=== PATIENT | female | born 1995 | race African-American/Black ===

== ENCOUNTER 2022-09-27 18:17 | Emergency (ER) | payer MEDICAID, SELFPAY ==
--- NOTE | 2022-09-27 18:20 | ED_ITS ---
HPI - Ear Problem General Chief complaint: Ear Problems Stated complaint: ear pain Time Seen by Provider: 09/27/22 18:22 Source: patient Mode of arrival: ambulatory Limitations: no limitations and language barrier History of Present Illness HPI Narrative: 27 yo female healthy here with right ear pain, itching. No drainage. No hearing change. No recent URI symptoms. Related Data Previous Rx's Medication Instructions Recorded acetaminophen 325 mg tablet 650 mg PO Q6H PRN fever or pain 09/27/22 (Tylenol) #30 tabs amoxicillin 500 mg tablet 500 mg PO BID #20 tabs 09/27/22 ibuprofen 600 mg tablet 600 mg PO Q8H PRN pain #30 tabs 09/27/22 ofloxacin 0.3 % ear drops 10 drp otic (ears) DAILY 7 days #5 09/27/22 mL Allergies Allergy/AdvReac Type Severity Reaction Status Date / Time No Known Allergies Allergy Verified 09/27/22 18:24 Review of Systems Review of Systems: Yes all other systems are reviewed and are negative Constitutional: Constitutional: Reports no additional constitutional complaints, Denies body ache(s), Denies chills, Denies fever(s), Denies headache(s) and Denies weakness Eyes: Eyes: Reports no additional eye complaints and Denies change in vision ENT: Reports system reviewed and no additional complaints, except as documented, Reports Normal hearing present, Denies dizziness, Reports otalgia, Denies headache(s), Denies nasal congestion, Denies nasal discharge, Denies neck pain and Denies sore throat Cardiovascular: Cardiovascular: Reports no additional cardiovascular complaints, Denies chest pain, Denies leg edema and Denies dyspnea Respiratory: Respiratory: Reports no additional respiratory complaints, Denies cough and Denies dyspnea Gastrointestinal: Gastrointestinal: Reports no additional gastrointestinal complaints, Denies abdominal pain, Denies diarrhea, Denies nausea and Denies vomiting Genitourinary: Genitourinary: Reports no additional female genitourinary complaints and Denies urinary incontinence Musculoskeletal: Musculoskeletal: Reports no additional musculoskeletal complaints, Denies back pain, Denies arthralgias, Denies joint swelling, Denies neck pain, Denies numbness and Denies tingling Integumentary/Breasts: Skin/Breast: Reports system reviewed and no additional complaints, except as docu and Denies rash Neurologic: Reports system reviewed and no additional complaints, except as documented, Reports Normal hearing present, Denies Abnormal speech present, Denies dizziness, Denies headache(s), Denies numbness, Denies tingling and Denies weakness PMFSH Past Medical History Attestation statement: The following information was validated with the patient. Source: old records reviewed and nursing notes reviewed Physical Exam Vital Signs: Vital Signs: Last Vital Signs Temp 98.2 F 09/27/22 18:21 Pulse 72 09/27/22 18:21 Resp 18 09/27/22 18:21 BP 129/71 09/27/22 18:21 Pulse Ox 98 09/27/22 18:21 O2 Del Method Room Air 09/27/22 18:21 BMI result Body Mass Index 33.6 Const: General: cooperative, healthy appearing, comfortable and no acute distress Orientation/consciousness: patient oriented x3 Limitations: no limitations HEENT: Head: Yes normal to inspection Ears: hearing grossly normal bilat erally, TM normal on the left, mastoids normal, no periauricular adenopathy, Abnormal EAC present erythema, edema, EAC tenderness and otic discharge and TM abnormal bulging, wth effusion, erythematous and with fluid behind the TM General nose exam: Normal external nose present Face and sinus: Yes normal facial exam Mouth: Normal oral and palatal mucosa present Throat: Yes posterior oropharynx normal, Yes tonsils normal and Yes uvula midline Eyes: General: appearance normal, both eyes and all related structures Pupils: Equal, round and reactive pupils present Neck: Neck: Yes normal visual inspection, Yes full ROM, Yes no lymphadenopathy and Yes no meningeal signs Chest: Chest palpation & inspection: normal inspection of the chest Resp: Effort & Inspection: normal respiratory effort Auscultation: clear to auscultation bilaterally Cardio: Rate: regular rate Rhythm: regular rhythm Peripheral pulses: Peripheral pulses 2+ throughout GI: Inspection: Yes normal to inspection Palpation (GI): Soft to palpation and nontender Auscultation: normal bowel sounds Back/Spine/Pelvis: Thoracic/Lumbar Spine: thoracic and lumbar spine normal to inspection Skin: General skin exam: no rashes or lesions noted Neuro: General: patient oriented x3, no meningeal signs, no focal motor deficits and normal sensation to monofilament Cranial nerves: Yes Equal, round and reactive pupils present and Yes Normal hearing present Cognition (Neuro): normal cognition Speech: No Abnormal speech present Gait exam (Neuro): Normal gait present Motor exam (neuro): 5/5 motor strength present throughout Extrem: General: Yes normal to inspection Medical Decision Making Medical Decision Making MDM Narrative: 27 yo female here with right ear pain/itching beginning today Exam c/w with otitis externa/AOM. No evidence of mastoid tenderness, periauricular adenopathy. WIll treat with amoxicillin x 10 days, ofloxacin gtt Differential Diagnosis Differential Diagnoses: The differential diagnosis associated with the presentation includes otitis externa, AOM, malignant otitis externa, mastoditis, TM perforation Discharge Plan Discharge Clinical Impression: Otitis media, Otitis externa Patient Disposition: Home, Self-Care Instructions: Otitis Externa (ED), How to Use Ear Drops (ED), Ear Infection (ED) Prescriptions: New amoxicillin 500 mg tablet 500 mg PO BID Qty: 20 0RF ofloxacin 0.3 % drops 10 drp otic (ears) DAILY 7 Days Qty: 5 0RF ibuprofen 600 mg tablet 600 mg PO Q8H PRN (Reason: pain) Qty: 30 0RF acetaminophen [Tylenol] 325 mg tablet 650 mg PO Q6H PRN (Reason: fever or pain) Qty: 30 0RF Referrals: Physician,None [Primary Care Provider] - 1 week
[2022-09-27 18:21] VITALS: BP 129/71; PULSE 72; RESP 18; TEMP 36.8; O2SAT 98; BMI 33.6
== END 2022-09-27 18:36 | disposition home or self-care (01) ==
LOC: HO.ED 18:33
PROVIDERS: Emergency Provider Student in an Organized Health Care Education/Training Program
DX: H66.93 Otitis media, unspecified, bilateral (principal); H60.93 Unspecified otitis externa, bilateral; H92.03 Otalgia, bilateral
CPT/HCPCS: 99282; 99283

== ENCOUNTER 2023-05-01 11:41 | Emergency (ER) | payer OTHER, SELFPAY ==
--- NOTE | ~2023-05-01 | US_ITS ---
EXAMINATION: US OBSTETRICAL ULTRASOUND CLINICAL INFORMATION: Pain and bleeding. HCG 2437 COMPARISON: None available. LMP: 03/19/2023. Gestational age by maternal dates is 6 weeks 1 day. Estimated date of delivery by maternal dates is 12/23/2022 TECHNIQUE: Transvaginal scanning was performed FINDINGS: There is an irregularly-shaped intrauterine gestational sac filled a large amount of mobile debris. There is no evidence of a yolk sac, pole or heart rate. Based on the gestational sac size of 2.75 cm estimated gestational age would be 8 weeks 0 days. There is fluid within the endocervical canal. MATERNAL ADNEXA: The right maternal ovary measures 3.6 x 1.7 x 2.1. The left maternal ovary measures 4.8 x 2.5 x 3.5 cm. Hyperechoic area seen adjacent to the left ovary likely represents bowel. It appears to move with abdominal compression. There is no significant maternal adnexal mass. There is a small amount of free fluid within the cul-de-sac. US/US OB pelvic and transvaginal IMPRESSION: Irregularly shaped intrauterine gestational sac filled with a large amount of mobile debris. No evidence of yolk sac, pole or cardiac activity. Based on the gestational sac size of 2.75 cm, estimated gestational age would be 8 weeks 0 days. These findings are concerning for demise or lack of development. Follow-up ultrasound in 7-10 days could be performed for further evaluation.
[2023-05-01 11:59] VITALS: BP 119/80; PULSE 95; RESP 17; TEMP 36.6; O2SAT 99; BMI 36.7
--- NOTE | 2023-05-01 12:02 | ED.GENADULT ---
HPI - General Adult General Chief complaint: Vaginal Bleeding Stated complaint: Not feeling well - Time Seen by Provider: 05/01/23 16:42 Source: patient Mode of arrival: ambulatory Limitations: no limitations History of Present Illness HPI narrative: 28-year-old female presents to the ED for lower abdominal cramping with mild vaginal bleeding. Patient had 1st episode 2 days ago today started having symptoms again. Patient states presently only sees blood when she wipes. Patient denies any chest pain, shortness of breath, or any recent trauma. Related Data Previous Rx's Medication Instructions Recorded acetaminophen 325 mg tablet 650 mg (2 x 325 mg) PO Q6H PRN 09/27/22 (Tylenol) fever or pain #30 tabs amoxicillin 500 mg tablet 500 mg PO BID #20 tabs 09/27/22 ibuprofen 600 mg tablet 600 mg PO Q8H PRN pain #30 tabs 09/27/22 ofloxacin 0.3 % ear drops 10 drp otic (ears) DAILY 7 days #5 09/27/22 mL cephalexin 500 mg capsule 500 mg PO Q12H 7 days #14 caps 05/01/23 Allergies Allergy/AdvReac Type Severity Reaction Status Date / Time No Known Allergies Allergy Verified 05/01/23 11:58 Review of Systems Review of Systems: Lower abdominal cramping vaginal spotting Yes all other systems are reviewed and are negative [facility] Social History Social History Alcohol intake: never Smoked in Last 30 Days: No Use of substances other than those prescribed or required for medical reasons: No Advance Directives: No Advance Directives Information Provided: No Patient : Yes Physical Exam ED Vital Signs: Vital Signs - 24 hr 05/01/23 11:59 05/01/23 17:29 05/01/23 17:46 Temperature 98 F Pulse Rate 95 89 Respiratory Rate 17 19 18 Blood Pressure 119/80 124/71 Pulse Oximetry 99 99 Oxygen Delivery Method Room Air Room Air 05/01/23 19:31 Temperature 98.2 F Pulse Rate 89 Respiratory Rate 16 Blood Pressure 103/69 Pulse Oximetry 100 Oxygen Delivery Method Room Air BMI result Body Mass Index 36.7 Const General: cooperative, healthy appearing, comfortable, no acute distress, well developed, alert, awake and Physically active Orientation/consciousness: oriented to person, oriented to place, oriented to time and patient oriented x3 [facility] [place] Head: Yes normal to inspection, Yes No palpable skull fracture present, Yes normocephalic and Yes atraumatic Eyes General: appearance normal, both eyes and all related structures Neck Neck: Yes normal visual inspection, Yes full ROM, Yes no lymphadenopathy, Yes no meningeal signs, Yes trachea midline, Yes supple, No anterior neck swelling and No tender Chest Chest palpation & inspection: normal inspection of the chest and normal palpation of entire chest wall Resp Effort & Inspection: normal respiratory effort and able to speak in complete sentences Auscultation: clear to auscultation bilaterally Cardio Jugular venous distension: no JVD Heart sounds: S1 normal heart sound present and S2 normal heart sound present GI Inspection: Yes normal to inspection Palpation (GI): Soft to palpation, not firm, nontender, no guarding and not rigid General: Yes Bimanual renal exam normal bilaterally and Yes no CVA tenderness External Female Exam: normal external appearance Speculum Exam - Vagina: vaginal bleeding (mild from cervix) Speculum Exam - Cervix: normal appearance of the cervix and Cervical os closed Bimanual exam- vagina & uterus: normal bimanual exam OB/external & speculum: vaginal bleeding (mild from cervix) Back/Spine/Pelvis Back: no CVA tenderness and No back tenderness Skin General skin exam: no rashes or lesions noted, elasticity normal and turgor normal Neuro General: oriented to person, oriented to place, oriented to time, patient oriented x3, gait normal, tone normal, moves all extremities, Normal light touch and pain sensation, no meningeal signs, no focal motor deficits, CN's II-XI intact bilaterally and normal sensation to monofilament Extrem General: Yes normal to inspection and Yes full ROM Psych Appearance: grossly normal, well kempt and not disheveled Course Course Course Narrative: RME- 28-year-old female presents for evaluation of lower abdominal pain and vaginal bleeding. She reports that she recently found out that she is . Her last menstrual cycle was March 19. She is . Plan for labs, ultrasound and type and screen Medical Decision Making Medical Decision Making MDM Narrative: 28-year-old female presents to ED for lower abdominal cramping and mild vaginal bleeding. Patient states 1st episode bleeding was 2 days ago and then had some this morning. Patient states only sees blood when she wiped. Patient denies any chest pain or shortness of breath or any recent trauma. Labs ultrasound ordered from triage. Ultrasound shows possible demise. Rh ordered. 7:15Pm: Case discussed with Dr. Braun who states patient could be discharged. Patient informed to call for follow-up. Patient given copy of labs and ultrasound results. He states patient does not need Rhoghma Differential Diagnosis Differential Diagnoses: The differential diagnosis associated with the presentation includes ( demise, threatened ) Admission/Observation Consideration of admission/observation: Escalation of care including admission/observation considered Consult Healthcare Provider Management of the patient was discussed with: Manager Salt (Dr. Braun) Lab Data MDM Lab Attestation statement: I reviewed the patient's lab results. 05/01/23 12:48 05/01/23 12:48 Labs: Lab Results 05/01/23 05/01/23 05/01/23 Range/Units 12:48 17:15 17:19 WBC 8.8 (4.8-10.8) X10*3/uL RBC 4.87 (4.20-5.50) X10*6/uL Hgb 12.5 (12.0-16.0) g/dl Hct 39.9 (37.0-47.0) % MCV 81.9 (80.0-98.0) fL MCH 25.7 L (27.0-33.0) pg MCHC 31.3 (31.0-35.0) g/dl RDW 13.1 (11.0-16.0) % Plt Count 239 (160-400) X10*3/uL MPV 10.2 (9.4-12.3) fL Immature Gran % (Auto) 0.5 H (0.0-0.4) % Neut % (Auto) 62.9 (45-73) % Lymph % (Auto) 23.2 (20-40) % [place] % (Auto) 9.8 (2-11) % Eos % (Auto) 3.3 (0-4) % Baso % (Auto) 0.3 (0-2) % Lymph # (Auto) 2.0 (1.2-4.9) X10*3/uL [place] # (Auto) 0.9 (0.1-1.2) X10*3/uL Eos # (Auto) 0.3 (0.0-0.4) X10*3/uL Baso # (Auto) 0.0 (0.0-0.2) X10*3/uL Abs Immat Gran (auto) 0.04 H (0.00-0.03) X10*3/uL Absolute Neuts (auto) 5.5 (2.0-8.3) x10*3/uL Absolute Nucleated RBC 0.000 (0.0-0.012) X10*3/uL Nucleated RBC % (auto) 0.0 (0.0-0.2) /100WBC PT 11.9 (11.1-13.3) SEC INR 1.0 (0.9-1.1) APTT 30.5 (26.0-36.4) SEC Sodium 136 (135-145) mmol/L Potassium 4.2 (3.3-5.1) mmol/L Chloride 109 H (96-108) mmol/L Carbon Dioxide 22 (22-29) mmol/L Anion Gap 9 L (12-20) BUN 11 (9-16) mg/dL Creatinine 0.83 (0.5-1.4) mg/dL Estim Creat Clear Calc 139.3 Estimated GFR > 60 Random Glucose 101 (60-115) mg/dL Calcium 9.8 (8.4-10.2) mg/dL Total Bilirubin 0.4 (0.0-1.0) mg/dL AST 15 (5-31) U/L ALT 14 (0-31) U/L Alkaline Phosphatase 69 (39-117) U/L Total Protein 7.4 (6.5-8.0) g/dL Albumin 4.0 (3.5-5.0) g/dL Lipase 26 (8-78) U/L Beta HCG, Quant 2437 mIU/mL Urine Color Yellow Urine Appearance Turbid Urine pH 5.5 (5.0-9.0) Ur Specific [place] 1.025 (1.005-1.025) Urine Protein Negative (Neg-Trace) mg/dL Urine Glucose (UA) Negative (Negative) mg/dL Urine Ketones 15 (Negative) mg/dL Urine Blood Large (3+) H (Negative) Urine Nitrite Negative (Negative) Ur Leukocyte Esterase Negative (Negative) Urine RBC 3-5 H (0-2) /HPF Urine WBC 6-10 H (0-5) /HPF Ur Squamous Epith Cells >20 (0-2) /HPF Urine Bacteria 4+ (None Seen) Hyaline Casts 0-2 (0-2) /LPF Blood Type B Positive Antibody Screen NEGATIVE Independent Interpretation I performed an independent interpretation of an: Ultrasound Radiology Impression Discussion of test interpretation with radiology: I have reviewed the radiologist's reading. External Record Review External record reviewed: Other Prescription Management I considered prescription management with: Antibiotic Discharge Plan Discharge Clinical Impression: Threatened Patient Disposition: Home, Self-Care Instructions: Threatened Miscarriage (ED), Urinary Tract Infection in (ED) Additional Instructions: Ltrason ou a te montre posib lanm? fetis la. Radyol?g rek?mande repete ultrason nan 7-10 celio. 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 Retounen nan ED la imedyatman geo nenp?t doul? nan vant, lafy?v, frison, senyen abondan nan vajen, febl?s, v?tij, oswa nenp?t l?t sent?m kons?nan. Epitou swivi ak founis? swen prensipal ou. Your ultrasound showed possible demise. Radiologist recommend repeat ultrasound in 7-10 days. Spoke with our in-house director of construction who recommends follow-up with his clinic. Return to the ED immediately for any abdominal pain, fever, chills, profuse vaginal bleeding, weakness, dizziness, or any other concerning symptoms. Also follow-up with your primary care provider Prescriptions: New cephalexin 500 mg capsule 500 mg PO Q12H 7 Days Qty: 14 0RF No Action amoxicillin 500 mg tablet 500 mg PO BID Qty: 20 0RF ofloxacin 0.3 % drops 10 drp otic (ears) DAILY 7 Days Qty: 5 0RF ibuprofen 600 mg tablet 600 mg PO Q8H PRN (Reason: pain) Qty: 30 0RF acetaminophen [Tylenol] 325 mg tablet 650 mg PO Q6H PRN (Reason: fever or pain) Qty: 30 0RF Referrals: Gorge Braun MD [Physician] - (Possible demise as per ultrasound at 8 weeks. ) Interventions: ED Discharge Assessment Last Done: 05/01/23 19:35 Discharge Date/Time: 05/01/23 20:09 Print Language: Nepali
[2023-05-01 12:51] LABS: MANUAL DIFF FLAG NO
[2023-05-01 12:53] LABS: Basophils Percent Auto 0.3 % (0-2); Eosinophils Absolute Auto 0.3 X10*3/uL (0.0-0.4); Eosinophils Percent Auto 3.3 % (0-4); Hematocrit 39.9 % (37.0-47.0); Hemoglobin 12.5 g/dl (12.0-16.0); Imm Gran Abs Auto 0.04 X10*3/uL (0.00-0.03); Imm Gran Pct Auto 0.5 % (0.0-0.4); Lymphocytes Percent Auto 23.2 % (20-40); Mean Corpuscular HGB Conc 31.3 g/dl (31.0-35.0); Mean Corpuscular Hemoglobin 25.7 pg (27.0-33.0); Mean Corpuscular Volume 81.9 fL (80.0-98.0); Mean Platelet Volume 10.2 fL (9.4-12.3); Monocytes Absolute Auto 0.9 X10*3/uL (0.1-1.2); Monocytes Percent Auto 9.8 % (2-11); Neutrophils Absolute Auto 5.5 x10*3/uL (2.0-8.3); Neutrophils Percent Auto 62.9 % (45-73); Platelet Count 239 X10*3/uL (160-400); Red Blood Count 4.87 X10*6/uL (4.20-5.50); Red Cell Distribution Width 13.1 % (11.0-16.0); White Blood Count 8.8 X10*3/uL (4.8-10.8)
[2023-05-01 13:13] LABS: Alanine Aminotransferase 14 U/L (0-31); Alkaline Phosphatase 69 U/L (39-117); Anion Gap 9 (12-20); Aspartate Amino Transferase 15 U/L (5-31); Bilirubin Total 0.4 mg/dL (0.0-1.0); Blood Urea Nitrogen 11 mg/dL (9-16); Calcium 9.8 mg/dL (8.4-10.2); Carbon Dioxide 22 mmol/L (22-29); Chloride 109 mmol/L (96-108); Creatinine Clr Calc Pharmacy 139.3; Estimated Glomerular Filt Rate > 60; Glucose Random 101 mg/dL (60-115); HCG Quantitative 2437 mIU/mL; Lipase 26 U/L (8-78); Potassium 4.2 mmol/L (3.3-5.1); Sodium 136 mmol/L (135-145); Total Protein 7.4 g/dL (6.5-8.0)
[2023-05-01 17:29] VITALS: BP 124/71; PULSE 89; RESP 19; O2SAT 99
[2023-05-01 17:30] LABS: Appearance Urine Turbid; Color Urine Yellow; Glucose Urine UA Negative (Negative); Leukocyte Esterase Urine Negative (Negative); Nitrite Urine Negative (Negative); PH 5.5 (5.0-9.0); Specific Gravity - Urine 1.025 (1.005-1.025); UMIC TRIGGER UACC YES; Urine Blood Large (3+) (Negative); Urine Ketones 15 mg/dL (Negative); Urine Protein Negative (Neg-Trace)
[2023-05-01 17:35] LABS: Prothrombin Time 11.9 SEC (11.1-13.3)
[2023-05-01 17:38] LABS: Partial Thromboplastin Time 30.5 SEC (26.0-36.4)
[2023-05-01 17:46] VITALS: RESP 18
--- NOTE | 2023-05-01 17:48 | PC.NURSE ---
Melvina Mak wood piler used, #[id number]. Pt reports being 1x month , Has been bleeding since friday and having 5/10 lower abd cramping. skin pwd. able to make needs known MAEI, respirations even and unlabored.
[2023-05-01 18:02] LABS: Bacteria Urine 4+ (None Seen); Hyaline Casts Urine 0-2 /LPF (0-2); Squamous Epithelial Cell Urine >20 /HPF (0-2); UACC Culture Trigger YES
[2023-05-01 19:31] VITALS: BP 103/69; PULSE 89; RESP 16; TEMP 36.8; O2SAT 100
[2023-05-02 03:32] LABS: CT PCR NOT DETECTED (Not Detect.); NG PCR NOT DETECTED (Not Detect.)
--- NOTE | 2023-05-02 08:21 | P.CONOB_ITS ---
[facility] [facility] MAGISTRATE - CN: HPI Data of Consult Consult date: 05/01/23 Primary Care Provider: Unknown Physician Consult Narrative Narrative: Late entry note I was consulted on Antwan Vincent who is a 28 year old presenting to the ED with lower abdominal cramping with mild vaginal bleeding. Patient had 1st episode 2 days ago today started having symptoms again. No other concerns. Blood type B positive, antibody screen negative cc:: CC: OB [facility] Social History Social History Alcohol intake: never Smoked in Last 30 Days: No Use of substances other than those prescribed or required for medical reasons: No Advance Directives: No Advance Directives Information Provided: No Patient : Yes Meds Allergies Allergy/AdvReac Type Severity Reaction Status Date / Time No Known Allergies Allergy Verified 05/01/23 11:[address] MAGISTRATE Physical Exam Vitals Vital signs: Temp Pulse Resp BP Pulse Ox O2 Del Method 98.2 F 89 16 103/69 100 Room Air 05/01/23 19:31 05/01/23 19:31 05/01/23 19:31 05/01/23 19:31 05/01/23 19:31 05/01/23 19:31 BMI result Body Mass Index 36.7 Additional Comments: Physical exam per REBECA Tinoco described as the following: Minimal amount of bleeding per vagina, no evidence of active bleeding, no cervical motion tenderness uterine or adnexal tenderness. [facility] [facility] MAGISTRATE - Results Labs 05/01/23 12:48 05/01/23 12:48 Labs: Short CBC 05/01/23 Range/Units 12:48 WBC 8.8 (4.8-10.8) X10*3/uL Hgb 12.5 (12.0-16.0) g/dl Hct 39.9 (37.0-47.0) % Plt Count 239 (160-400) X10*3/uL BMP 05/01/23 12:48 Sodium 136 Potassium 4.2 Chloride 109 H Carbon Dioxide 22 BUN 11 Creatinine 0.83 Calcium 9.8 Liver Function 05/01/23 Range/Units 12:48 Total Bilirubin 0.4 (0.0-1.0) mg/dL AST 15 (5-31) U/L ALT 14 (0-31) U/L Alkaline Phosphatase 69 (39-117) U/L Albumin 4.0 (3.5-5.0) g/dL Urine 05/01/23 Range/Units 17:15 Urine Color Yellow Urine Appearance Turbid Urine pH 5.5 (5.0-9.0) Ur Specific [place] 1.025 (1.005-1.025) Urine Protein Negative (Neg-Trace) mg/dL Urine Glucose (UA) Negative (Negative) mg/dL Antibody Screen Antibody Screen NEGATIVE 05/01/23 17:19 Imaging US - abdomen: Radiologist's impression: ITS Impressions Pelvic/Transvag US 05/01/23 14:33 IMPRESSION: Irregularly shaped intrauterine gestational sac filled with a large amount of mobile debris. No evidence of yolk sac, pole or cardiac activity. Based on the gestational sac size of 2.75 cm, estimated gestational age would be 8 weeks 0 days. These findings are concerning for demise or lack of development. Follow-up ultrasound in 7-10 days could be performed for further evaluation. Assessment and Plan (1) Missed : Status: Acute Recommended to REBECA Tinoco the following: Instructions to be given to patient to follow-up in the office tomorrow, come back to the emergency room in case of heavy bleeding pelvic cramping, fever above 100.4, nausea or vomiting or any other concerns. I spent a total of 20 minutes reviewing the chart, communication to emergency room provider and documenting the medical record
[2023-05-02 15:17] LABS: BV Int Neg Control Negative (Negative); BV Int Pos Control Positive (Positive)
== END 2023-05-01 20:09 | disposition home or self-care (01) ==
PROVIDERS: Physician Assistant; Emergency Provider Internal Medicine
DX: O02.1 Missed abortion (principal); N93.8 Other specified abnormal uterine and vaginal bleeding; R25.2 Cramp and spasm; Z79.899 Other long term (current) drug therapy
CPT/HCPCS: 0353U; 36415; 76801; 76817; 80053; 81001; 83690; 84702; 85025; 85610; 85730; 86850; 86900; 86901; 87086; 87480; 87510; 87660; 99284

== ENCOUNTER → 2023-05-01 15:09 | Outpatient (BNV) | payer OTHER, SELFPAY | PROVIDERS: Emergency Provider Internal Medicine; Visit Provider Obstetrics & Gynecology | DX: O02.1 Missed abortion (principal) | CPT/HCPCS: 99283 ==

== ENCOUNTER 2023-05-07 12:36 | Outpatient (AMB) | payer OTHER, SELFPAY ==
[2023-05-07 13:03] VITALS: BP 108/70; BMI 36.7
--- NOTE | 2023-05-07 13:03 | A.OFFVIS_ITS ---
Intake Vital Signs 05/07/23 13:03 Height 5 ft 10 in Weight 255 lb 11.779 oz BMI 36.7 BP 108/70 Intake Visit Reasons: ER follow up/missed Compressed Gases Tester Required: Yes Compressed Gases Tester Language: Melvina Mak Compressed Gases Tester Name: Chicho [id number] Information Interpreted: non-clinical & clinical Etl Application Developer: Etl Application Developer Present (Krista ASH) Accompanied by: Self / Same As Patient Allergies No Known Allergies Allergy (Verified 05/14/23 09:23) HPI HPI Comments History of Present Illness Details The patient is presenting for emergency room follow-up. The patient went to the emergency room 6 days ago, on 05/01 for pelvic cramping and vaginal spotting. The following workup was done the emergency room including H&H 12.5/39.9, hCG 2437, BV panel was positive for Gardnerella blood type was B positive antibody screen negative. A pelvic Ultrasound done on 05/01/2022 showed the following: There is an irregularly-shaped intrauterine gestational sac filled a large amount of mobile debris. There is no evidence of a yolk sac, pole or heart rate. Based on the gestational sac size of 2.75 cm estimated gestational age would be 8 weeks 0 days. There is fluid within the endocervical canal. MATERNAL ADNEXA: The right maternal ovary measures 3.6 x 1.7 x 2.1. The left maternal ovary measures 4.8 x 2.5 x 3.5 cm. Hyperechoic area seen adjacent to the left ovary likely represents bowel. It appears to move with abdominal compression. There is no significant maternal adnexal mass. There is a small amount of free fluid within the cul-de-sac. Since then the patient had 2 episodes of vaginal bleeding and passage of large blood clots. No abdominal pain or cramping no other symptoms Repeat ultrasound done today verbal report by Dr. Smallwood, official report not available yet, showed the following: Abnormal heterogenous endometrium suggestive of missed and a left adnexal mass and left ovarian ovarian hyperechoic area possible colpo luteum can not exclude ectopic HCG repeated today was [id number] [facility] Medical History (Updated 05/18/23 @ 19:28 by REBECA Harris) Ectopic Missed Surgical History Hx of section Social History Household Members: Spouse and Children Housing: House Alcohol intake: never Patient Tobacco Use Status: Never used Tobacco Current occupational status: unemployed Sexual orientation: Straight/Heterosexual Gender identity: Female Review of Systems Const All systems reviewed & are unremarkable except as noted in HPI and below Physical Exam Vital Signs: Last Vital Signs BP 108/70 05/07/23 13:03 BMI result Body Mass Index 36.7 GI Palpation (GI): Soft to palpation and nontender Percussion: Yes normal to percussion Auscultation: normal bowel sounds General: Yes no CVA tenderness External Female Exam: normal external appearance and normal appearance of the urethra Speculum Exam - Vagina: normal appearance of the vagina, normal palpation, no lesions and no masses Speculum Exam - Cervix: normal appearance of the cervix, normal palpation, no lesions, no masses and nontender Bimanual exam- vagina & uterus: normal bimanual exam, normal palpation, uterine size normal, normal palpation, uterine shape normal, No Cervical tenderness present and non-tender Bimanual Exam- Adnexa, other: normal adnexae Back/Spine/Pelvis Back: no CVA tenderness Assessment & Plan Assessment & Plan (1) Bacterial vaginosis: Code(s): N76.0 - Acute vaginitis; B96.89 - Other specified bacterial agents as the cause of diseases classified elsewhere Plan: GC and chlamydia cultures with BV panel taken. Will treat with Flagyl 500 mg p.o. b.i.d. x 7 days, Instructions given to the patient to refrain from sexual activity or to use condoms consistently and correctly during the BV treatment r egimen, not to douch, it might increase the risk for relapse, and to call if symptoms persist or recur. (2) Abnormal : Comment: SAB versus ectopic Code(s): O26.90 - related conditions, unspecified, unspecified trimester Plan: Discussed with the patient the ultrasound finding done today abnormal endometrium suggestive of missed in addition to suspicion of an ectopic , compared to the ultrasound done on 05/01 showing a intrauterine irregular gestational sac ;in addition to discussing with the patient the HCG level on 05/01 and in 05/07 projected to be below the 49% q 48 hours, explained to the patient the possibility that hCG went up more till 3 days after the emergency room visit then the patient had passage of blood clots, followed by a decrease hCG level. The differential diagnosis discussed with the patient included either early ectopic versus SAB with passage of the previously identified intrauterine gestation sac an incidental finding on the left adnexa that has not related ectopic . Options of treatment were discussed with the patient includin- Expected management for the coming 12 hours and repeat HCG with or without pelvic Ultrasound to assess the trend of the hCG whether it is going down or not. 2- Treat as if she has tubal with methotrexate or 3- Uterine aspiration. All the pros and cons and risks and benefits of each treatment approach were discussed with the patient. 1-The advantage of expectant management were discussed with the patient, being prevention of possible exposure to teratogenicity or risk of spontaneous in case of an early normal , the risk being delayed diagnosis and treatment of ectopic and possible rupture with all its possible consequences including intra-abdominal bleed and possible . 2- Explained to the patient that the use of curettage as a diagnostic tool is limited by the potential for disruption of a viable . In addition, discussed with the patient that the sensitivity of curettage in finding chorionic villi is only 70 percent. Pipelle endometrial biopsy is even less sensitive than curettage for detection of villi; sensitivities reported is between 30 and 60 percent. If curettage is performed, serum HCG levels can be followed postcurettage if histopathology does not confirm the clinical impression. When an IUP has been evacuated, hCG levels should drop by at least 15 percent the day after evacuation. There might be an advantage of performing aspiration given the previous finding on the ultrasound on 05/01 showing intrauterine gestational sac. Knowing the results of aspiration avoids unnecessary methotrexate treatment . 3-Furthermore discussed with the patient the 3rd option which is treatment with methotrexate without uterine aspiration. The advantage of early treatment of presumed tubal with methotrexate was discussed with the patient, including but not limited to reducing the risk of ruptured ectopic with all its potential consequences, in addition discussed with the patient methotrexate treatment risks including but not limited to, possible exposure to methotrexate to a normal intra and and increase the risk of spontaneous and congenital anomalies. The patient decided to wait for 12 hours repeat HCG , proceed with suction D&C with frozen section after were to rule out intrauterine gestation and if that is no evidence of intrauterine gestation by pathology with proceed with methotrexate treatment . Instructions given to the patient to stay NPO after midnight, explained to the patient the importance of compliance and timely HCG follow-up in plan hours for an early and accurate diagnosis, and to call or go to the emergency room if pain or vaginal bleeding occurs, all questions answered, the patient verbalized understanding and agreed with the plan. Follow-up in 48 hours for further management. Orders: Orders US OB pelvic and transvaginal 05/07/23 O02.1 - Missed HCG Quantitative 05/08/23 O26.90 - related conditions, unspecified, unspecified trimester CT NG by PCR 05/07/23 O02.1 - Missed Medications: New metronidazole 500 mg PO BID 14 tabs 0RF 7 days Coding Level of Care Code Est Pt Level 3 (57900) Diagnoses Bacterial vaginosis N76.0; B96.89 Abnormal O26.90
== END 2023-05-07 14:30 | disposition home or self-care (01) ==
LOC: HO.HWS 12:37
PROVIDERS: Visit Provider Obstetrics & Gynecology
DX: N76.0 Acute vaginitis (principal); B96.89 Other specified bacterial agents as the cause of diseases classified elsewhere; O26.90 Pregnancy related conditions, unspecified, unspecified trimester
CPT/HCPCS: 99213

== ENCOUNTER 2023-05-07 12:36 | Outpatient (REF) | payer OTHER, SELFPAY | END 2023-05-07 12:37 | disposition home or self-care (01) | LOC: HO.LNP 12:36 | PROVIDERS: Visit Provider Obstetrics & Gynecology | DX: O02.1 Missed abortion (principal); O23.599 Infection of other part of genital tract in pregnancy, unspecified trimester; B96.89 Other specified bacterial agents as the cause of diseases classified elsewhere | CPT/HCPCS: 99212; J2590; J3010 ==

== ENCOUNTER 2023-05-07 13:49 | Outpatient (REF) | payer OTHER, SELFPAY ==
--- NOTE | ~2023-05-07 | US_ITS ---
EXAMINATION: US OBSTETRICAL ULTRASOUND CLINICAL INFORMATION: Missed . Hcg performed on May 01, 2023 was 2437. COMPARISON: May 01, 2023 LMP: March 19, 2023. Gestational age by maternal dates is 7 weeks 0 days. Estimated date of delivery by maternal dates is December 24, 2023. TECHNIQUE: OB ultrasound FINDINGS: Within the endometrial canal there is fluid with some echogenic debris with the appearance of possible missed . I cannot totally exclude an early intrauterine however I do not see evidence of this on today's study. No heart rate is appreciated. There appears to be pseudodecidualized endometrium. On previous OB ultrasound of May 01, 2023 there was question of gestational sac sac which is irregularly shaped with some complex material within it and question blood products. No yolk sac was identified at that time. MATERNAL ADNEXA: The right maternal ovary measures 2.6 x 1.9 x 1.7 cm. No right adnexal abnormality is appreciated. The left maternal ovary measures 4.7 x 2.7 x 3.3 cm. Exophytic to and superior to the left ovary there is a complex echogenic circumscribed structure measuring 1.7 x 1.5 by by 1.8 cm in size. There is a 3.5 mm hypoechoic central areas seen but without internal debris or soft tissue component. There is peripheral vascularity present with question' ring of fire'. This can be seen in ectopic or corpus luteum. There is question of a mildly hypoechoic structure within the left ovary measuring 2.1 x 1.6 x 1.8 cm in size which could possibly represent the corpus luteum with the more exophytic structure possibly representing an ectopic . It would be rare to have both an ectopic and missed uterine . A similar structure was present on the prior ultrasound and on imaging it was mentioned that with compression the structure appeared to move with abdominal compression. There is a small amount of pelvic free fluid present. US/US OB pelvic and transvaginal IMPRESSION: No live intrauterine identified with fluid and echogenic debris seen within the endometrium with appearance of missed . This could also represent complex blood products. Round complex echogenicity structure which appears exophytic to the left ovary with some peripheral vascularity. This could represent an ectopic or possible exophytic corpus luteum. It would be rare to have both an intrauterine as well as ectopic . Close clinical and possible imaging follow-up is necessary. Small amount of fluid in the cul-de-sac. The preliminary report was called by the technologist to Delmi (RN in animal husbandry technician's office) at 13:02 p.m. Patient was instructed to go to the animal husbandry technician's office. This critical result was discussed with Dr. Braun at 5:25 PM on May 07, 2023 and it was ascertained that the content and urgency of the report was understood at the time of direct communication.
[2023-05-07 15:56] LABS: HCG Quantitative 5056 mIU/mL
[2023-05-07 17:35] LABS: CT PCR NOT DETECTED (Not Detect.); NG PCR NOT DETECTED (Not Detect.)
== END 2023-05-07 13:50 | disposition home or self-care (01) ==
LOC: HO.US 13:49
PROVIDERS: Visit Provider Obstetrics & Gynecology
DX: O02.1 Missed abortion (principal)
CPT/HCPCS: 0353U; 76801; 76817; 84702

== ENCOUNTER 2023-05-08 07:11 | Outpatient (REF) | payer OTHER, SELFPAY ==
[2023-05-08 08:28] LABS: HCG Quantitative 5472 mIU/mL
== END 2023-05-08 07:12 | disposition home or self-care (01) ==
LOC: HO.LAB 07:11
PROVIDERS: Visit Provider Obstetrics & Gynecology
DX: O26.90 Pregnancy related conditions, unspecified, unspecified trimester (principal)
CPT/HCPCS: 36415; 58100; 84702; 99212; J1885; J2405; J2590; J2704; J2795; J3010

== ENCOUNTER 2023-05-08 07:41 | Outpatient (AMB) | payer OTHER, SELFPAY ==
--- NOTE | 2023-05-08 07:42 | A.OFFVIS_ITS ---
Intake Vital Signs 05/08/23 07:45 Height 5 ft 10 in Weight 255 lb 11.779 oz BMI 36.7 BP 118/72 Intake Visit Reasons: Follow HCG Bus Driver Supervisor Required: Yes Bus Driver Supervisor Language: Bruneian Creole Bus Driver Supervisor Name: Jayy [id number] Information Interpreted: non-clinical & clinical Flight Operation Coordinator: Flight Operation Coordinator Present Allergies No Known Allergies Allergy (Verified 05/08/23 07:59) Is last menstrual period known: Yes Last menstrual period: 02/10/20 Post menopausal: No Patient : No Do you need a note to return to daycare/school/sports/work: Yes (for surgery on friday) HPI HPI Comments History of Present Illness Details Presenting for follow-up. HCG done kbney=[id number] NPO since midnight No abdominal/pelvic pain no vaginal bleeding Ultrasound report done yesterday showed the following: No live intrauterine with echogenic debris seen in the endometrium with the appearance of missed , this could represent complex blood products Round complex echogenicity structure which appears exophytic to the left ovary with some peripheral vascularity this could represent an ectopic or a possible exophytic corpus luteum it would be rare to have both an intrauterine as well ectopic The patient is on about her options and is interested in uterine aspiration with frozen section as a 1st step in her management PFSH Surgical History Hx of section Social History Household Members: Spouse and Children Housing: House Alcohol intake: never Patient Tobacco Use Status: Never used Tobacco Current occupational status: unemployed Sexual orientation: Straight/Heterosexual Gender identity: Female Female Reproductive History Menstrual Date of last menstrual period: 02/10/20 Total pregnancies: 2 Full term: 2 Review of Systems Card Reports as per HPI and Reports no additional complaints Resp Reports as per HPI and Reports no additional complaints GI Reports as per HPI and Reports no additional complaints Reports as per HPI Physical Exam Vital Signs: Last Vital Signs BP 118/72 05/08/23 07:45 BMI result Body Mass Index 36.7 Const General: cooperative, healthy appearing and comfortable Chest Chest palpation & inspection: normal inspection of the chest and normal palpation of entire chest wall Breast/axilla inspection: normal inspection of the breasts and normal inspection of the axillae Breast/axilla palpation: normal palpation of the breasts, normal palpation of the axillae and no axillary lymphadenopathy Resp Effort & Inspection: normal respiratory effort Auscultation: clear to auscultation bilaterally Percussion: percussion normal Cardio Palpation: normal PMI Rate: regular rate Rhythm: regular rhythm Heart sounds: no murmurs and no rubs Peripheral pulses: Peripheral pulses 2+ throughout GI Inspection: Yes normal to inspection Palpation (GI): Soft to palpation, nontender, no guarding, not rigid and No hepatosplenomegaly present Percussion: Yes normal to percussion Auscultation: normal bowel sounds Rectal Exam - Female: deferred Office Procedures Endometrial Biopsy Details: The patient was counseled regarding the indication and benefits of endometrial sampling to rule out endometrial pathology including not limited to endometrial hyperplasia or endometrial cancer and others; The alternatives (Either do nothing vs. hysteroscopy D&C) & the risks were discussed with the patient including but not limited: pain, uterine perforation, bleeding, infection, possible injury to bladder, bowel, ureter, possible need for blood transfusion with all its possible risks. The patient verbalized understanding all questions answered and signed consent. The patient was placed into the dorsal lithotomy position; a speculum was inserted in the vagina. Using aseptic technique for the procedure, the cervix was cleansed with Betadine. The anterior lip of the cervix was grasped with a single tooth tenaculum. The uterus was sounded to 8 cm with a 4 mm Pipelle was used. Tissues samples were obtained and placed in formalin, in a patient labeled container and sent to the pathology department for frozen 6. At the end of the procedure, there was minimal bleeding noted The patient tolerated the procedure well and was discharged in good condition with the following instructions: Nothing in the vagina until the bleeding stops. No sex until the bleeding stops, to call if any of the following occurs: fever (>100.4), flu-like symptoms, abdominal pain, heavy bleeding, four smelling vaginal discharge. The patient was instructed to schedule a Follow up appointment in 2 weeks to discuss pathology results of the biopsy and treatment options. This note was generated with a voice recognition program. Some errors may have been overlooked during the review of this note. Sometimes these errors may affect the content or meaning of a given sentence. 38562-Etogzzzdphf Biopsy Assessment & Plan Assessment & Plan (1) Abnormal : Comment: SAB versus ectopic Code(s): O26.90 - related conditions, unspecified, unspecified trimester Plan: 8:00 am Explained to the patient that the use of uterine aspiration as a diagnostic tool is limited by the potential for disruption of a viable . In addition, discussed with the patient that the sensitivity of curettage in finding chorionic villi is only 70 percent. Pipelle endometrial biopsy is even less sensitive than curettage for detection of villi; sensitivities reported is between 30 and 60 percent. There might be an advantage of performing aspiration given the previous finding on the ultrasound on 05/01 showing intrauterine gestational sac. Knowing the results of aspiration avoids unnecessary methotrexate treatment . The patient the decided to go ahead with office uterine aspiration using Pipelle. EMB done, see procedure. Will send the tissue for frozen section . 10:[address] Cruz= no evidence of or villi on frozen section Discussed with the patient the results of the frozen section of the EMB, next options of treatment were discussed with the patient this point including but not limited: 1-suction D&C for frozen section 2-methotrexate treatment 3-Medical termination of with mifepristone/misoprostol for possible missed A/B All pros and cons, risks and benefits of each and alternatives were discussed with the patient, the patient decided to proceed with suction D&C with frozen section as a next step in the management. Will proceed with suction D&C under ultrasound guidance and frozen section. Discussed with the patient the result of the ultrasound showing no viable IUP with abnormal endometrial possible missed versus blood products, left adnexal echogenic area possible ectopic versus corpus luteum cyst. All pros, cons, risks and benefits and alternatives were discussed with the patient and the patient the decided to go ahead with Suction D&C. so a more detailed discussion about the procedure was carried on with the patient including the technique, risks including but not limited to : bleeding, infection, uterine perforation, injury to blood vessels, bowels, ureters, bladder, possible need for blood transfusion with all its risks ( HIV, Hep b or C, anaphylaxis reactions), possible need for laparoscopy, laparotomy, or hysterectomy, possible , thromboembolic events, possibility of a negative impact on future fertility because of scar tissue development inside the uterus; alternatives of this option were discussed with the patient including but not limited to, medical termination of or doing nothing. The patient decided to go ahead with Suction D&C and signed the consent. All questions answered, the patient verbalized understanding and agreed with the plan. Doxycycline 200 mg p.o. preop given to the patient. Ultrasound notified. Pathology department notified for frozen section . 12:40 pm Suction D&C completed, under ultrasound guidance minimal tissue were retrieved, sent for frozen section to the pathology department. 13:[address] Cruz, frozen section showed no evidence of chorionic villi 13:30 Discussed with the patient and her the findings on frozen section suction D&C showing no evidence of chorionic villi although the sensitivity of uterine aspiration to diagnose intrauterine is 70% this increases the suspicion of ectopic although a spontaneous is still a small possibility. Discussed with the patient and her the treatment options including the following: Option 1, expected management, repeat HCG tomorrow if there is 15% drop by tomorrow after uterine aspiration , the risk of this approach will be delaying diagnosis of an ectopic intra-abdominal rupture and bleeding and risk of morbidity mortality and the benefit is to prevent methotrexate treatment . Option 2 is methotrexate treatment; All the pros and cons risks and benefits of this approach were discussed with the patient including but not limited to, failure rate of MTX ~15. The patient decided to proceed with methotrexate treatment. Discussed with the patient and her the common side effects of the medication, including skin rash, sensitivity to the sun, indigestion, nausea, sore mouth were discussed with the patient. Less common side effects (occurring in less than 2% of patients) were also discussed a drop in blood cell counts or temporary elevation in liver enzymes. All questions were answered and at 3 and, the patient and her signed the methotrexate consent. In addition, discussed the patient and her the level of HCG being above 5000 will increase the risk of failure, therefore, I recommended a 2 dose methotrexate regimen on day 1 and day 4, the patient and her verbalized understanding. All questions were answered. Lab orders including CBC platelets liver function and creatinine all within jl Methotrexate 50 mg/m2 BSA x 2.39 m2 BSA = 120mg methotrexate IM x 1 ordered to be given today christi and the plan is to repeat dose of 120 mg methotrexate IM on Friday05/11/23 in the emergency . The Patient information sheet was given to the patient and instructed patient not to have intercourse or perform strenuous exercises or activities avoid sun exposure . The patient and her was given to the instructions to go to the emergency room on Friday05/11/2023 for a 2nd methotrexate dose of 120 mg IM and a follow up with hCG day 4 and 7 and follow with an appointment day 7. Signs and symptoms of ruptured ectopic discussed with the patient and her , she is to call or go to the ER if abdominal pain occurs, heavy vaginal bleeding, fever above 100.4, nausea or vomiting. All questions were answered , the patient verbalized understanding. This note was generated with a voice recognition program. Some errors may have been overlooked during the review of this note. Sometimes these errors may affect the content or meaning of a given sentence. Orders: Orders Surgical Today O02.1 - Missed , O26.90 - related conditions, unspecified, unspecified trimester AMB Endometrial Biopsy Today O26.90 - related conditions, unspecified, unspecified trimester HCG Quantitative 05/11/23 O26.90 - related conditions, unspecified, unspecified trimester HCG Quantitative 05/14/23 O26.90 - related conditions, unspecified, unspecified trimester Coding Level of Care Code Est Pt Level 4 (89484) Diagnoses Abnormal O26.90 CPT Codes Endometrial Biopsy - CPT: 20061-Weugfhawsnf Biopsy ([id number])
[2023-05-08 07:45] VITALS: BP 118/72; BMI 36.7
== END 2023-05-08 15:10 | disposition home or self-care (01) ==
LOC: HO.HWS 07:41
PROVIDERS: Visit Provider Obstetrics & Gynecology
DX: O26.90 Pregnancy related conditions, unspecified, unspecified trimester (principal)
CPT/HCPCS: 58100; 99214

== ENCOUNTER 2023-05-08 08:22 | Outpatient (REF) | payer OTHER, SELFPAY | END 2023-05-08 08:23 | disposition home or self-care (01) | LOC: HO.LNP 08:22 | PROVIDERS: Visit Provider Obstetrics & Gynecology | DX: O26.90 Pregnancy related conditions, unspecified, unspecified trimester (principal); O02.1 Missed abortion | CPT/HCPCS: 88305; 88331; 88332 ==

== ENCOUNTER 2023-05-08 10:21 | Day surgery (SDC) | payer OTHER, SELFPAY ==
[2023-05-08] VITALS (13 sets, daily range): BP systolic 115–142; BP diastolic 58–82; PULSE 72–85; RESP 16–20; TEMP 36.1–36.8; O2SAT 98–99; BMI 38.8
--- NOTE | ~2023-05-08 | US_ITS ---
EXAMINATION: US , LIMITED CLINICAL INFORMATION: COMPARISON: Ultrasound 05/07/2022 TECHNIQUE: Limited ultrasound imaging was performed performed in the OR during FINDINGS: There is a dilated endometrial canal measuring 1.01 cm with echogenic debris within. Ultrasound guidance was provided to referring physician US/US OB limited IMPRESSION: Ultrasound guidance was provided intraoperatively to referring
--- NOTE | 2023-05-08 10:20 | MHC.SHP ---
Pre-Procedural Eval Section A Date of Service: 05/08/23 The patient is an INPATIENT: No Changes since office visit: No Cold of Flu in the past 2 weeks, No New Medical Problems, No Changes in Medication and No Patient answered all questions The History & Physical has been completed within 30 days and I have reviewed it.: Yes Section B Chief Complaint: related conditions, unspecified, unspeci Allergies: Allergies Allergy/AdvReac Type Severity Reaction Status Date / Time No Known Allergies Allergy Verified 05/08/23 07:59 Plan Diagnosis/Plan: Unchanged I have reviewed the history and physical and performed a pertinent physical examination on my patient. No changes have occurred unless specified. Time Spent With Patient Time: Total time managing care of this patient today ____ minutes.
--- NOTE | 2023-05-08 10:30 | HO.ANESPROP2 ---
HPI - Anesthesia Eval Consult details Narrative: for sxn D&C for missed Ab vs early ectopic. Estimated GA 8 weeks. PMFSH Active Problems Active Problems: All Active Problems (Updated 05/07/23 @ 17:00 by Gorge Braun MD) Abnormal (Acute) Bacterial vaginosis (Acute) Missed (Acute) Past Medical History Patient : Yes (abnormal ) Family History Family history of problems with anesthesia: No Surgical History Surgical History Hx of section History of Problems with Anesthesia: No Social History Social History Household Members: Spouse and Children Housing: House Alcohol intake: never Patient Tobacco Use Status: Never used Tobacco Use of substances other than those prescribed or required for medical reasons: No Are you DNR?: No Advance Directives: No Advance Directives Information Provided: Yes Patient : Yes (abnormal ) Current occupational status: unemployed Sexual orientation: Straight/Heterosexual Gender identity: Female Meds Allergies Allergy/AdvReac Type Severity Reaction Status Date / Time No Known Allergies Allergy Verified 05/08/23 07:59 Exam Airway Mallampati Class: II TM Dist: <=3cm Neck ROM: Full Loose/Missing/Broken Teeth: No Heart: ok Lungs: ok Assessment and Plan Assessment Anesthesia Assessment: Anesthesia Plan Discussed and Chart Reviewed Final Anesthetic Review Family History of Problems with Anesthesia: No History of Problems with Anesthesia: No NPO: Yes ASA Class: III and Emergency Final Preanesthetic Review: No Changes in Pt Med Stat, Meds/Allgs Chart Reviewed, Consent Obtained/Reviewed and Anes Risks/Benef Reviewed Patient Risk: Intermediate Procedure Risk: Low Anesthetic Plan Anesthetic Plan: GA and Agree w/ Assess. and Plan Disposition: Standard PACU
[2023-05-08] MEDS: Doxycycline Monohydrate 100 MG CAPSULE 200 MG PO (11:36)
[2023-05-08 12:15] LABS: Hematocrit 40.8 % (37.0-47.0); Hemoglobin 12.9 g/dl (12.0-16.0); Mean Corpuscular HGB Conc 31.6 g/dl (31.0-35.0); Mean Corpuscular Hemoglobin 26.4 pg (27.0-33.0); Mean Corpuscular Volume 83.6 fL (80.0-98.0); Mean Platelet Volume 10.6 fL (9.4-12.3); Platelet Count 296 X10*3/uL (160-400); Red Blood Count 4.88 X10*6/uL (4.20-5.50); Red Cell Distribution Width 13.2 % (11.0-16.0)
--- NOTE | 2023-05-08 12:33 | PM.OP ---
Brief Operative Note Date of Service: 05/08/23 Pre-op diagnosis: Abnormal Missed versus ectopic Post-op diagnosis: same (Minimal amount of tissue was retrieved) Procedure: Suction D&C Surgeon: Gorge Braun MD Anesthesia: MAC Was an Clinical Services Consultant used for this Procedure?: No Estimated blood loss (mL): 10 Pathology: other (Uterine aspiration) Condition: stable Disposition: PACU
--- NOTE | 2023-05-08 12:35 | W.PM.OPN ---
Operative Note Operative Note Date of Service: 06/30/20 Narrative: Preop diagnosis: Abnormal : Missed AB versus ectopic Operation: suction D and C Postop diagnosis: The same EBL: Minimal Anesthesia: MAC Servomechanism Designer: None Pathology: Uterine aspiration Sent for frozen section Procedure: The patient was put in a dorsal distal mid position was scrubbed and draped in the usual sterile fashion. A sterile speculum was inserted inside the patient's vagina the anterior lip of the cervix was grasped with single-tooth tenaculum the cervix was dilated up to 7 mm. Under ultrasonographic guidance flexible 7. Suction tip was introduced inside the patient ran cavity till the fundus was hit then turning the suction 360 degrees around products of conception was sucked out toward the uterine cavity. The suction tip was taken out of the patient uterine cavity sharp curettings was followed in 4 quadrants of the uterus till a gritty feeling was felt. The suction tip was reintroduced under ultrasonographic guidance and intrauterine blood was sucked. The suction tip was taken out. Minimal amount of tissue was retrieved. Tissues were sent to pathology for frozen section preop Single-tooth tenaculum was removed hemostasis assured using pressure. The patient tolerated the procedure well and was transferred to the PACU in a stable condition.
--- NOTE | 2023-05-08 12:40 | PC.NURSE ---
Chemistry called into preop to inform us that labs green gel cap was received hemolyzed. Patient currently in OR. OR nurse Millicent made aware. Call placed to phlebotomy to please obtain lab again, patient currently in OR5.
[2023-05-08 14:16] LABS: Alanine Aminotransferase 10 U/L (0-31); Aspartate Amino Transferase 12 U/L (5-31); Creatinine Clr Calc Pharmacy 132.9; Estimated Glomerular Filt Rate > 60
--- NOTE | 2023-05-08 15:20 | PM.EVENT ---
Event Note Date of Service: 05/08/23 Event Note: Frozen section pathology results were negative for chorionic villi for suction D&C tissues. Discussed with the patient and her the findings on frozen section suction D&C showing no evidence of chorionic villi although the sensitivity of uterine aspiration to diagnose intrauterine is 70% this increases the suspicion of ectopic although a spontaneous is still a small possibility. Discussed with the patient and her the treatment options including the following: Option 1, expected management, repeat HCG tomorrow if there is 15% drop by tomorrow after uterine aspiration , the risk of this approach will be delaying diagnosis of an ectopic intra-abdominal rupture and bleeding and risk of morbidity mortality and the benefit is to prevent methotrexate treatment . Option 2 is methotrexate treatment; All the pros and cons risks and benefits of this approach were discussed with the patient including but not limited to, failure rate of MTX ~15. The patient decided to proceed with methotrexate treatment. Discussed with the patient and her the common side effects of the medication, including skin rash, sensitivity to the sun, indigestion, nausea, sore mouth were discussed with the patient. Less common side effects (occurring in less than 2% of patients) were also discussed a drop in blood cell counts or temporary elevation in liver enzymes. All questions were answered and at 3 and, the patient and her signed the methotrexate consent. In addition, discussed the patient and her the level of HCG being above 5000 will increase the risk of failure, therefore, I recommended a 2 dose methotrexate regimen on day 1 and day 4, the patient and her verbalized understanding. All questions were answered. Lab orders including CBC platelets liver function and creatinine all within jl Methotrexate 50 mg/m2 BSA x 2.39 m2 BSA = 120mg methotrexate IM x 1 ordered to be given today christi and the plan is to repeat dose of 120 mg methotrexate IM on Friday05/11/23 in the emergency . The Patient information sheet was given to the patient and instructed patient not to have intercourse or perform strenuous exercises or activities avoid sun exposure . The patient and her was given to the instructions to go to the emergency room on Friday05/11/2023 for a 2nd methotrexate dose of 120 mg IM and a follow up with hCG day 4 and 7 and follow with an appointment day 7. Signs and symptoms of ruptured ectopic discussed with the patient and her , she is to call or go to the ER if abdominal pain occurs, heavy vaginal bleeding, fever above 100.4, nausea or vomiting. All questions were answered , the patient verbalized understanding. Time Spent With Patient Time: Total time managing care of this patient today ____ minutes.
--- NOTE | 2023-05-08 17:29 | PC.NURSE ---
Spoke with ED electric repair supervisor Jesse Carrillo. She is aware pt will be coming in for 2nd dose methotrexate and lab work on Friday morning around 0800. Written instructions to contact Dr Braun left with battery recharger. Jesse will not be working this Friday, so plan is to stil call ED before 0800 so that preparations can be made.
== END 2023-05-08 16:45 | disposition home or self-care (01) ==
PROVIDERS: Visit Provider Obstetrics & Gynecology
PROC: (CPT 58120; principal; 2023-05-08 10:30)
DX: O26.90 Pregnancy related conditions, unspecified, unspecified trimester (principal)
CPT/HCPCS: 58120; 36415; 76815; 82565; 84450; 84460; 85027; 86850; 86900; 86901; J9250

== ENCOUNTER → 2023-05-08 10:21 | Outpatient (BNV) | payer OTHER, SELFPAY | PROVIDERS: Visit Provider Obstetrics & Gynecology | DX: O02.1 Missed abortion (principal) | CPT/HCPCS: 59820; 99499 ==

== ENCOUNTER 2023-05-11 08:37 | Emergency (ER) | payer OTHER, SELFPAY ==
--- NOTE | ~2023-05-11 | US_ITS ---
EXAMINATION: US OBSTETRICAL ULTRASOUND CLINICAL INFORMATION: COMPARISON: Pelvic ultrasound 05/07/2023. LMP: 03/19/2023. Gestational age by maternal dates is 6 weeks and 4 days. Estimated date of delivery by maternal dates is 12/24/2023. TECHNIQUE: Transabdominal and transvaginal images were obtained with the patient's consent. FINDINGS: Redemonstration of a rounded observation in the left adnexa adjacent to the left ovary with a central anechoic focus surrounded by thickened vieyra with a rim of fire measuring 2.1 x 1.6 x 2.3 cm, previously 2.2 x 1.5 x 1.8 cm highly suggestive of ectopic . An intrauterine gestational sac is not seen. The endometrial measures 0.9 cm in thickness without discrete focal abnormality. The right ovary measures 2.7 x 2.0 x 1.7 cm (4.8 mL previously 4.4 mL). The left ovary measures 4.3 x 2.6 x 2.9 (17 mL previously 22 mL). There is a 2.0 x 1.5 x 1.6 cm corpus luteal cyst in the left ovary, previously measuring 2.1 x 1.6 x 1.8 cm. There are 2 simple appearing cysts adjacent to the left ovary, largest measuring up to 1.1 cm that could represent paraovarian cysts. Small amount of free fluid around the left adnexa, slightly increased since prior. US/US OB pelvic and transvaginal IMPRESSION: A 2.3 cm left adnexal extraovarian round lesion most suggestive of an ectopic is not significantly changed in size compared to the most recent prior. No evidence of intrauterine gestation. Small amount of fluid in the left adnexa is slightly increased. Recommend continued close attention on follow-up with MOTHER SUPERIOR guidance.
[2023-05-11 08:40] VITALS: BP 129/53; PULSE 80; RESP 20; TEMP 37.1; O2SAT 99; BMI 38.8
--- NOTE | 2023-05-11 09:13 | ED.PREGNANCY ---
HPI - General Chief complaint: General Medical Stated complaint: Needs methotrexate dose Time Seen by Provider: 05/11/23 08:50 Source: patient, family, old records reviewed and marketing research intern (kuwaiti azerbaijani voice) Mode of arrival: ambulatory Limitations: no limitations History of Present Illness HPI Narrative: 28 yo female sent from Dr. Braun's office for known L ectopic - 2nd methotrexate shot due 120mg IM confirmed with Dr. Braun and pharmacy. The patinet reports some feeling of movement in abdomen, no vaginal bleeding, and 7/10 abdominal pain but no fainting, dizziness and no pain with walking. She has no pain when you touch her abdomen. Sent in for labs, US and repeat shot after labs and US discussion MD Complaint: other (ectopic ) Onset (ago): week(s) (05/02 first office visit) Pain Consistency: constant Location: pelvis Severity scale (1-10): 7 Quality: Aching Relieving factors: none Exacerbating factors: none Associated symptoms: denies other symptoms Vaginal bleeding: none Related Data Previous Rx's Medication Instructions Recorded acetaminophen 325 mg tablet 650 mg (2 x 325 mg) PO Q6H PRN 09/27/22 (Tylenol) fever or pain #30 tabs ibuprofen 600 mg tablet 600 mg PO Q8H PRN pain #30 tabs 09/27/22 cephalexin 500 mg capsule 500 mg PO Q12H 7 days #14 caps 05/01/23 metronidazole 500 mg tablet 500 mg PO BID 7 days #14 tabs 05/07/23 Allergies Allergy/AdvReac Type Severity Reaction Status Date / Time No Known Allergies Allergy Verified 05/08/23 07:59 Review of Systems Review of Systems: Constitutional : No Fever, No Chills ENT/Mouth : No sore throat, No Rhinorrhea Eyes: No Eye Pain, No Redness Cardiovascular : No Chest Pain, No SOB Respiratory : No Cough, No Sputum, No Wheezing Gastrointestinal : noNausea, No Vomiting, No Diarrhea, no abdominal pain, Genitourinary : no irregular bleeding, No Dysuria, No Urinary Frequency, positive pelvic pain Musculoskeletal : No Myalgias Skin : No rash Neuro : No Weakness, No Headache Psych : No Anxiety/Panic, No Depression Heme/Lymph: No bruising, No Lymphadenopathy Endocrine : No Polyuria, No Polydipsia All other systems reviewed and are negative [facility] Past Medical History Attestation statement: The following information was validated with the patient. Source: old records reviewed Medical History Missed Surgical History Hx of section Social History Social History Household Members: Spouse and Children Housing: House Alcohol intake: never Patient Tobacco Use Status: Never used Tobacco Advance Directives: No Advance Directives Information Provided: No Current occupational status: unemployed Sexual orientation: Straight/Heterosexual Gender identity: Female Physical Exam Vital Signs: Vital Signs: Last Vital Signs Temp 98.7 F 05/11/23 08:40 Pulse 80 05/11/23 08:40 Resp 20 05/11/23 08:40 BP 129/53 L 05/11/23 08:40 Pulse Ox 99 05/11/23 08:40 O2 Del Method Room Air 05/11/23 08:40 BMI result Body Mass Index 38.8 Appearance: Alert. Oriented X3. No acute distress. Eyes: Pupils equal, round and reactive to light. ENT: Pharynx normal. Neck: Normal inspection. Neck supple. CVS: Normal heart rate and rhythm. Pulses normal. Respiratory: No respiratory distress. Breath sounds normal. Abdomen: Soft and nontender. no pain at all to palpation no pain with walking Skin: Skin warm and dry. Normal skin color. Normal skin turgor. Extremities: No lower extremity edema. No calf ttp Neuro: Oriented X 3. No motor deficit. No sensory deficit. Medical Decision Making Medical Decision Making [facility] Narrative: 28 yo female here with pelvic pain but benign abdominal exam no dizziness no vaginal bleeding at this time will need CBC, BMP, LFTs and quant along with US will keep Dr. Braun involved and keep her NPO and hold methotrexate. Differential Diagnosis Differential Diagnoses: The differential diagnosis associated with the presentation includes ectopic Admission/Observation Consideration of admission/observation: Escalation of care including admission/observation considered okay to follow up as outpatient per OBGYN Consult Healthcare Provider Management of the patient was discussed with: Emergency Department Technician (Dr. Braun) To come back with heavy bleeding, abdominal pain, nausea/ vomiting and follow up in the office on Friday with another hcg leve Lab Data [facility] Lab Attestation statement: I reviewed the patient's lab results. 05/11/23 09:20 05/11/23 09:20 Labs: Lab Results 05/11/23 Range/Units 09:20 WBC 7.1 (4.8-10.8) X10*3/uL RBC 4.62 (4.20-5.50) X10*6/uL Hgb 11.9 L (12.0-16.0) g/dl Hct 37.7 (37.0-47.0) % MCV 81.6 (80.0-98.0) fL MCH 25.8 L (27.0-33.0) pg MCHC 31.6 (31.0-35.0) g/dl RDW 13.0 (11.0-16.0) % Plt Count 245 (160-400) X10*3/uL MPV 10.0 (9.4-12.3) fL Immature Gran % (Auto) 0.3 (0.0-0.4) % Neut % (Auto) 62.5 (45-73) % Lymph % (Auto) 29.2 (20-40) % Wirt % (Auto) 4.0 (2-11) % Eos % (Auto) 3.3 (0-4) % Baso % (Auto) 0.7 (0-2) % Lymph # (Auto) 2.1 (1.2-4.9) X10*3/uL Wirt # (Auto) 0.3 (0.1-1.2) X10*3/uL Eos # (Auto) 0.2 (0.0-0.4) X10*3/uL Baso # (Auto) 0.1 (0.0-0.2) X10*3/uL Abs Immat Gran (auto) 0.02 (0.00-0.03) X10*3/uL Absolute Neuts (auto) 4.4 (2.0-8.3) x10*3/uL Absolute Nucleated RBC 0.000 (0.0-0.012) X10*3/uL Nucleated RBC % (auto) 0.0 (0.0-0.2) /100WBC Sodium 135 (135-145) mmol/L Potassium 4.0 (3.3-5.1) mmol/L Chloride 108 (96-108) mmol/L Carbon Dioxide 20 L (22-29) mmol/L Anion Gap 11 L (12-20) BUN 8 L (9-16) mg/dL Creatinine 0.82 (0.5-1.4) mg/dL Estim Creat Clear Calc 140.9 Estimated GFR > 60 Random Glucose 100 (60-115) mg/dL Calcium 9.1 D (8.4-10.2) mg/dL Total Bilirubin 0.5 (0.0-1.0) mg/dL Direct Bilirubin 0.2 (0.0-0.5) mg/dL AST 28 (5-31) U/L ALT 37 H (0-31) U/L Alkaline Phosphatase 56 (39-117) U/L Total Protein 6.7 (6.5-8.0) g/dL Albumin 3.7 (3.5-5.0) g/dL Beta HCG, Quant 6779 mIU/mL Independent Interpretation I performed an independent interpretation of an: Ultrasound (no sig change) Radiology Impression Discussion of test interpretation with radiology: I have reviewed the radiologist's reading. Independent Historian Clinical information obtained from an independent historian. History obtained from or confirmed by: Spouse External Record Review External record reviewed: Office record Discharge Plan Discharge Clinical Impression: Ectopic Qualifiers: Location of ectopic : unspecified location Intrauterine status: without intrauterine Qualified Code(s): O00.90 - Unspecified ectopic without intrauterine Patient Disposition: Home, Self-Care Instructions: Ectopic (DC), Methotrexate (By injection) Additional Instructions: To come back with heavy bleeding, abdominal pain, nausea/ vomiting and follow up in the office on Friday with another hcg level baljit Waite? tyler hernandez? plen / vomisman ted Gibson?kourtney ted nunez?t nivo hcg Prescriptions: No Action cephalexin 500 mg capsule 500 mg PO Q12H 7 Days Qty: 14 0RF ibuprofen 600 mg tablet 600 mg PO Q8H PRN (Reason: pain) Qty: 30 0RF acetaminophen [Tylenol] 325 mg tablet 650 mg PO Q6H PRN (Reason: fever or pain) Qty: 30 0RF metronidazole 500 mg tablet 500 mg PO BID 7 Days Qty: 14 0RF Referrals: Gorge Braun MD [Physician] - (05/14)
[2023-05-11 09:24] LABS: MANUAL DIFF FLAG NO
[2023-05-11 09:30] LABS: Basophils Absolute Auto 0.1 X10*3/uL (0.0-0.2); Basophils Percent Auto 0.7 % (0-2); Eosinophils Absolute Auto 0.2 X10*3/uL (0.0-0.4); Eosinophils Percent Auto 3.3 % (0-4); Hematocrit 37.7 % (37.0-47.0); Hemoglobin 11.9 g/dl (12.0-16.0); Imm Gran Abs Auto 0.02 X10*3/uL (0.00-0.03); Imm Gran Pct Auto 0.3 % (0.0-0.4); Lymphocytes Absolute Auto 2.1 X10*3/uL (1.2-4.9); Lymphocytes Percent Auto 29.2 % (20-40); Mean Corpuscular HGB Conc 31.6 g/dl (31.0-35.0); Mean Corpuscular Hemoglobin 25.8 pg (27.0-33.0); Mean Corpuscular Volume 81.6 fL (80.0-98.0); Monocytes Absolute Auto 0.3 X10*3/uL (0.1-1.2); Neutrophils Absolute Auto 4.4 x10*3/uL (2.0-8.3); Neutrophils Percent Auto 62.5 % (45-73); Platelet Count 245 X10*3/uL (160-400); Red Blood Count 4.62 X10*6/uL (4.20-5.50); White Blood Count 7.1 X10*3/uL (4.8-10.8)
[2023-05-11 09:50] LABS: Alanine Aminotransferase 37 U/L (0-31); Albumin Level 3.7 g/dL (3.5-5.0); Alkaline Phosphatase 56 U/L (39-117); Anion Gap 11 (12-20); Aspartate Amino Transferase 28 U/L (5-31); Bilirubin Direct 0.2 mg/dL (0.0-0.5); Bilirubin Total 0.5 mg/dL (0.0-1.0); Blood Urea Nitrogen 8 mg/dL (9-16); Calcium 9.1 mg/dL (8.4-10.2); Carbon Dioxide 20 mmol/L (22-29); Chloride 108 mmol/L (96-108); Creatinine Clr Calc Pharmacy 140.9; Estimated Glomerular Filt Rate > 60; Glucose Random 100 mg/dL (60-115); Sodium 135 mmol/L (135-145); Total Protein 6.7 g/dL (6.5-8.0)
[2023-05-11 09:51] LABS: HCG Quantitative 6779 mIU/mL
--- NOTE | 2023-05-11 10:00 | PC.NURSE ---
holding methotrexate per md arias at this time. maintaining npo. no resp distress. abdominal pain but no tenderness on palp at bedside with md arias. winding lathe operator gavin winn used.
--- NOTE | 2023-05-11 10:37 | PM.GYNCN ---
LITERATURE TEACHER - CN: HPI Data of Consult Consult date: 05/11/23 Primary Care Provider: Unknown Physician Consult Narrative Narrative: I was consulted on Antwan Vincent is a 28 year old female with the diagnosis L ectopic presenting for 2nd day for methotrexate dose and day 4 hCG level. The patient is reporting abdominal pain , no vaginal bleeding, no nausea or vomiting. HCG today 6779, Rh positive cc:: CC: OB [facility] Past Medical History Medical History Missed Surgical History Surgical History Hx of section Social History Social History Household Members: Spouse and Children Housing: House Alcohol intake: never Patient Tobacco Use Status: Never used Tobacco Advance Directives: No Advance Directives Information Provided: No Current occupational status: unemployed Sexual orientation: Straight/Heterosexual Gender identity: Female Meds Allergies Allergy/AdvReac Type Severity Reaction Status Date / Time No Known Allergies Allergy Verified 05/08/23 07:59 LITERATURE TEACHER Physical Exam Vitals Vital signs: Temp Pulse Resp BP Pulse Ox O2 Del Method 98.7 F 80 20 129/53 L 99 Room Air 05/11/23 08:40 05/11/23 08:40 05/11/23 08:40 05/11/23 08:40 05/11/23 08:40 05/11/23 08:40 BMI result Body Mass Index 38.8 Additional Comments: Physical exam reported by Dr. Painting as the following: Stable vital sign Abdominal exam benign nontender LITERATURE TEACHER - Results Labs 05/11/23 09:20 05/11/23 09:20 Labs: Short CBC 05/11/23 Range/Units 09:20 WBC 7.1 (4.8-10.8) X10*3/uL Hgb 11.9 L (12.0-16.0) g/dl Hct 37.7 (37.0-47.0) % Plt Count 245 (160-400) X10*3/uL BMP 05/11/23 09:20 Sodium 135 Potassium 4.0 Chloride 108 Carbon Dioxide 20 L BUN 8 L Creatinine 0.82 Calcium 9.1 D Liver Function 05/11/23 Range/Units 09:20 Total Bilirubin 0.5 (0.0-1.0) mg/dL Direct Bilirubin 0.2 (0.0-0.5) mg/dL AST 28 (5-31) U/L ALT 37 H (0-31) U/L Alkaline Phosphatase 56 (39-117) U/L Albumin 3.7 (3.5-5.0) g/dL Imaging US - abdomen: Radiologist's impression: ITS Impressions Pelvic/Transvag US 05/11/23 09:44 IMPRESSION: A 2.3 cm left adnexal extraovarian round lesion most suggestive of an ectopic is not significantly changed in size compared to the most recent prior. No evidence of intrauterine gestation. Small amount of fluid in the left adnexa is slightly increased. Recommend continued close attention on follow-up with INDUSTRIAL ARTS TEACHER guidance. Assessment and Plan (1) Ectopic : Qualifiers: Intrauterine status: without intrauterine Location of ectopic : unspecified location Qualified Code(s): O00.90 - Unspecified ectopic without intrauterine Status: Acute Plan CBC, creatinine, liver function test within jl, , ALT mildly elevated at 37 . Ultrasound no change from few days ago with no evidence of rupture, stable vital signs abdominal exam within normal, recommended to Dr. Painting to proceed with 2nd dose methotrexate 50 mg/ m2, 120 mg IM Instructions to be given to patient to come back to emergency room in case of abdominal pain, nausea and vomiting, vaginal bleeding otherwise follow-up in the office on 05/14 with repeat hCG level I spent a total of 20 minute reviewing the chart, communicating with emergency room provider and documenting the medical record
[2023-05-11 11:03] VITALS: BP 115/71; PULSE 86; RESP 18; TEMP 37.1; O2SAT 100
== END 2023-05-11 11:35 | disposition home or self-care (01) ==
PROVIDERS: Emergency Provider Emergency Medicine
DX: O00.90 Unspecified ectopic pregnancy without intrauterine pregnancy (principal); Z3A.01 Less than 8 weeks gestation of pregnancy; Z79.899 Other long term (current) drug therapy
CPT/HCPCS: 36415; 76801; 76817; 80048; 80076; 84702; 85025; 96372; 99284; J9250

== ENCOUNTER 2023-05-14 08:35 | Outpatient (REF) | payer OTHER, SELFPAY ==
[2023-05-14 09:14] LABS: HCG Quantitative 6708 mIU/mL
[2023-05-14 10:23] LABS: Hematocrit 38.6 % (37.0-47.0); Hemoglobin 12.3 g/dl (12.0-16.0); Mean Corpuscular HGB Conc 31.9 g/dl (31.0-35.0); Mean Corpuscular Hemoglobin 26.1 pg (27.0-33.0); Mean Corpuscular Volume 81.8 fL (80.0-98.0); Platelet Count 298 X10*3/uL (160-400); Red Blood Count 4.72 X10*6/uL (4.20-5.50); Red Cell Distribution Width 12.9 % (11.0-16.0); White Blood Count 6.1 X10*3/uL (4.8-10.8)
[2023-05-14 10:36] LABS: Alanine Aminotransferase 89 U/L (0-31); Estimated Glomerular Filt Rate > 60
[2023-05-14 11:23] LABS: Aspartate Amino Transferase 55 U/L (5-31)
== END 2023-05-14 08:36 | disposition home or self-care (01) ==
LOC: HO.LAB 08:35
PROVIDERS: Visit Provider Obstetrics & Gynecology
DX: O00.90 Unspecified ectopic pregnancy without intrauterine pregnancy (principal); Z79.899 Other long term (current) drug therapy
CPT/HCPCS: 36415; 82565; 84450; 84460; 84702; 85027; 99212

== ENCOUNTER 2023-05-14 08:55 | Outpatient (AMB) | payer OTHER, SELFPAY ==
[2023-05-14 09:08] VITALS: BP 116/64; BMI 38.7
--- NOTE | 2023-05-14 09:08 | MHC.OFFVIS ---
Intake Vital Signs 05/14/23 09:08 Height 5 ft 9 in Weight 262 lb 5.601 oz BMI 38.7 BP 116/64 Intake Visit Reasons: Follow up Control Panel Operator Crude Unit Required: Yes Control Panel Operator Crude Unit Language: French Creisidro Control Panel Operator Crude Unit Name: Olesya [id number] Information Interpreted: non-clinical & clinical Accompanied by: Sister Allergies No Known Allergies Allergy (Verified 05/14/23 09:23) HPI HPI Comments History of Present Illness Details Presenting for follow-up day 7 for today methotrexate dose regimen, the patient received 120 mg of methotrexate on day 1 and day 4, hCG on day 4 was 6779, today's hCG dropped to 6708. The patient has no complaints no abdominal/pelvic pain no vaginal bleeding no nausea or vomiting PFSH Medical History Missed Surgical History Hx of section Social History Household Members: Spouse and Children Housing: House Alcohol intake: never Patient Tobacco Use Status: Never used Tobacco Current occupational status: unemployed Sexual orientation: Straight/Heterosexual Gender identity: Female Physical Exam Vital Signs: Last Vital Signs BP 116/64 05/14/23 09:08 BMI result Body Mass Index 38.7 GI Inspection: Yes normal to inspection Palpation (GI): Soft to palpation and nontender Percussion: Yes normal to percussion Auscultation: normal bowel sounds Rectal Exam - Female: visual inspection normal Assessment & Plan Assessment & Plan (1) Ectopic : Code(s): O00.90 - Unspecified ectopic without intrauterine Qualifiers: Intrauterine status: without intrauterine Location of ectopic : unspecified location Qualified Code(s): O00.90 - Unspecified ectopic without intrauterine Plan: Discussed with the patient the hCG drop is less than 15%, her abdominal exam is benign with no evidence of any pain, tenderness or any other concerns findings. Per 2 day methotrexate dose regimen protocol if hCG decreased is less than 15%, methotrexate will be readministered at 50 milligrams/meter squared IM and will recheck hCG level on day 11 in the emergency room. If the hCG drop is more than 15% between day 7 and 11 will continue monitoring hCG weekly until reaching non levels. If hCG drop is less than 15% on day 11 will re administer another 120 mg dose of methotrexate at 50 milligrams/meter squared and recheck hCG level on day 14 if hCG does not decrease more than 15% after the 4 th methotrexate dose will consider surgical management. Informed the patient that her CBC, platelets, and creatinine repeated our within normal, AST increased from 29-55, ALT has increased to 89 from 37, since only clinically significant hepatitis dysfunction is a contraindication to methotrexate treatment will proceed with methotrexate dose of 50 milligram/m 2= 120 mg IM. Discussed with the patient the common side effects of the medication, including skin rash, sensitivity to the sun, indigestion, nausea, sore mouth were discussed with the patient. Less common side effects (occurring in less than 2% of patients) were also discussed a drop in blood cell counts or temporary elevation in liver enzymes. All questions were answered and at the end the patient signed the methotrexate consent. The patient was instructed not to have intercourse or perform strenuous exercises or activities avoid sun exposure nor to take any vitamins . Instructions given to the patient to go to the emergency room today for methotrexate shot, emergency room provider contacted and informed. In addition instructions given the patient to come back to the emergency room on day 11, on Friday05/18/2023 for another hCG level if hCG drop is less 15% a 4 th methotrexate dose of 120 mg IM will be given and a follow up with hCG day 14 (on 05/21/2023) and follow with an appointment day 14 on 05/21/2023. Signs and symptoms of ruptured ectopic discussed with the patient, she is to call or go to the ER if abdominal pain occurs, heavy vaginal bleeding, fever above 100.4, nausea or vomiting. All questions were answered , the patient verbalized understanding. Orders: Orders Creatinine Today O00.90 - Unspecified ectopic without intrauterine Complete Blood Count no Diff Today O00.90 - Unspecified ectopic without intrauterine Alanine Aminotransferase Today O00.90 - Unspecified ectopic without intrauterine Aspartate Amino Transferase Today O00.90 - Unspecified ectopic without intrauterine Coding Level of Care Code Est Pt Level 3 (91061) Diagnoses Ectopic O00.90 Intrauterine status: without intrauterine Location of ectopic : unspecified location
== END 2023-05-14 14:21 | disposition home or self-care (01) ==
LOC: HO.HWS 08:55
PROVIDERS: Visit Provider Obstetrics & Gynecology
DX: O00.90 Unspecified ectopic pregnancy without intrauterine pregnancy (principal)
CPT/HCPCS: 99213

== ENCOUNTER 2023-05-14 11:34 | Emergency (ER) | payer OTHER, SELFPAY ==
--- NOTE | 2023-05-14 12:16 | ED_ITS ---
HPI - General Adult General Chief complaint: General Medical Stated complaint: ? Injection Time Seen by Provider: 05/14/23 11:52 Source: patient Mode of arrival: ambulatory Limitations: no limitations History of Present Illness HPI narrative: 28 yold with ectopic sent from Dr. Braun office for her third methoxetrate 120mg IM injection. patient states no physical complaints. Related Data Previous Rx's Medication Instructions Recorded acetaminophen 325 mg tablet 650 mg (2 x 325 mg) PO Q6H PRN 09/27/22 (Tylenol) fever or pain #30 tabs ibuprofen 600 mg tablet 600 mg PO Q8H PRN pain #30 tabs 09/27/22 cephalexin 500 mg capsule 500 mg PO Q12H 7 days #14 caps 05/01/23 metronidazole 500 mg tablet 500 mg PO BID 7 days #14 tabs 05/07/23 Allergies Allergy/AdvReac Type Severity Reaction Status Date / Time No Known Allergies Allergy Verified 05/14/23 09:23 Review of Systems Review of Systems: Yes all other systems are reviewed and are negative PMFSH Past Medical History Medical History Missed Surgical History Hx of section Social History Social History Household Members: Spouse and Children Housing: House Alcohol intake: never Patient Tobacco Use Status: Never used Tobacco Current occupational status: unemployed Sexual orientation: Straight/Heterosexual Gender identity: Female Physical Exam ED Vital Signs: Vital Signs - 24 hr 05/14/23 11:52 Temperature 98 F Pulse Rate 79 Respiratory Rate 16 Blood Pressure 119/68 Pulse Oximetry 99 Oxygen Delivery Method Room Air BMI result Body Mass Index 38.1 Discharge Plan Discharge Clinical Impression: Ectopic Patient Disposition: Home, Self-Care Instructions: Ectopic (DC) Additional Instructions: Ou sabrina sandy retounen nan ED dimanch geo repete t?s smith beta HCG. Retounen nan ED imedyatman geo nenp?t doul? kiko [place], haroon hoover vakatarzynan, febl?s, doul? kiko pwatrin, souf kout, oswa nenp?t l?t sent?m kons?nan. You would need to return to the ED on Friday for repeat beta HCG blood test. Return to the ED immediately for any abdominal pain, vaginal bleeding, weakness, chest pain, shortness of breath, or any other concerning symptoms. Prescriptions: No Action cephalexin 500 mg capsule 500 mg PO Q12H 7 Days Qty: 14 0RF ibuprofen 600 mg tablet 600 mg PO Q8H PRN (Reason: pain) Qty: 30 0RF acetaminophen [Tylenol] 325 mg tablet 650 mg PO Q6H PRN (Reason: fever or pain) Qty: 30 0RF metronidazole 500 mg tablet 500 mg PO BID 7 Days Qty: 14 0RF Stand Alone Forms: Work/School Release Print Language: Polish
== END 2023-05-14 12:21 | disposition home or self-care (01) ==
DX: F11.20 Opioid dependence, uncomplicated (principal)

== ENCOUNTER 2023-05-18 16:06 | Emergency (ER) | payer MEDICAID, SELFPAY ==
--- NOTE | ~2023-05-18 | US_ITS ---
EXAMINATION: US OBSTETRICAL ULTRASOUND CLINICAL INFORMATION: No ectopic . Worsening free fluid COMPARISON: Ultrasound OB pelvic and transvaginal 05/03/2023. FINDINGS: There is a anteverted uterus measuring 10.9 x 5.0 x 5.0 cm. No intrauterine gestational sac, pole or yolk sac seen. No heart rate seen either. The right ovary measures 2.1 x 1.5 x 2.0 cm. It appears unremarkable. Previously right ovary measured 2.7 x 2.0 x 1.7 cm. The left ovary measures 2.0 x 2.3 x 2.9 cm and appears unremarkable. Previously it measured 4.3 x 2.6 x 2.9 cm. Again visualized a left adnexal mass measuring 1.9 x 2.2 x 1.7 cm. Previously it measured 2.1 x 1.6 x 1.8 cm. There is moderate peripheral vascularity on color ultrasound. Findings are consistent with left ectopic. There is minimal free fluid in the left adnexa. US/US OB pelvic and transvaginal IMPRESSION: No intrauterine gestational sac. Again visualized a mass in left adnexa suggestive of ectopic with moderate peripheral vascularity. There is minimal free fluid in the left adnexa.
[2023-05-18 16:15] VITALS: BP 123/52; PULSE 78; RESP 18; TEMP 36.7; O2SAT 100; BMI 39.2
--- NOTE | 2023-05-18 16:24 | ED.GENADULT ---
HPI - General Adult General Chief complaint: Recheck/Abnormal Lab/Rx Stated complaint: needs 2nd methotrexate dose per dr. braun Time Seen by Provider: 05/18/23 19:09 Source: patient Mode of arrival: ambulatory Limitations: no limitations History of Present Illness HPI narrative: 28 yold female being treated for ectopic presents to the ED for evaluation for possible another methotrexate dose. patient sent by Dr. Braun of [facility]. Patient denies any abdominal pain, nausea, vomitting, vaginal bleeding, or any other concerning symptoms. Related Data Previous Rx's Medication Instructions Recorded acetaminophen 325 mg tablet 650 mg (2 x 325 mg) PO Q6H PRN 09/27/22 (Tylenol) fever or pain #30 tabs ibuprofen 600 mg tablet 600 mg PO Q8H PRN pain #30 tabs 09/27/22 cephalexin 500 mg capsule 500 mg PO Q12H 7 days #14 caps 05/01/23 metronidazole 500 mg tablet 500 mg PO BID 7 days #14 tabs 05/07/23 Allergies Allergy/AdvReac Type Severity Reaction Status Date / Time No Known Allergies Allergy Verified 05/14/23 09:23 Review of Systems Review of Systems: evaluation for possible methoxetrate Yes all other systems are reviewed and are negative PMFSH Past Medical History Medical History (Updated 05/18/23 @ 19:28 by REBECA Harris) Ectopic Missed Surgical History Hx of section Social History Social History Household Members: Spouse and Children Housing: House Alcohol intake: never Patient Tobacco Use Status: Never used Tobacco Current occupational status: unemployed Sexual orientation: Straight/Heterosexual Gender identity: Female Physical Exam ED Vital Signs: Vital Signs - 24 hr 05/18/23 16:15 Temperature 98.1 F Pulse Rate 78 Respiratory Rate 18 Blood Pressure 123/52 L Pulse Oximetry 100 Oxygen Delivery Method Room Air BMI result Body Mass Index 39.2 Const General: cooperative, healthy appearing, comfortable, no acute distress, well developed, alert and awake Orientation/consciousness: oriented to person, oriented to place, oriented to time and patient oriented x3 HENMT Head: Yes normal to inspection, Yes No palpable skull fracture present, Yes normocephalic and Yes atraumatic Eyes General: appearance normal, both eyes and all related structures Neck Neck: Yes normal visual inspection, Yes full ROM, Yes no lymphadenopathy, Yes no meningeal signs, Yes trachea midline, Yes supple, No anterior neck swelling and No tender Chest Chest palpation & inspection: normal inspection of the chest and normal palpation of entire chest wall Resp Effort & Inspection: normal respiratory effort and able to speak in complete sentences Auscultation: clear to auscultation bilaterally Cardio Jugular venous distension: no JVD Heart sounds: S1 normal heart sound present and S2 normal heart sound present GI Inspection: Yes normal to inspection Palpation (GI): not firm, nontender, no guarding and not rigid General: Yes no CVA tenderness Back/Spine/Pelvis Back: no CVA tenderness and No back tenderness Skin General skin exam: no rashes or lesions noted, elasticity normal and turgor normal Neuro General: oriented to person, oriented to place, oriented to time, patient oriented x3, gait normal, tone normal, moves all extremities, Normal light touch and pain sensation, no meningeal signs and no focal motor deficits Extrem General: Yes normal to inspection and Yes full ROM Psych Appearance: grossly normal, well kempt and not disheveled Course Course Course Narrative: RME: 28-year-old female referred by Dr. Braun be for repeat ultrasound and labs to see if she needs another methoxetrate dose. Medical Decision Making Medical Decision Making [facility] Narrative: 28-year-old female presents to ED for evaluation to see if she needs 3rd dose of Mefoxin citrate. Patient has known ectopic . Beta HCG decreased by 50% ultrasound was done. Ultrasound reading, case, physical exam, and labs were discussed with Dr. Braun who does not recommend another methoxetrate injection. Patient could be discharged and he states follow up at his office. patient was made aware of necessary follow up with Dr. Braun and explained worrisome signs. Differential Diagnosis Differential Diagnoses: The differential diagnosis associated with the presentation includes (ectopic .) Consult Healthcare Provider Management of the patient was discussed with: Assistant Director Of Nursing (Dr. Braun PEDIATRIC CARE COORDINATOR) Lab Data 05/18/23 17:12 05/18/23 17:12 Labs: Lab Results 05/18/23 Range/Units 17:12 WBC 10.2 (4.8-10.8) X10*3/uL RBC 4.41 (4.20-5.50) X10*6/uL Hgb 11.7 L (12.0-16.0) g/dl Hct 36.0 L (37.0-47.0) % MCV 81.6 (80.0-98.0) fL MCH 26.5 L (27.0-33.0) pg MCHC 32.5 (31.0-35.0) g/dl RDW 12.9 (11.0-16.0) % Plt Count 315 (160-400) X10*3/uL MPV 9.4 (9.4-12.3) fL Immature Gran % (Auto) 0.4 (0.0-0.4) % Neut % (Auto) 64.4 (45-73) % Lymph % (Auto) 27.1 (20-40) % Butler % (Auto) 3.9 (2-11) % Eos % (Auto) 4.0 (0-4) % Baso % (Auto) 0.2 (0-2) % Lymph # (Auto) 2.8 (1.2-4.9) X10*3/uL Butler # (Auto) 0.4 (0.1-1.2) X10*3/uL Eos # (Auto) 0.4 (0.0-0.4) X10*3/uL Baso # (Auto) 0.0 (0.0-0.2) X10*3/uL Abs Immat Gran (auto) 0.04 H (0.00-0.03) X10*3/uL Absolute Neuts (auto) 6.6 (2.0-8.3) x10*3/uL Absolute Nucleated RBC 0.000 (0.0-0.012) X10*3/uL Nucleated RBC % (auto) 0.0 (0.0-0.2) /100WBC PT 13.1 (11.1-13.3) SEC INR 1.1 (0.9-1.1) APTT 30.8 (26.0-36.8) SEC Sodium 139 (135-145) mmol/L Potassium 4.0 (3.3-5.1) mmol/L Chloride 108 (96-108) mmol/L Carbon Dioxide 23 (22-29) mmol/L Anion Gap 12 (12-20) BUN 8 L (9-16) mg/dL Creatinine 0.86 (0.5-1.4) mg/dL Estim Creat Clear Calc 131.0 Estimated GFR > 60 Random Glucose 90 (60-115) mg/dL Calcium 9.7 D (8.4-10.2) mg/dL Total Bilirubin 0.3 (0.0-1.0) mg/dL AST 33 H (5-31) U/L ALT 82 H (0-31) U/L Alkaline Phosphatase 71 (39-117) U/L Total Protein 7.5 (6.5-8.0) g/dL Albumin 4.0 (3.5-5.0) g/dL Beta HCG, Quant 3712 mIU/mL Independent Interpretation I performed an independent interpretation of an: Ultrasound Radiology Impression Discussion of test interpretation with radiology: I have reviewed the radiologist's reading. Discharge Plan Discharge Clinical Impression: Ectopic Patient Disposition: Home, Self-Care Instructions: Ectopic (DC) Additional Instructions: Retounen [facility] imedyatminessa geo nenp?t doul? kiko vant, senyenicole rodriguez, ekouldelilah rodriguez, febl?s, oswa nenp?t l?t sent?m kons?nan. Guerita hoover [facility] [place] Return to the ED immediately for any abdominal pain, vaginal bleeding, vaginal discharge, weakness, or any other concerning symptoms. Please keep your appointment with Dr. Braun of [facility] this Friday. Prescriptions: No Action cephalexin 500 mg capsule 500 mg PO Q12H 7 Days Qty: 14 0RF ibuprofen 600 mg tablet 600 mg PO Q8H PRN (Reason: pain) Qty: 30 0RF acetaminophen [Tylenol] 325 mg tablet 650 mg PO Q6H PRN (Reason: fever or pain) Qty: 30 0RF metronidazole 500 mg tablet 500 mg PO BID 7 Days Qty: 14 0RF Referrals: Gorge Braun MD [Physician] - (ectopic ) Interventions: ED Discharge Assessment Last Done: 05/18/23 19:42 Discharge Date/Time: 05/18/23 19:30 Print Language: Ugandan
[2023-05-18 17:17] LABS: MANUAL DIFF FLAG NO
[2023-05-18 17:19] LABS: Basophils Percent Auto 0.2 % (0-2); Eosinophils Absolute Auto 0.4 X10*3/uL (0.0-0.4); Hemoglobin 11.7 g/dl (12.0-16.0); Imm Gran Abs Auto 0.04 X10*3/uL (0.00-0.03); Imm Gran Pct Auto 0.4 % (0.0-0.4); Lymphocytes Absolute Auto 2.8 X10*3/uL (1.2-4.9); Lymphocytes Percent Auto 27.1 % (20-40); Mean Corpuscular HGB Conc 32.5 g/dl (31.0-35.0); Mean Corpuscular Hemoglobin 26.5 pg (27.0-33.0); Mean Corpuscular Volume 81.6 fL (80.0-98.0); Mean Platelet Volume 9.4 fL (9.4-12.3); Monocytes Absolute Auto 0.4 X10*3/uL (0.1-1.2); Monocytes Percent Auto 3.9 % (2-11); Neutrophils Absolute Auto 6.6 x10*3/uL (2.0-8.3); Neutrophils Percent Auto 64.4 % (45-73); Platelet Count 315 X10*3/uL (160-400); Red Blood Count 4.41 X10*6/uL (4.20-5.50); Red Cell Distribution Width 12.9 % (11.0-16.0); White Blood Count 10.2 X10*3/uL (4.8-10.8)
[2023-05-18 17:27] LABS: INTERNATIONAL NORM RATIO 1.1 (0.9-1.1); Prothrombin Time 13.1 SEC (11.1-13.3)
[2023-05-18 17:29] LABS: Partial Thromboplastin Time 30.8 SEC (26.0-36.8)
[2023-05-18 17:41] LABS: Alanine Aminotransferase 82 U/L (0-31); Alkaline Phosphatase 71 U/L (39-117); Anion Gap 12 (12-20); Aspartate Amino Transferase 33 U/L (5-31); Bilirubin Total 0.3 mg/dL (0.0-1.0); Blood Urea Nitrogen 8 mg/dL (9-16); Calcium 9.7 mg/dL (8.4-10.2); Carbon Dioxide 23 mmol/L (22-29); Chloride 108 mmol/L (96-108); Estimated Glomerular Filt Rate > 60; Glucose Random 90 mg/dL (60-115); HCG Quantitative 3712 mIU/mL; Sodium 139 mmol/L (135-145); Total Protein 7.5 g/dL (6.5-8.0)
--- NOTE | 2023-05-18 17:59 | P.CONOB_ITS ---
AUTOMATIC DOOR MECHANIC - CN: HPI Data of Consult Consult date: 05/18/23 Primary Care Provider: Unknown Physician Consult Narrative Narrative: Antwan Vincent is a 28 year old female with the diagnosis of left ectopic tubal presenting to emergency room for day 11 hCG level . The patient received initially the 2 dose methotrexate on day 1 and day 4, day 7 hCG did not drop 15% therefore a 3rd dose of methotrexate was given on 05/14, 120 mg IM . The patient is doing well with no complaints, no pelvic pain and or vaginal bleeding , day 7 hCG was 6708 , hCG today, day 14, dropped to 3712, more than 15% compared to day 11 cc:: CC: OB [facility] Past Medical History Medical History (Updated 05/18/23 @ 18:07 by Gorge Braun MD) Ectopic Missed Surgical History Surgical History Hx of section Social History Social History Household Members: Spouse and Children Housing: House Alcohol intake: never Patient Tobacco Use Status: Never used Tobacco Advance Directives: No Advance Directives Information Provided: No Current occupational status: unemployed Sexual orientation: Straight/Heterosexual Gender identity: Female Meds Allergies Allergy/AdvReac Type Severity Reaction Status Date / Time No Known Allergies Allergy Verified 05/14/23 09:23 AUTOMATIC DOOR MECHANIC Physical Exam Vitals Vital signs: Temp Pulse Resp BP Pulse Ox O2 Del Method 98.1 F 78 18 123/52 L 100 Room Air 05/18/23 16:15 05/18/23 16:15 05/18/23 16:15 05/18/23 16:15 05/18/23 16:15 05/18/23 16:15 BMI result Body Mass Index 39.2 Additional Comments: Reported by REBECA Tinoco as the following: Abdominal exam soft, nontender, no rebound and no guarding AUTOMATIC DOOR MECHANIC - Results Labs 05/18/23 17:12 05/18/23 17:12 Labs: Short CBC 05/18/23 Range/Units 17:12 WBC 10.2 (4.8-10.8) X10*3/uL Hgb 11.7 L (12.0-16.0) g/dl Hct 36.0 L (37.0-47.0) % Plt Count 315 (160-400) X10*3/uL BMP 05/18/23 17:12 Sodium 139 Potassium 4.0 Chloride 108 Carbon Dioxide 23 BUN 8 L Creatinine 0.86 Calcium 9.7 D Liver Function 05/18/23 Range/Units 17:12 Total Bilirubin 0.3 (0.0-1.0) mg/dL AST 33 H (5-31) U/L ALT 82 H (0-31) U/L Alkaline Phosphatase 71 (39-117) U/L Albumin 4.0 (3.5-5.0) g/dL Assessment and Plan (1) Ectopic : Qualifiers: Intrauterine status: without intrauterine Location of ectopic : unspecified location Qualified Code(s): O00.90 - Unspecified ectopic without intrauterine Status: Acute Recommended to REBECA Tinoco in the emergency room the following: Since hCG dropped more than 15% from day 11-14, recommended follow-up in the office with an few days with weekly repeat hCG to follow it down to non levels. Instructions to be given to patient to call or come to emergency room in case of abdominal pain and or vaginal bleeding I spent a total of 20 minutes reviewing the chart, communicating with the emergency room provider and documenting in the medicalrecord
== END 2023-05-18 19:30 | disposition home or self-care (01) ==
PROVIDERS: Physician Assistant; Emergency Provider Internal Medicine
DX: O00.90 Unspecified ectopic pregnancy without intrauterine pregnancy (principal); Z79.899 Other long term (current) drug therapy
CPT/HCPCS: 36415; 76801; 76817; 80053; 84702; 85025; 85610; 85730; 99282; 99284

== ENCOUNTER 2023-05-21 08:50 | Outpatient (REF) | payer MEDICAID, SELFPAY ==
[2023-05-21 09:35] LABS: HCG Quantitative 2340 mIU/mL
[2023-05-21 10:41] LABS: Alanine Aminotransferase 38 U/L (0-31); Aspartate Amino Transferase 17 U/L (5-31)
== END 2023-05-21 08:51 | disposition home or self-care (01) ==
LOC: HO.LAB 08:50
PROVIDERS: Visit Provider Obstetrics & Gynecology
DX: O00.90 Unspecified ectopic pregnancy without intrauterine pregnancy (principal); Z30.09 Encounter for other general counseling and advice on contraception
CPT/HCPCS: 36415; 84450; 84460; 84702; 99212

== ENCOUNTER 2023-05-21 09:09 | Outpatient (AMB) | payer MEDICAID, SELFPAY ==
--- NOTE | 2023-05-21 09:42 | MHC.OFFVIS ---
Intake Vital Signs 05/21/23 09:49 Height 5 ft 9 in Weight 257 lb 15.053 oz BMI 38.1 BP 116/70 Intake Visit Reasons: Follow up HCG Field Insurance Sales Manager Required: Yes Field Insurance Sales Manager Language: Melvina Mak Field Insurance Sales Manager Name: Jessica [id number] Information Interpreted: non-clinical & clinical Accompanied by: Sister Allergies No Known Allergies Allergy (Verified 05/21/23 09:52) HPI HPI Comments History of Present Illness Details The patient is presenting for hCG follow-up status post 3 dose of methotrexate preop day 14 hCG dropped to 3712 from 6708 . The patient is doing well with no complaints no pelvic/abdominal pain no vaginal bleeding. HCG today dropped 2340. The patient had mild AST/ALT elevation, were 55/18 9 respectively on 05/14 dropped to 33/82 on 05/18. AST/ALT done today are still pending [facility] Medical History Ectopic Missed Surgical History Hx of section Social History Household Members: Spouse and Children Housing: House Alcohol intake: never Patient Tobacco Use Status: Never used Tobacco Current occupational status: unemployed Sexual orientation: Straight/Heterosexual Gender identity: Female Review of Systems Const All systems reviewed & are unremarkable except as noted in HPI and below Reports as per HPI and Reports no additional complaints GI Reports no additional complaints Reports no additional complaints Physical Exam Vital Signs: Last Vital Signs BP 116/70 05/21/23 09:49 BMI result Body Mass Index 38.1 GI Palpation (GI): Soft to palpation and nontender Assessment & Plan Assessment & Plan (1) Ectopic : Code(s): O00.90 - Unspecified ectopic without intrauterine Qualifiers: Intrauterine status: without intrauterine Location of ectopic : unspecified location Qualified Code(s): O00.90 - Unspecified ectopic without intrauterine Plan: Discussed with the patient the results of hCG more than 15% drop from day 11 to day 14 and dropped further from day 14 to today. Repeat hCG weekly and follow it to non level periods instructions given the patient to call or go to the emergency room in case of abdominal pain and/or vaginal bleeding. Instructions given the patient to schedule a 1 week hCG follow-up appointment. Discussed with the patient that Methotrexate is cleared from the serum before the 4 to12 weeks necessary for the resolution of the ectopic gestation and ovulation in the next cycle . However, there are reports of methotrexate detectable in liver cells 116 days past exposure . Limited evidence suggests that the frequency of congenital anomalies or early loss is not elevated in women who have become shortly after methotrexate exposure . However, perhaps based on the timing of methotrexate clearance from the body, some experts continue to recommend that women delay for at least 4 months after the last dose of methotrexate. In addition, d/w patient the recurrence rate of ectopic . instrcutions given to the patient to call next preagagxy christi in order to r/o recurrene ectopic pregnncy All questions answered, the patient verbalized understanding. (2) Family planning: Code(s): Z30.09 - Encounter for other general counseling and advice on contraception Plan: Discussed with the patient the different options of control including control pills/Nuvaring, Depo Medroxy Progesterone Acetate, IUD ( levonorgestrel, Copper), sterilization. All the pros, cons, risks and benefits of each were discussed with the patient. The patient decided to go ahead with [facility] so a more detailed discussion re: control pills including mechanism of action, benefits (regular menses, less dysmenorrhea, less risk of ovarian cancer, ...), risks ( DVT, PE, Strokes, IN, increased breast ca, others). Instructions were given to use a back- up method for contraception x 1st 2 weeks, and to schedule a 4 months appointment for blood pressure check Orders: Orders HCG Quantitative 1 Week O00.90 - Unspecified ectopic without intrauterine Aspartate Amino Transferase 1 Week O00.90 - Unspecified ectopic without intrauterine Alanine Aminotransferase Today O00.90 - Unspecified ectopic without intrauterine Aspartate Amino Transferase Today O00.90 - Unspecified ectopic without intrauterine Alanine Aminotransferase 1 Week O00.90 - Unspecified ectopic without intrauterine Medications: New desogestrel-ethinyl estradiol 0.15-0.03 mg (Apri) 1 tab PO DAILY 28 days 28 tabs 4RF Coding Level of Care Code Est Pt Level 3 (35564) Diagnoses Ectopic O00.90 Intrauterine status: without intrauterine Location of ectopic : unspecified location Family planning Z30.09
[2023-05-21 09:49] VITALS: BP 116/70; BMI 38.1
== END 2023-05-21 10:17 | disposition home or self-care (01) ==
LOC: HO.HWS 09:09
PROVIDERS: Visit Provider Obstetrics & Gynecology
DX: O00.90 Unspecified ectopic pregnancy without intrauterine pregnancy (principal); Z30.09 Encounter for other general counseling and advice on contraception
CPT/HCPCS: 99024

== ENCOUNTER 2023-05-28 09:55 | Outpatient (REF) | payer MEDICAID, SELFPAY ==
[2023-05-28 11:13] LABS: Alanine Aminotransferase 33 U/L (0-31); Aspartate Amino Transferase 21 U/L (5-31)
[2023-05-28 11:14] LABS: HCG Quantitative 1060 mIU/mL
== END 2023-05-28 09:56 | disposition home or self-care (01) ==
LOC: HO.LAB 09:55
PROVIDERS: Visit Provider Obstetrics & Gynecology
DX: O00.90 Unspecified ectopic pregnancy without intrauterine pregnancy (principal)
CPT/HCPCS: 36415; 84450; 84460; 84702; 99212

== ENCOUNTER 2023-05-28 10:12 | Outpatient (AMB) | payer MEDICAID, SELFPAY ==
[2023-05-28 10:19] VITALS: BP 116/66; BMI 38.1
--- NOTE | 2023-05-28 10:19 | MHC.OFFVIS ---
Intake Vital Signs 05/28/23 10:19 Height 5 ft 9 in Weight 257 lb 15.053 oz BMI 38.1 BP 116/66 Intake Visit Reasons: HCG/Follow up Academy Education Director Required: Yes Academy Education Director Language: Armenian Creisidro Academy Education Director Name: charlotte [id number] Allergies No Known Allergies Allergy (Verified 05/21/23 09:52) HPI HPI Comments History of Present Illness Details Presenting for hCG follow-up status post multi dose methotrexate regimen for ectopic . HCG dropped to 1060 from 07/02/2039 week ago AST /ALT were 21/33 . The patient is doing well with no complaints, no abdominal pain, no vaginal bleeding. The patient is started on control pills PFSH Medical History Ectopic Missed Surgical History Hx of section Social History Household Members: Spouse and Children Housing: House Alcohol intake: never Patient Tobacco Use Status: Never used Tobacco Current occupational status: unemployed Sexual orientation: Straight/Heterosexual Gender identity: Female Review of Systems Const All systems reviewed & are unremarkable except as noted in HPI and below Reports as per HPI and Reports no additional complaints GI Reports no additional complaints Reports no additional complaints Physical Exam Vital Signs: Last Vital Signs BP 116/66 05/28/23 10:19 BMI result Body Mass Index 38.1 Assessment & Plan Assessment & Plan (1) Ectopic : Code(s): O00.90 - Unspecified ectopic without intrauterine Qualifiers: Intrauterine status: without intrauterine Location of ectopic : unspecified location Qualified Code(s): O00.90 - Unspecified ectopic without intrauterine Plan: HCG weekly and follow-up in 2 weeks. Instructions given to patient to call or go to emergency room in case of abdominal pain or heavy bleeding occurs otherwise follow-up in 2 weeks with an office appointments. All questions answered, the patient verbalized understanding Orders: Orders HCG Quantitative 2 Weeks O00.90 - Unspecified ectopic without intrauterine HCG Quantitative 1 Week O00.90 - Unspecified ectopic without intrauterine Coding Level of Care Code Est Pt Level 3 (92257) Diagnoses Ectopic O00.90 Intrauterine status: without intrauterine Location of ectopic : unspecified location
== END 2023-05-28 11:35 | disposition home or self-care (01) ==
LOC: HO.HWS 10:12
PROVIDERS: Visit Provider Obstetrics & Gynecology
DX: O00.90 Unspecified ectopic pregnancy without intrauterine pregnancy (principal)
CPT/HCPCS: 99024

== ENCOUNTER 2023-07-02 12:41 | Outpatient (REF) | payer MEDICAID, SELFPAY ==
[2023-07-02 13:22] LABS: HCG Quantitative 168 mIU/mL
== END 2023-07-02 12:42 | disposition home or self-care (01) ==
LOC: HO.LAB 12:41
PROVIDERS: Visit Provider Obstetrics & Gynecology
DX: O00.90 Unspecified ectopic pregnancy without intrauterine pregnancy (principal)
CPT/HCPCS: 36415; 84702; 99212

== ENCOUNTER 2023-07-02 13:31 | Outpatient (AMB) | payer MEDICAID, SELFPAY ==
[2023-07-02 13:35] VITALS: BP 108/64; BMI 38.1
--- NOTE | 2023-07-02 13:35 | MHC.OFFVIS ---
Intake Vital Signs 07/02/23 13:35 Height 5 ft 9 in Weight 257 lb 15.053 oz BMI 38.1 BP 108/64 Intake Visit Reasons: HCG Follow up Tax Compliance Agent Required: Yes Tax Compliance Agent Language: Melvina Mak Tax Compliance Agent Name: Lincoln [id number] Information Interpreted: non-clinical & clinical Accompanied by: Self / Same As Patient Allergies No Known Allergies Allergy (Verified 07/02/23 13:35) HPI HPI Comments History of Present Illness Details Presenting for hCG follow-up status post multi dose methotrexate regimen for ectopic . HCG dropped from 1060 on 05/28 down to 168 today, the patient did not have hCG drawn last few weeks. The patient is doing well with no complaints, no abdominal pain, no vaginal bleeding. The patient is taken control pills PFSH Medical History Ectopic Missed Surgical History Hx of section Social History Household Members: Spouse and Children Housing: House Alcohol intake: never Patient Tobacco Use Status: Never used Tobacco Current occupational status: unemployed Sexual orientation: Straight/Heterosexual Gender identity: Female Review of Systems Const All systems reviewed & are unremarkable except as noted in HPI and below Reports as per HPI and Reports no additional complaints GI Reports no additional complaints Reports no additional complaints Physical Exam Vital Signs: Last Vital Signs BP 108/64 07/02/23 13:35 BMI result Body Mass Index 38.1 Assessment & Plan Assessment & Plan (1) Ectopic : Code(s): O00.90 - Unspecified ectopic without intrauterine Qualifiers: Intrauterine status: without intrauterine Location of ectopic : unspecified location Qualified Code(s): O00.90 - Unspecified ectopic without intrauterine Plan: HCG q.week till it goes down to 0, instructions given the patient to call in case of heavy vaginal bleeding abdominal pain and to stay on control pills and to schedule a follow-up appointment in 2 weeks. All questions answered, the patient verbalized understanding Orders: Orders HCG Quantitative 2 Weeks O00.90 - Unspecified ectopic without intrauterine HCG Quantitative 1 Week O00.90 - Unspecified ectopic without intrauterine Coding Level of Care Code Est Pt Level 3 (18448) Diagnoses Ectopic O00.90 Intrauterine status: without intrauterine Location of ectopic : unspecified location
== END 2023-07-02 14:37 | disposition home or self-care (01) ==
LOC: HO.HWS 13:31
PROVIDERS: Visit Provider Obstetrics & Gynecology
DX: O00.90 Unspecified ectopic pregnancy without intrauterine pregnancy (principal)
CPT/HCPCS: 99024

== ENCOUNTER 2023-07-16 12:44 | Outpatient (REF) | payer MEDICAID, SELFPAY ==
[2023-07-16 14:05] LABS: HCG Quantitative 104 mIU/mL
== END 2023-07-16 12:45 | disposition home or self-care (01) ==
LOC: HO.LAB 12:44
PROVIDERS: Visit Provider Obstetrics & Gynecology
DX: O00.90 Unspecified ectopic pregnancy without intrauterine pregnancy (principal)
CPT/HCPCS: 36415; 84702; 99212

== ENCOUNTER 2023-07-16 13:03 | Outpatient (AMB) | payer MEDICAID, SELFPAY ==
--- NOTE | 2023-07-16 14:07 | MHC.OFFVIS ---
Intake Vital Signs 07/16/23 14:10 Height 5 ft 9 in Weight 257 lb 15.053 oz BMI 38.1 BP 110/74 Intake Visit Reasons: 2 week follow up Technician Plant And Maintenance Required: Yes Technician Plant And Maintenance Language: Melvina Mak Technician Plant And Maintenance Name: Jaciel #[id number] Information Interpreted: non-clinical & clinical Accompanied by: Self / Same As Patient Allergies No Known Allergies Allergy (Verified 07/16/23 14:11) HPI HPI Comments History of Present Illness Details Presenting for hCG follow-up for ectopic status post methotrexate treatment. HCG done today was down to 104 from 168 on 07/01. The patient is doing well with no complaints, no pelvic pain or vaginal bleeding. On control pills PFSH Medical History Ectopic Missed Surgical History Hx of section Social History Household Members: Spouse and Children Housing: House Alcohol intake: never Patient Tobacco Use Status: Never used Tobacco Current occupational status: unemployed Sexual orientation: Straight/Heterosexual Gender identity: Female Review of Systems Const All systems reviewed & are unremarkable except as noted in HPI and below Reports as per HPI and Reports no additional complaints GI Reports no additional complaints Reports no additional complaints Assessment & Plan Assessment & Plan (1) Ectopic : Code(s): O00.90 - Unspecified ectopic without intrauterine Qualifiers: Intrauterine status: without intrauterine Location of ectopic : unspecified location Qualified Code(s): O00.90 - Unspecified ectopic without intrauterine Plan: Discussed with the patient the results of the hCG, will repeat hCG in 2 weeks and follow it down to non level. Instructions given to patient to call in case of heavy vaginal bleeding or pelvic pain otherwise schedule a follow-up appointment in 2 weeks. All questions answered, the patient verbalized understanding Orders: Orders HCG Quantitative 2 Weeks O00.90 - Unspecified ectopic without intrauterine Coding Level of Care Code Est Pt Level 3 (25334) Diagnoses Ectopic O00.90 Intrauterine status: without intrauterine Location of ectopic : unspecified location
[2023-07-16 14:10] VITALS: BP 110/74; BMI 38.1
== END 2023-07-16 14:22 | disposition home or self-care (01) ==
LOC: HO.HWS 13:03
PROVIDERS: Visit Provider Obstetrics & Gynecology
DX: O00.90 Unspecified ectopic pregnancy without intrauterine pregnancy (principal)
CPT/HCPCS: 99024

== ENCOUNTER 2023-08-13 10:08 | Outpatient (REF) | payer MEDICAID, SELFPAY ==
[2023-08-13 11:09] LABS: HCG Quantitative 44 mIU/mL
== END 2023-08-13 10:09 | disposition home or self-care (01) ==
LOC: HO.LAB 10:08
PROVIDERS: PCP Obstetrics & Gynecology; Visit Provider Obstetrics & Gynecology
DX: O00.90 Unspecified ectopic pregnancy without intrauterine pregnancy (principal)
CPT/HCPCS: 36415; 84702

== ENCOUNTER 2023-08-27 15:56 | Outpatient (REF) | payer MEDICAID, SELFPAY ==
[2023-08-27 18:31] LABS: HCG Quantitative 95 mIU/mL
== END 2023-08-27 15:57 | disposition home or self-care (01) ==
LOC: HO.LAB 15:56
PROVIDERS: PCP Obstetrics & Gynecology; Visit Provider Obstetrics & Gynecology
DX: O00.90 Unspecified ectopic pregnancy without intrauterine pregnancy (principal)
CPT/HCPCS: 36415; 84702

== ENCOUNTER 2023-08-28 09:06 | Outpatient (REF) | payer MEDICAID, SELFPAY ==
--- NOTE | ~2023-08-28 | US_ITS ---
EXAMINATION: US OBSTETRICAL ULTRASOUND CLINICAL INFORMATION: Abnormal rising quants, ectopic COMPARISON: 05/18/2023 LMP: Unknown. TECHNIQUE: Ultrasound of the maternal pelvis is performed using transabdominal and transvaginal transducers. Transvaginal imaging is performed due to inadequate visualization transabdominally. M-mode Doppler is also performed. FINDINGS: Normal-appearing uterus is present measuring 9.4 x 3.9 x 4.3 cm. A normal-appearing endometrium measuring 4 mm is seen. There is no fluid in the endometrial cavity and no gestational sac is present within the uterus. The right ovary measures 2.9 x 2.0 x 1.9 cm and appears normal. The left ovary measures 3.3 x 1.6 x 3.1 cm and appears normal. Adjacent to the left ovary, there is a ovoid mass measuring 2.4 x 1.6 x 1.9 cm suggestive of a ectopic with a central cystic area, possibly a gestational sac with a small amount of eccentric tissue within it, possibly a yolk sac. A pole or heartbeat is not seen. Should be noted that a similar appearing masslike area in the left adnexa was seen at the time of the prior 05/18/2023 ultrasound exam Small amount of fluid is present in the cul-de-sac. US/US OB pelvic and transvaginal IMPRESSION: An intrauterine is not seen. There is a left adnexal mass suggestive of an ectopic however a similar appearing mass is seen on the 05/18/2023 study. Continued close clinical and ultrasound follow-up recommended as well as correlation with past history, specifically in May 2023. It is recommended that this patient have a baseline pelvic ultrasound at some point when she is not . This critical result was delivered to Delmi steiner nurse in Dr. Braun's office and it was ascertained that the content and urgency of the report was understood at the time of direct communication. The patient left the ultrasound suite to go directly to Dr. Braun's office.
[2023-08-28 09:51] LABS: HCG Quantitative 92 mIU/mL
== END 2023-08-28 09:07 | disposition home or self-care (01) ==
LOC: HO.US 09:06
PROVIDERS: Visit Provider Obstetrics & Gynecology
DX: O00.90 Unspecified ectopic pregnancy without intrauterine pregnancy (principal)
CPT/HCPCS: 36415; 76801; 76817; 84702; 99212

== ENCOUNTER 2023-08-28 10:24 | Outpatient (AMB) | payer MEDICAID, SELFPAY ==
[2023-08-28 11:32] VITALS: BP 102/60; BMI 37.9
--- NOTE | 2023-08-28 11:32 | A.OFFVIS_ITS ---
Vital Signs 08/28/23 11:32 Height 5 ft 9 in Weight 257 lb BMI 37.9 BP 102/60 Intake Visit Reasons: hcg follow up Advertising Director Required: Yes Advertising Director Language: Melvina Mak Advertising Director Name: Josiah [id number] Allergies No Known Allergies Allergy (Verified 08/28/23 11:32) HPI Comments Details: Presenting for hCG follow-up with no complaints no abdominal pain, no vaginal bleeding or any other concerns. The patient has been on control pills over the last few months and states that she has missed few pills since initiation of the control pills multiple time. The patient was diagnosed with left tubal ectopic on 05/08/23, office EMB followed by suction D&C will done , the pathology showed no evidence of chorionic villi The patient received methotrexate 120 mg IM on day 1 on 05/08 hCG was 5470 On 05/11, day 4, 2nd dose methotrexate 120 mg IM was given hCG was 6779 On 05/14, day 7, 3rd dose of methotrexate was given hCG was 6708 On 05/18/2023, day 11, hCG dropped to 3712 down from 6708 on day 7 on 05/14/2023 HCG was followed afterwards HCG dropped to 1060 on 05/28, the patient did not follow-up weekly with hCG after 07/01 hCG was 168 / hCG 104 08/12 hCG was 44 08/26 hCG was 95 08/27 hCG 92 Ultrasound done today on 08/28/2023 showed the following: Normal-appearing uterus is present measuring 9.4 x 3.9 x 4.3 cm. A normal-appearing endometrium measuring 4 mm is seen. There is no fluid in the endometrial cavity and no gestational sac is present within the uterus. The right ovary measures 2.9 x 2.0 x 1.9 cm and appears normal. The left ovary measures 3.3 x 1.6 x 3.1 cm and appears normal. Adjacent to the left ovary, there is a ovoid mass measuring 2.4 x 1.6 x 1.9 cm suggestive of a ectopic with a central cystic area, possibly a gestational sac with a small amount of eccentric tissue within it, possibly a yolk sac. A pole or heartbeat is not seen. Should be noted that a similar appearing masslike area in the left adnexa was seen at the time of the prior 05/18/2023 ultrasound exam Small amount of fluid is present in the cul-de-sac. Ultrasound done on 05/18/2023 showed the following: There is a anteverted uterus measuring 10.9 x 5.0 x 5.0 cm. No intrauterine gestational sac, pole or yolk sac seen. No heart rate seen either. The right ovary measures 2.1 x 1.5 x 2.0 cm. It appears unremarkable. Previously right ovary measured 2.7 x 2.0 x 1.7 cm. The left ovary measures 2.0 x 2.3 x 2.9 cm and appears unremarkable. Previously it measured 4.3 x 2.6 x 2.9 cm. Again visualized a left adnexal mass measuring 1.9 x 2.2 x 1.7 cm. Previously it measured 2.1 x 1.6 x 1.8 cm. There is moderate peripheral vascularity on color ultrasound. Findings are consistent with left ectopic. There is minimal free fluid in the left adnexa. [facility] Medical History Ectopic Missed Surgical History Hx of section Social History Household Members: Spouse and Children Housing: House Alcohol intake: never Patient Tobacco Use Status: Never used Tobacco Current occupational status: unemployed Sexual orientation: Straight/Heterosexual Gender identity: Female Female Reproductive History Menstrual control method: none Physical Exam Vital Signs: Last Vital Signs BP 102/60 08/28/23 11:32 BMI result Body Mass Index 37.9 GI Inspection: Yes normal to inspection Palpation (GI): Soft to palpation and nontender Assessment & Plan Assessment & Plan (1) Ectopic : Comment: Status post methotrexate 3 doses last 05/14/23 Late rise in hCG levels Code(s): O00.90 - Unspecified ectopic without intrauterine Category: Medical Qualifiers: Intrauterine status: without intrauterine Location of ectopic : unspecified location Qualified Code(s): O00.90 - Unspecified ectopic without intrauterine Plan: Discussed with the patient the results of hCG done yesterday, markos from 44 on 08/13/23 to 95 on 08/26, repeated today HCG= 92 In addition, discussed with the patient the finding on ultrasound showing a left adnexal mass measuring 2.4 x 1.6 x 1.9 cm suspicious of ectopic . Differential diagnosis discussed with the patient includes a new early intrauterine , persistent ectopic or a new ectopic . All questions answered, the patient verbalized understanding especially the urgency of her clinical situation Will refer the patient to [facility] for further management and higher level of care I called [facility] and discussed the case with CNM on-call, Reyna, who accepted the patient. The patient was instructed to go [facility], [facility], the pt's records were faxed to [facility] and I gave a copy of the records to the patient. The pt understands the urgency of the clinical situation and agrees with the plan Coding Level of Care Code Est Pt Level 3 (39025) Diagnoses Ectopic O00.90 Intrauterine status: without intrauterine Location of ectopic : unspecified location
== END 2023-08-28 16:06 | disposition home or self-care (01) ==
PROVIDERS: PCP Obstetrics & Gynecology; Visit Provider Obstetrics & Gynecology
DX: O00.90 Unspecified ectopic pregnancy without intrauterine pregnancy (principal)
CPT/HCPCS: 99213

== ENCOUNTER 2023-11-10 09:59 | Outpatient (REF) | payer MEDICAID, SELFPAY ==
[2023-11-10 10:54] LABS: HCG Quantitative 30 mIU/mL
== END 2023-11-10 10:00 | disposition home or self-care (01) ==
LOC: HO.LAB 09:59
PROVIDERS: Visit Provider Obstetrics & Gynecology
DX: O00.90 Unspecified ectopic pregnancy without intrauterine pregnancy (principal)
CPT/HCPCS: 36415; 84702; 99212

== ENCOUNTER 2023-11-10 10:39 | Outpatient (AMB) | payer MEDICAID, SELFPAY ==
--- NOTE | 2023-11-10 11:14 | A.OFFVIS_ITS ---
Vital Signs 11/10/23 11:15 Height 5 ft 9 in Weight 255 lb 11.779 oz BMI 37.8 Intake Visit Reasons: control follow up Tool Adjuster Required: Yes Tool Adjuster Language: Frenchgianna Mak Tool Adjuster Services: Tool Adjuster Present ([employer] machine) Tool Adjuster Name: Renee # [id number] Information Interpreted: non-clinical & clinical Accompanied by: Daughter Allergies No Known Allergies Allergy (Verified 11/10/23 11:23) HPI Comments Details: The patient is presenting requesting control pills. Was referred to [facility] mid August for persistently elevated hCG after methotrexate treatment, no records are available but apparently the patient received 2 doses of methotrexate and was followed up with serial hCG which showed persistently elevated hCG so was referred to [facility] for further management, the patient has an appointment today with [facility] at 02:20 p.m. hCG done today was 30 no abdominal pain and or bleeding [facility] Medical History (Updated 11/10/23 @ 11:34 by Gorge Braun MD) Ectopic Missed Surgical History Hx of section Social History Household Members: Spouse and Children Housing: House Alcohol intake: never Patient Tobacco Use Status: Never used Tobacco Current occupational status: unemployed Sexual orientation: Straight/Heterosexual Gender identity: Female Review of Systems Const All systems reviewed & are unremarkable except as noted in HPI and below Reports as per HPI and Reports no additional complaints GI Reports no additional complaints Reports no additional complaints Physical Exam GI Palpation (GI): nontender Assessment & Plan Assessment & Plan (1) Ectopic : Comment: Status post methotrexate 3 doses last 05/14/23 Late rise in hCG levels Status post additional 2 methotrexate doses at [facility] and persistent hCG Code(s): O00.90 - Unspecified ectopic without intrauterine Category: Medical Qualifiers: Intrauterine status: without intrauterine Location of ectopic : unspecified location Qualified Code(s): O00.90 - Unspecified ectopic without intrauterine Plan: Discussed with the patient the results of her hCG still persistently elevated at 30 today in spite of multiple dose of methotrexate and additional 2nd round of 2 dose of methotrexate in mid August at [facility] . Recommended the patient to follow up with [facility] as scheduled today for further management, instructions were given to patient to go to emergency room or call in case of abdominal pain and or vaginal bleeding. All questions answered, the patient verbalized understanding Orders: Orders HCG Quantitative Today O00.90 - Unspecified ectopic without intrauterine Coding Level of Care Code Est Pt Level 3 (36261) Diagnoses Ectopic O00.90 Intrauterine status: without intrauterine Location of ectopic : unspecified location
[2023-11-10 11:15] VITALS: BMI 37.8
== END 2023-11-10 12:08 | disposition home or self-care (01) ==
LOC: HO.HWS 10:39
PROVIDERS: PCP Obstetrics & Gynecology; Referring Provider Obstetrics & Gynecology; Visit Provider Obstetrics & Gynecology
DX: O00.90 Unspecified ectopic pregnancy without intrauterine pregnancy (principal)
CPT/HCPCS: 99213

== ENCOUNTER 2024-09-15 11:59 | Day surgery (SDC) | payer MEDICAID, SELFPAY ==
[2024-09-15] VITALS (16 sets, daily range): BP systolic 110–153; BP diastolic 51–95; PULSE 64–90; RESP 13–18; TEMP 36.4–36.9; O2SAT 94–99; BMI 39.0; BMI 37.8
--- NOTE | ~2024-09-15 | US_ITS ---
EXAMINATION: US LESS THAN 14 WEEKS WITH TRANSVAGINAL HISTORY: ectopic rule out, LLQ pain COMPARISON: Comparison is made with the prior examination dated 08/28/2023. TECHNIQUE: Transabdominal and endovaginal real-time 2D wheatley-scale ultrasound was performed. FINDINGS: Uterus: The uterus is normal in size, measuring 7.3 x 4.1 x 5.7 cm. Myometrium has a normal echotexture. No fibroids are identified. Endometrium: The endometrial stripe measures 7 mm in thickness. No IUP is seen. Right ovary: The right ovary measures 2.6 x 1.9 x 1.9 cm. The right ovary is normal in size and echotexture. Left ovary: The left ovary is not identified. There is a heterogeneous mass in the left adnexa measuring 9.7 x 5.9 x 7.1 cm demonstrating internal vascular flow. Findings are highly suspicious for a ruptured ectopic gestation. Pelvic fluid: There is a moderate amount of fluid in the cul-de-sac. US/US OB pelvic and transvaginal IMPRESSION: No IUP is identified. Findings highly suspicious for a ruptured ectopic in the left adnexa as described. These findings were discussed with Dr. Kay in the emergency room on 09/15/2024 at 3:26 PM. Electronically signed by: Orion Booker MD 09/15/2024 03:29 PM EDT
[2024-09-15 13:07] LABS: MANUAL DIFF FLAG NO
[2024-09-15 13:10] LABS: Basophils Percent Auto 0.3 % (0-2); Eosinophils Absolute Auto 0.1 X10*3/uL (0.0-0.4); Hematocrit 35.3 % (37.0-47.0); Hemoglobin 11.5 g/dl (12.0-16.0); Imm Gran Abs Auto 0.03 X10*3/uL (0.00-0.03); Imm Gran Pct Auto 0.4 % (0.0-0.4); Lymphocytes Absolute Auto 1.3 X10*3/uL (1.2-4.9); Lymphocytes Percent Auto 17.1 % (20-40); Mean Corpuscular HGB Conc 32.6 g/dl (31.0-35.0); Mean Corpuscular Hemoglobin 26.8 pg (27.0-33.0); Mean Corpuscular Volume 82.3 fL (80.0-98.0); Mean Platelet Volume 10.2 fL (9.4-12.3); Monocytes Absolute Auto 0.4 X10*3/uL (0.1-1.2); Monocytes Percent Auto 5.1 % (2-11); Neutrophils Percent Auto 76.1 % (45-73); Platelet Count 242 X10*3/uL (160-400); Red Blood Count 4.29 X10*6/uL (4.20-5.50); White Blood Count 7.8 X10*3/uL (4.8-10.8)
[2024-09-15 13:11] LABS: Appearance Urine Turbid; Color Urine Red; Glucose Urine UA Negative (Negative); Leukocyte Esterase Urine Small (1+) (Negative); Nitrite Urine Negative (Negative); Specific Gravity - Urine 1.025 (1.005-1.025); UMIC TRIGGER UACC YES; Urine Blood Large (3+) (Negative); Urine Ketones Negative (Negative); Urine Protein 100 (2+) mg/dL (Neg-Trace)
[2024-09-15 13:13] LABS: Bacteria Urine 2+ (None Seen); RBC Urine >20 /HPF (0-2); Squamous Epithelial Cell Urine >20 /HPF (0-2); UACC Culture Trigger YES
[2024-09-15 13:43] LABS: Alanine Aminotransferase 11 U/L (0-31); Albumin Level 3.7 g/dL (3.5-5.0); Anion Gap 12 (12-20); Aspartate Amino Transferase 33 U/L (5-31); Bilirubin Direct 0.2 mg/dL (0.0-0.5); Bilirubin Total 0.6 mg/dL (0.0-1.0); Blood Urea Nitrogen 9 mg/dL (9-16); Carbon Dioxide 24 mmol/L (22-29); Chloride 107 mmol/L (96-108); Estimated Glomerular Filt Rate > 60; Glucose Random 117 mg/dL (60-115); HCG Quantitative 658 mIU/mL; Lipase 23 U/L (8-78); Magnesium 1.8 mg/dL (1.6-2.6); Potassium 4.1 mmol/L (3.3-5.1); Sodium 139 mmol/L (135-145); Total Protein 6.7 g/dL (6.5-8.0)
[2024-09-15 13:56] LABS: Alkaline Phosphatase 56 U/L (39-117)
--- NOTE | 2024-09-15 14:09 | ED_ITS ---
HPI - Abdominal Pain General Chief Complaint: Abdominal Pain Stated Complaint: Stomach Issues Time Seen by Provider: 09/15/24 14:09 Source: patient and deputy commissioner Mode of arrival: ambulatory Limitations: no limitations History of Present Illness ED Provider: HPI narrative: 29-year-old woman with history of 2 prior ectopics, presenting with left lower quadrant abdominal pain, reported last menstrual period July 26, had some vaginal spotting as well. No fever chills nausea or vomiting or diarrhea reported. She is aware ectopic pregnancies or dangerous and may kill her, she has had them in the past, not interested in control, has kids. Related Data Previous Rx's ?Medication ?Instructions ?Recorded acetaminophen 325 mg tablet 650 mg (2 x 325 mg) PO Q6H PRN 09/27/22 (Tylenol) fever or pain #30 tabs ibuprofen 600 mg tablet 600 mg PO Q8H PRN pain #30 tabs 09/27/22 desogestrel 0.15 mg-ethinyl 1 tab PO DAILY 28 days #28 tabs 08/10/23 estradiol 0.03 mg tablet (Apri) Allergies Allergy/AdvReac Type Severity Reaction Status Date / Time No Known Allergies Allergy Verified 09/15/24 12:14 Review of Systems Constitutional: Reports as per HPI [facility] Past Medical History Medical History (Updated 09/15/24 @ 15:10 by Jorje Kay DO) Ectopic Missed Surgical History Hx of section Social History Social History Household Members: Spouse and Children Housing: House Alcohol intake: never Patient Tobacco Use Status: Never used Tobacco Current occupational status: unemployed Sexual orientation: Straight/Heterosexual Gender identity: Female Physical Exam ED Vital Signs: Vital Signs - 24 hr 09/15/24 12:06 09/15/24 14:56 Temperature 98.4 F 97.7 F Pulse Rate 78 72 Respiratory Rate 16 18 Blood Pressure 137/69 110/51 L Pulse Oximetry 95 99 Oxygen Delivery Method Room Air Room Air BMI result Body Mass Index 39.0 Const Other: * Gen: ?Overall well-appearing patient * CV: RRR, no obvious murmurs appreciated * Resp: ?No wheezing rales rhonchi no stridor moving air well * Abd: ?Bowel sounds are present, left lower quadrant tenderness no rebound no rigidity * : Deferred on the pelvic exam, she is not complaining of ongoing vaginal bleeding did not feel it would contribute to my management of this patient * Neuro: ?Alert and oriented x3, moving upper and lower extremities symmetrically, no obvious facial asymmetry noted Medical Decision Making Medical Decision Making [facility] Narrative: Hemodynamically stable, hCG is positive, ultrasound was ordered, I suspect she has an ectopic , will continue to monitor. 15:00 Just spoke with audio technician she has a large ectopic with concern for rupture,, contacted Dr. Braun right away. alerted RN, will place IV x 2 obtain Type and Screen. 310PM. Dr. Braun at bedside, I made sure patient has IV access x2 getting fluids and type and screen has been obtained Admission/Observation Consideration of admission/observation: Escalation of care including admission/observation considered Lab Data [facility] Lab Attestation statement: I reviewed the patient's lab results. 09/15/24 12:56 09/15/24 12:56 Labs: Lab Results 09/15/24 Range/Units 12:56 WBC 7.8 (4.8-10.8) X10*3/uL RBC 4.29 (4.20-5.50) X10*6/uL Hgb 11.5 L (12.0-16.0) g/dl Hct 35.3 L (37.0-47.0) % MCV 82.3 (80.0-98.0) fL MCH 26.8 L (27.0-33.0) pg MCHC 32.6 (31.0-35.0) g/dl RDW 13.0 (11.0-16.0) % Plt Count 242 (160-400) X10*3/uL MPV 10.2 (9.4-12.3) fL Immature Gran % (Auto) 0.4 (0.0-0.4) % Neut % (Auto) 76.1 H (45-73) % Lymph % (Auto) 17.1 L (20-40) % Sanborn % (Auto) 5.1 (2-11) % Eos % (Auto) 1.0 (0-4) % Baso % (Auto) 0.3 (0-2) % Lymph # (Auto) 1.3 (1.2-4.9) X10*3/uL Sanborn # (Auto) 0.4 (0.1-1.2) X10*3/uL Eos # (Auto) 0.1 (0.0-0.4) X10*3/uL Baso # (Auto) 0.0 (0.0-0.2) X10*3/uL Abs Immat Gran (auto) 0.03 (0.00-0.03) X10*3/uL Absolute Neuts (auto) 6.0 (2.0-8.3) x10*3/uL Absolute Nucleated RBC 0.000 (0.0-0.012) X10*3/uL Nucleated RBC % (auto) 0.0 (0.0-0.2) /100WBC Sodium 139 (135-145) mmol/L Potassium 4.1 (3.3-5.1) mmol/L Chloride 107 (96-108) mmol/L Carbon Dioxide 24 (22-29) mmol/L Anion Gap 12 (12-20) BUN 9 (9-16) mg/dL Creatinine 0.85 (0.5-1.4) mg/dL Estim Creat Clear Calc 135.0 Estimated GFR > 60 Random Glucose 117 H (60-115) mg/dL Calcium 9.0 D (8.4-10.2) mg/dL Magnesium 1.8 (1.6-2.6) mg/dL Total Bilirubin 0.6 (0.0-1.0) mg/dL Direct Bilirubin 0.2 (0.0-0.5) mg/dL AST 33 H (5-31) U/L ALT 11 (0-31) U/L Alkaline Phosphatase 56 (39-117) U/L Total Protein 6.7 (6.5-8.0) g/dL Albumin 3.7 (3.5-5.0) g/dL Lipase 23 (8-78) U/L Beta HCG, Quant 658 mIU/mL Urine Color Red A Urine Appearance Turbid Urine pH 5.0 (5.0-9.0) Ur Specific Hart[place]orne 1.025 (1.005-1.025) Urine Protein 100 (2+) H (Neg-Trace) mg/dL Urine Glucose (UA) Negative (Negative) mg/dL Urine Ketones Negative (Negative) mg/dL Urine Blood Large (3+) H (Negative) Urine Nitrite Negative (Negative) Ur Leukocyte Esterase Small (1+) H (Negative) Urine RBC >20 H (0-2) /HPF Urine WBC 11-20 H (0-5) /HPF Ur Squamous Epith Cells >20 (0-2) /HPF Urine Bacteria 2+ (None Seen) Hyaline Casts 3-5 (0-2) /LPF Critical Care Time Critical Care Time Total Critical Care Time: 60 Attestation: Time is exclusive of separately billable procedures. Time includes: direct patient care, patient reassessment, coordination of patient care, interpretation of data (laboratory data, pulse oximetry, arterial blood gases and chest xrays), review of patient's medical records, medical consultation and documentation of patient care. Procedures excluded from critical care time: central intravenous line placement and electrocardiography. Discharge Plan Discharge Clinical Impression: Ruptured ectopic Patient Disposition: Admitted As Inpatient Prescriptions: No Action desogestrel-ethinyl estradiol [Apri] 0.15-0.03 mg tablet 1 tab PO DAILY 28 Days Qty: 28 4RF ibuprofen 600 mg tablet 600 mg PO Q8H PRN (Reason: pain) Qty: 30 0RF acetaminophen [Tylenol] 325 mg tablet 650 mg PO Q6H PRN (Reason: fever or pain) Qty: 30 0RF Print Language: Niuean Creisidro
--- NOTE | 2024-09-15 15:09 | PM.GYNCN ---
UI UX ENGINEER - CN: HPI Data of Consult Consult date: 09/15/24 Primary Care Provider: Unknown Physician Consult Narrative Narrative: I was consulted on Antwan Vincent who is a 29 year old female 29-year-old woman with history of 2 prior ectopics, presenting with left lower quadrant abdominal pain, reported last menstrual period July 26, had some vaginal spotting as well. No fever chills nausea or vomiting or diarrhea reported. In the emergency room the following workup was done: H&H 11.5/35.3 Blood type B positive Pelvic ultrasound in the ER showed the following: Uterus: The uterus is normal in size, measuring 7.3 x 4.1 x 5.7 cm. Myometrium has a normal echotexture. No fibroids are identified. Endometrium: The endometrial stripe measures 7 mm in thickness. No IUP is seen. Right ovary: The right ovary measures 2.6 x 1.9 x 1.9 cm. The right ovary is normal in size and echotexture. Left ovary: The left ovary is not identified. There is a heterogeneous mass in the left adnexa measuring 9.7 x 5.9 x 7.1 cm demonstrating internal vascular flow. Findings are highly suspicious for a ruptured ectopic gestation. Pelvic fluid: There is a moderate amount of fluid in the cul-de-sac cc:: CC: OB [facility] Past Medical History Medical History (Updated 09/15/24 @ 15:10 by Jorje Kay DO) Ectopic Missed Surgical History Surgical History (Updated 09/15/24 @ 17:19 by Hillary Bass RN) H/O dilation and curettage Hx of section Social History Social History Household Members: Spouse and Children Housing: House Are you a primary care transitions manager to a significant other at home: No Do you presently have visiting nurse or other home services: No Alcohol intake: never Patient Tobacco Use Status: Never used Tobacco Current occupational status: unemployed Sexual orientation: Straight/Heterosexual Gender identity: Female Meds Allergies Allergy/AdvReac Type Severity Reaction Status Date / Time No Known Allergies Allergy Verified 09/15/24 16:20 UI UX ENGINEER Physical Exam Vitals Vital signs: Temp Pulse Resp BP Pulse Ox O2 Del Method 97.7 F 72 18 110/51 L 99 Room Air 09/15/24 14:56 09/15/24 14:56 09/15/24 14:56 09/15/24 14:56 09/15/24 14:56 09/15/24 14:56 BMI result Body Mass Index 39.0 Abdomen Auscultation/Inspection/Palpation: Tenderness (Left lower quadrant), Guarding and Rebound tenderness UI UX ENGINEER - Results Labs 09/15/24 12:56 09/15/24 12:56 Labs: Short CBC 09/15/24 Range/Units 12:56 WBC 7.8 (4.8-10.8) X10*3/uL Hgb 11.5 L (12.0-16.0) g/dl Hct 35.3 L (37.0-47.0) % Plt Count 242 (160-400) X10*3/uL BMP 09/15/24 12:56 Sodium 139 Potassium 4.1 Chloride 107 Carbon Dioxide 24 BUN 9 Creatinine 0.85 Calcium 9.0 D Liver Function 09/15/24 Range/Units 12:56 Total Bilirubin 0.6 (0.0-1.0) mg/dL Direct Bilirubin 0.2 (0.0-0.5) mg/dL AST 33 H (5-31) U/L ALT 11 (0-31) U/L Alkaline Phosphatase 56 (39-117) U/L Albumin 3.7 (3.5-5.0) g/dL Urine 09/15/24 Range/Units 12:56 Urine Color Red A Urine Appearance Turbid Urine pH 5.0 (5.0-9.0) Ur Specific [place] 1.025 (1.005-1.025) Urine Protein 100 (2+) H (Neg-Trace) mg/dL Urine Glucose (UA) Negative (Negative) mg/dL Imaging US - abdomen: Radiologist's impression: ITS Impressions Pelvic/Transvag US 09/15/24 14:32 IMPRESSION: No IUP is identified. Findings highly suspicious for a ruptured ectopic in the left adnexa as described. These findings were discussed with Dr. Kay in the emergency room on 09/15/2024 at 3:26 PM. Electronically signed by: Orion Booker MD 09/15/2024 03:29 PM EDT RP Assessment and Plan (1) Ruptured ectopic : Status: Acute Discussed with the patient her clinical scenario including ultrasound findings suspicious of ruptured ectopic Recommended laparoscopic salpingostomy possible partial salpingectomy, possible laparotomy. All the pros and cons were discussed with the patient including the risks including but not limited to: Risk of bleeding, infection, possible injury to bladder, bowel, ureter, bladder, possible injury to vessels and need for blood transfusion with all its risks including HIV, hepatitis-B and C and other blood borne pathogens, possible negative impact on future fertility. All questions answered, the patient verbalized understanding agreed with the plan and signed the consent. Type and screen sent. Communication was through online [employer] #[id number]
[2024-09-15] MEDS: fentaNYL citrate/PF 100 MCG/2 ML VIAL 75 MCG IVPUSH (15:14)
--- NOTE | 2024-09-15 15:32 | PC.NURSE ---
Dr Braun at bedside w [facility] Creole meter technician Esther #[id number]. Pt reporting 11/21 LLQ/pelvic pain w associated nausea. NPO since 11am (2 spoonfuls of food), reports nothing to eat overnight. senior human resources representative applied, vss.
--- NOTE | 2024-09-15 16:03 | PC.NURSE ---
RN-RN report given to PACU.
--- NOTE | 2024-09-15 16:44 | P.CONAN_ITS ---
HPI - Anesthesia Eval Consult details Narrative: for laparoscopy/laparotomy - ectopic PMFSH Active Problems Active Problems: All Active Problems Ruptured ectopic (Acute) Family planning (Acute) Ectopic (Acute) Abnormal (Acute) Bacterial vaginosis (Acute) Past Medical History Medical History (Updated 09/15/24 @ 15:10 by Jorje Kay DO) Ectopic Missed Family History Family history of problems with anesthesia: No Surgical History Surgical History Hx of section History of Problems with Anesthesia: No Social History Social History Household Members: Spouse and Children Housing: House Are you a primary urgent care physician assistant to a significant other at home: No Do you presently have visiting nurse or other home services: No Alcohol intake: never Patient Tobacco Use Status: Never used Tobacco Smoked in Last 30 Days: No Use of substances other than those prescribed or required for medical reasons: No Have you been hit, kicked, punched, or otherwise hurt by someone within the past year? If so, by whom?: No Are you DNR?: No Advance Directives: No Advance Directives Information Provided: No Advance Directives on File: No Do you have a plan to hurt others: No Plan Patient : No : No Poor oral hygiene: No Current occupational status: unemployed Sexual orientation: Straight/Heterosexual Gender identity: Female Meds Allergies Allergy/AdvReac Type Severity Reaction Status Date / Time No Known Allergies Allergy Verified 09/15/24 16:20 Exam Height,Weight and Vital Signs: Height 5 ft 9 in Weight 119.7 kg Last Vital Signs Temp 98.2 F 09/15/24 15:27 Pulse 64 09/15/24 15:36 Resp 14 09/15/24 15:36 BP 132/66 09/15/24 15:36 Pulse Ox 95 09/15/24 15:36 O2 Del Method Room Air 09/15/24 15:36 Pertinent Lab Results Pertinent Lab Results: Laboratory Tests 09/15/24 09/15/24 12:56 15:09 WBC 7.8 RBC 4.29 Hgb 11.5 L Hct 35.3 L MCV 82.3 MCH 26.8 L MCHC 32.6 RDW 13.0 Plt Count 242 MPV 10.2 Immature Gran % (Auto) 0.4 Neut % (Auto) 76.1 H Lymph % (Auto) 17.1 L [place] % (Auto) 5.1 Eos % (Auto) 1.0 Baso % (Auto) 0.3 Lymph # (Auto) 1.3 [place] # (Auto) 0.4 Eos # (Auto) 0.1 Baso # (Auto) 0.0 Abs Immat Gran (auto) 0.03 Absolute Neuts (auto) 6.0 Absolute Nucleated RBC 0.000 Nucleated RBC % (auto) 0.0 Sodium 139 Potassium 4.1 Chloride 107 Carbon Dioxide 24 Anion Gap 12 BUN 9 Creatinine 0.85 Estim Creat Clear Calc 135.0 Estimated GFR > 60 Random Glucose 117 H Calcium 9.0 D Magnesium 1.8 Total Bilirubin 0.6 Direct Bilirubin 0.2 AST 33 H ALT 11 Alkaline Phosphatase 56 Total Protein 6.7 Albumin 3.7 Lipase 23 Beta HCG, Quant 658 Urine Color Red A Urine Appearance Turbid Urine pH 5.0 Ur Specific [place] 1.025 Urine Protein 100 (2+) H Urine Glucose (UA) Negative Urine Ketones Negative Urine Blood Large (3+) H Urine Nitrite Negative Ur Leukocyte Esterase Small (1+) H Urine RBC >20 H Urine WBC 11-20 H Ur Squamous Epith Cells >20 Urine Bacteria 2+ Hyaline Casts 3-5 Blood Type B Positive Antibody Screen NEGATIVE Airway Mallampati Class: II TM Dist: <=3cm Neck ROM: Full Loose/Missing/Broken Teeth: No Heart: ok Lungs: ok Assessment and Plan Assessment Anesthesia Assessment: Anesthesia Plan Discussed and Chart Reviewed Final Anesthetic Review Family History of Problems with Anesthesia: No History of Problems with Anesthesia: No NPO: No (2 spoons of rice at 11am.) ASA Class: III and Emergency Final Preanesthetic Review: No Changes in Pt Med Stat, Meds/Allgs Chart Reviewed, Consent Obtained/Reviewed and Anes Risks/Benef Reviewed Patient Risk: Intermediate Procedure Risk: Intermediate Anesthetic Plan Anesthetic Plan: GA and Agree w/ Assess. and Plan Disposition: Standard PACU
--- NOTE | 2024-09-15 16:53 | PC.NURSE ---
1L NS started at 1500 per verbal order from provider. MAR updated to reflect, provider aware.
--- NOTE | 2024-09-15 17:36 | PC.NURSE ---
Patient in preop for emergent surgery. Honing Machine Set Up Operator, Melvina Mak, at bedside via [employer]. support checklist completed. When asked, patient voiced she would like case management to reach out to her following procedure for support options. Case management office closed at this time. Voicemail to this department left by this nurse to ensure patient is reached out to following her discharge. Patient phone number [phone]. PACU nurses made aware.
--- NOTE | 2024-09-15 18:16 | P.BOP_ITS ---
Brief Operative Note Date of Service: 09/15/24 Pre-op diagnosis: Left ruptured tubal with hemoperitoneum Post-op diagnosis: same (Left ectopic ending up the whole left fallopian tube with 300 cc of hemoperitoneum) Procedure: Laparoscopic left salpingectomy Surgeon: Gorge Braun MD Anesthesia: GETA Was an Aircraft Life Support Fitter used for this Procedure?: No Estimated blood loss (mL): 50 Pathology: other (left fallopian tube with ectopic ) Condition: stable Disposition: PACU
--- NOTE | 2024-09-15 18:19 | P.OP_ITS ---
Operative Note Operative Note Date of Service: 09/15/24 Narrative: PREOPERATIVE DIAGNOSIS:? Left ruptured tubal ectopic POSTOPERATIVE DIAGNOSIS:?3-4 cm left ecotpic filling up most of the tubal length with bluish discoloration, 300 cc of hemoperitoneum Procedure: Left salpingectomy QBL: Minimal Anesthesia: GETA SURGEON:? Gorge Braun MD?? Laborer Syrup Machine:None Complications: None Pathology: Left Fallopian tube with ectopic ? DESCRIPTION OF PROCEDURE:?The patient was taken to the OR where general anesthesia was easily obtained. The patient was then prepped and draped in a sterile fashion and placed in dorsal lithotomy position. A speculum was introduced into the patient?s vagina for cervical visualization. a was introduced into the patient?s cervix. The single tooth tenaculum was then removed and hemostasis was assured?using pressure. a Israel catheter?was inserted and clear urine started draining. Gloves were changed to clean ones. Attention was then drawn to the abdomen where a 10 mm longitudinal incision was done intra umbilical and carried down all the way to the fascia, which was tented?up using 2 Phoebe clamps and was nicked in the midline and then extended on both end of the incision?, them using 2 pick?ups the peritoneum?was entered with Metzenbaum scissors and under direct visualization, a 10 mm Garcia trocar was introduced into the patient?s abdomen. Once intraperitoneal placement was confirmed with direct visualization, pneumoperitoneum was started & was easily obtained.Then, two fingerbreadths above the pubic symphysis and towards the?right lower quadrant, under direct visualization, a 5 mm trocar was then introduced into the patient?s abdomen. and a 3rd 10 mm trocar on the left?lower quadrant was placed?in a similar manner. The patient was placed in Trendelenburg position, Inspection revealed left tubal filling up most of the left fallopian tube was bluish discoloration and 300 cc of blood clot around the tube and in the pelvis, normal bilateral ovaries and normal right fallopian tube. Attention was then drawn to the left fallopian tube. Since most of the left tube was filled up with the ectopic with bluish discoloration decision was made to proceed with left salpingectomy instead of salpingostomy The IP ligament was identified and fallopian tube was then grasped by the fimbria and incised from the mesosalpinx using ligasure device, using cautery for hemostasis and cutting afterwards a bite at a time all the way to the area medial to the edge of the ectopic of the left fallopian tube. Good hemostasis was noted from the left fallopian tube sites and the operative site. Specimen were then removed from the patient?s abdomen using endo bag from the 10 mm trocar through the left lower quadrant trocar. Copious irrigation was done. Once good hemostasis was noted from the patient?s abdomen, pneumoperitoneum was deflated and all trocars were removed. Infraumbilical fascia was closed with 0 Vicryl and interrupted suture. The skin was closed with 4-0 Vicryl. The Right and left?lower quadrant ports were closed with 0 Vicryl. Bupivicaine 0.25 10 cc were injected subcuticularly in the 3 incisions. Then speculum was put back in the vagina inspection revealed?hemostasis at the site of the tenaculum, the?sponge stick was removed?from the patient's vagina and Israel was draining clear urine was taken out too. Sponge, lap and needle counts were correct x2. The patient was taken to the recovery room in stable condition.
[2024-09-15] MEDS: fentaNYL citrate/PF 100 MCG/2 ML VIAL 50 MCG IVPUSH ×3 (18:47→19:37)
[2024-09-15] MEDS: Acetaminophen 325 MG TABLET 975 MG PO (19:43)
[2024-09-15] MEDS: oxyCODONE HCl Immed Release 5 MG TABLET PO (19:44)
== END 2024-09-15 20:46 | disposition home or self-care (01) ==
LOC: HO.ED 15:47 → HO.SSS 16:07
PROVIDERS: Emergency Medicine; Emergency Provider Emergency Medicine; Visit Provider Obstetrics & Gynecology
PROC: (CPT 59151; principal; 2024-09-15 17:00)
DX: O00.90 Unspecified ectopic pregnancy without intrauterine pregnancy (principal); R10.32 Left lower quadrant pain
CPT/HCPCS: 59151; 36415; 76801; 76817; 80048; 80076; 81001; 83690; 83735; 84702; 85025; 86850; 86900; 86901; 87086; 88302; 96361; 96374; 99284; 99285; J1171; J2003; J2704; J2795; J3010

== ENCOUNTER → 2024-09-15 14:12 | Outpatient (BNV) | payer MEDICAID, SELFPAY | PROVIDERS: Emergency Provider Emergency Medicine; Visit Provider Radiology Diagnostic Radiology | DX: O00.90 Unspecified ectopic pregnancy without intrauterine pregnancy (principal); R10.32 Left lower quadrant pain | CPT/HCPCS: 76801; 76817 ==

== ENCOUNTER → 2024-09-15 16:07 | Outpatient (BNV) | payer MEDICAID, SELFPAY | PROVIDERS: Emergency Provider Emergency Medicine; Visit Provider Obstetrics & Gynecology | DX: O00.90 Unspecified ectopic pregnancy without intrauterine pregnancy (principal) | CPT/HCPCS: 59151; 99283 ==

== ENCOUNTER 2024-09-28 10:12 | Outpatient (REF) | payer MEDICAID, SELFPAY ==
[2024-09-28 10:53] LABS: HCG Quantitative 8 mIU/mL
== END 2024-09-28 10:13 | disposition home or self-care (01) ==
LOC: HO.LAB 10:12
PROVIDERS: Visit Provider Obstetrics & Gynecology
DX: O00.90 Unspecified ectopic pregnancy without intrauterine pregnancy (principal)
CPT/HCPCS: 36415; 84702; 99212

== ENCOUNTER 2024-09-28 11:29 | Outpatient (AMB) | payer MEDICAID, SELFPAY ==
--- NOTE | 2024-09-28 11:32 | A.OFFVIS_ITS ---
Vital Signs 09/28/24 11:35 Height 5 ft 9 in Weight 255 lb BMI 37.7 Intake Visit Reasons: HCG follow up Classifier Tender Required: Yes Classifier Tender Language: Melvina Mak Classifier Tender Services: Classifier Tender Present ([employer]) Classifier Tender Name: Sang Dolan #[id number] Information Interpreted: non-clinical & clinical Accompanied by: Self / Same As Patient Allergies No Known Allergies Allergy (Verified 09/28/24 11:36) HPI Comments Details: Presenting 2 weeks post left partial laparoscopic salpingectomy for ectopic with hemoperitoneum. The patient is doing well no abdominal pain vaginal bleeding or any other concerns but complaining of few episodes of palpitations no associated shortness of breath or chest pain. The pathology showed the following: Fallopian tube, left salpingectomy: Fallopian tube with intratubal immature chorionic villi and implantation site changes consistent with ectopic tubal gestation HCG today is 8 done from 658 on 09/15/2024 [facility] Medical History (Updated 09/28/24 @ 12:00 by Gorge Braun MD) Ectopic Missed Surgical History (Updated 09/15/24 @ 17:19 by Hillary Bass RN) H/O dilation and curettage Hx of section Social History Household Members: Spouse and Children Housing: House Are you a primary home child care provider to a significant other at home: No Do you presently have visiting nurse or other home services: No Alcohol intake: never Comment: counts correct Patient Tobacco Use Status: Never used Tobacco Current occupational status: unemployed Sexual orientation: Straight/Heterosexual Gender identity: Female Physical Exam GI Percussion: Yes normal to percussion and Yes Other (Incisions clean dry and intact) Auscultation: normal bowel sounds Assessment & Plan Assessment & Plan (1) Ectopic : Comment: Status post laparoscopic left salpingectomy Code(s): O00.90 - Unspecified ectopic without intrauterine Category: Medical Qualifiers: Intrauterine status: without intrauterine Location of ectopic : unspecified location Qualified Code(s): O00.90 - Unspecified ectopic without intrauterine Plan: Discussed with the patient intraoperative findings, pathology results and hCG level, recommended repeat hCG in 1 week, order placed. Discussed with the patient the recurrence rate of ectopic and instructions given the patient to call early in next for hCG monitoring to diagnose IUP and rule out ectopic . All questions answered, the patient verbalized understanding (2) Family planning: Code(s): Z30.09 - Encounter for other general counseling and advice on contraception Category: Social Hx Plan: Discussed with the patient the different options of control including control pills/Nuvaring, DMPA, different types of IUD ?s, sterilization. All the pros, cons, risks and benefits of each were discussed with the patient. The patient decided to go ahead with an IUD, so a more detailed discussion was carried on including types (Progesterone, Copper), mechanism of action, risks (infection, uterine perforation, failure with ectopic , septic AB, dysmenorrhea with Paraguard, others) benefits (efficient contraceptive method, hypo menorrhea with Progesterone IUD, others) GC/CG will be taken and the patient was asked to call day one of next cycle for IUD insertion. (3) Palpitation: Code(s): R00.2 - Palpitations Category: Medical Plan: Instructions given the patient to go to emergency room to be evaluated christi. All questions answered, the patient verbalized understanding especially the urgency of her clinical situation and agreed with the plan Orders: Orders HCG Quantitative 1 Week O00.90 - Unspecified ectopic without intrauterine HCG Quantitative Today O00.90 - Unspecified ectopic without intrauterine Coding Level of Care Code Est Pt Level 3 (30241) Diagnoses Ectopic O00.90 Intrauterine status: without intrauterine Location of ectopic : unspecified location Family planning Z30. Palpitation R00.2
[2024-09-28 11:35] VITALS: BMI 37.7
== END 2024-09-28 12:17 | disposition home or self-care (01) ==
LOC: HO.HWS 11:29
PROVIDERS: Visit Provider Obstetrics & Gynecology
DX: O00.90 Unspecified ectopic pregnancy without intrauterine pregnancy (principal); Z30.09 Encounter for other general counseling and advice on contraception; R00.2 Palpitations
CPT/HCPCS: 99024

== ENCOUNTER 2024-09-28 12:09 | Emergency (ER) | payer MEDICAID, SELFPAY ==
--- NOTE | 2024-09-28 12:17 | ECG_ITS ---
Test Reason : CHEST PAIN Blood Pressure : */* mmHG Vent. Rate : 64 BPM Atrial Rate : 64 BPM P-R Int : 182 ms QRS Dur : 72 ms QT Int : 390 ms P-R-T Axes : 45 37 25 degrees QTcB Int : 402 ms Normal sinus rhythm with sinus arrhythmia Normal ECG No previous ECGs available Referred By: Vahe Gregg Electronically Signed By: Francis Magana
--- NOTE | 2024-09-28 12:23 | ED_ITS ---
HPI - General Adult General Chief complaint: Arrhythmia/Palpitations Stated complaint: chest palpitations/ irregular labs Time Seen by Provider: 09/28/24 13:01 Source: patient, RN notes reviewed, old records reviewed and international specialist Mode of arrival: ambulatory Limitations: language barrier History of Present Illness ED Provider: Alberto HPI narrative: Patient is a 29-year-old Barb[place] Creole speaking female 2 weeks s/p left partial salpingectyomy for ectopic with hemoperitoneum presenting to the ED from Dr. Braun's office for evaluation of palpitations since 09/17/24. Patient reports she has been having palpitations every day but they are intermittent. Denies associated chest pain or dyspnea. Denies dizziness or lightheadedness. States she is unsure why she was referred to the emergency deparmtment. MD complaint: palpitations Onset (ago): day(s) Related Data Previous Rx's ?Medication ?Instructions ?Recorded acetaminophen 325 mg tablet 650 mg (2 x 325 mg) PO Q6H PRN 09/27/22 (Tylenol) fever or pain #30 tabs ibuprofen 600 mg tablet 600 mg PO Q8H PRN pain #30 tabs 09/27/22 oxycodone 5 mg capsule 5 mg PO Q4H PRN pain #14 caps 09/15/24 Allergies Allergy/AdvReac Type Severity Reaction Status Date / Time No Known Allergies Allergy Verified 09/28/24 12:29 Review of Systems 2 Review of Systems: As per HPI Yes all other systems are reviewed and are negative Constitutional: Constitutional: Reports as per HPI [facility] Past Medical History Medical History (Updated 09/28/24 @ 15:01 by Elizabeth Dominguez NP) Ectopic Missed Surgical History (Updated 09/15/24 @ 17:19 by Hillary Bass RN) H/O dilation and curettage Hx of section Social History Social History Household Members: Spouse and Children Housing: House Are you a primary patient care nursing assistant to a significant other at home: No Do you presently have visiting nurse or other home services: No Alcohol intake: never Comment: counts correct Patient Tobacco Use Status: Never used Tobacco Smoked in Last 30 Days: No Use of substances other than those prescribed or required for medical reasons: No Advance Directives: No Advance Directives Information Provided: Yes Do you have a plan to hurt others: No Plan Patient : No Current occupational status: unemployed Sexual orientation: Straight/Heterosexual Gender identity: Female Physical Exam ED Vital Signs: Vital Signs - 24 hr 09/28/24 12:27 09/28/24 13:04 09/28/24 15:26 Temperature 97.6 F 97.7 F 97.7 F Pulse Rate 63 66 61 Respiratory Rate 16 16 20 Blood Pressure 119/78 100/70 107/60 Pulse Oximetry 97 99 100 Oxygen Delivery Method Room Air Room Air Room Air BMI result Body Mass Index 34.4 Vital signs have been reviewed and appear to be correct. Blood pressure normal. Heart rate normal. Respiratory rate normal. Temperature normal. Oxygen saturation normal. Const General: cooperative, healthy appearing and no acute distress Orientation/consciousness: oriented to person, oriented to place, oriented to time and patient oriented x3 Limitations: no limitations HENMT Head: Yes normocephalic and Yes atraumatic Ears: external ears normal General nose exam: Normal external nose present Face and sinus: Yes face symmetric Mouth: oropharynx normal and moist mucous membranes Throat: Yes uvula midline Eyes Pupils: Equal, round and reactive pupils present Neck Neck: Yes normal visual inspection and Yes supple Resp Effort & Inspection: normal respiratory effort and able to speak in complete sentences Auscultation: clear to auscultation bilaterally Cardio Rate: regular rate Rhythm: regular rhythm Heart sounds: S1 normal heart sound present and S2 normal heart sound present Peripheral pulses: Peripheral pulses 2+ throughout GI Palpation (GI): Soft to palpation and nontender Auscultation: normoactive bowel sounds General: Yes no CVA tenderness Back/Spine/Pelvis Back: no CVA tenderness Skin General skin exam: elasticity normal and turgor normal Neuro General: oriented to person, oriented to place, oriented to time, patient oriented x3, moves all extremities, no focal motor deficits and CN's II-XI intact bilaterally Cranial nerves: Yes Equal, round and reactive pupils present Cognition (Neuro): normal cognition Extrem General: Yes full ROM, Yes no pedal edema and Yes no calf tenderness Psych Mental Status: mental status grossly normal Affect: normal affect Thought process: Normal thought process present Course Course Course Narrative: RME, this is a rapid medical exam performed by Shakeel Gregg please refer to primary provider for complete H&P- 29-year-old female presents for evaluation of chest pain and palpitations. She had a recent salpingectomy with oophorectomy on 09/15/2024 with doctors are be. She was sent to the ER today after having a follow up appointment with him in the office and complaining of chest pain and palpitations. Plan for EKG, labs Medical Decision Making Medical Decision Making [facility] Narrative: Patient is a 29-year-old [place] Creole speaking female 2 weeks s/p left partial salpingectyomy for ectopic with hemoperitoneum presenting to the ED from Dr. Braun's office for evaluation of palpitations since 09/17/24. On exam patient is awake, A+Ox3, VS WNL, afebrile, normal neurological exam without focal deficits, physical exam findings as above. Given reported symptoms and physical exam findings, initial differential includes but is not limited to cardiac arrhythmia, electrolyte abnormality, anemia. Less likely PE but will check D-dimer. Labs notable for no leukocytosis, no anemia, no significant electrolyte abnormalities, downtrending hCG, normal TSH, negative D-dimer. EKG shows normal sinus rhythm. Results discussed with patient and all questions answered. Will refer to cardiology for further evaluation of symptoms. Return precautions discussed. Patient verbalized understanding of and agreement with plan. Video [place] Creole international specialist was utilized for all interactions, assessments, and discussions. Differential Diagnosis Differential Diagnoses: The differential diagnosis associated with the presentation includes As per [facility] Admission/Observation Consideration of admission/observation: Escalation of care including admission/observation considered Patient would have been admitted to the hospital had their work up had any findings where hospital admission was appropriate and their clinical presentation warranted hospital admission. Lab Data [facility] Lab Attestation statement: I reviewed the patient's lab results. as per [facility] 09/28/24 12:32 09/28/24 12:32 Labs: Lab Results 09/28/24 09/28/24 Range/Units 12:32 14:10 WBC 7.0 (4.8-10.8) X10*3/uL RBC 4.49 (4.20-5.50) X10*6/uL Hgb 11.9 L (12.0-16.0) g/dl Hct 37.3 (37.0-47.0) % MCV 83.1 (80.0-98.0) fL MCH 26.5 L (27.0-33.0) pg MCHC 31.9 (31.0-35.0) g/dl RDW 12.8 (11.0-16.0) % Plt Count 324 D (160-400) X10*3/uL MPV 9.9 (9.4-12.3) fL Immature Gran % (Auto) 0.3 (0.0-0.4) % Neut % (Auto) 53.3 (45-73) % Lymph % (Auto) 35.6 (20-40) % Kleberg % (Auto) 7.1 (2-11) % Eos % (Auto) 3.1 (0-4) % Baso % (Auto) 0.6 (0-2) % Lymph # (Auto) 2.5 (1.2-4.9) X10*3/uL Kleberg # (Auto) 0.5 (0.1-1.2) X10*3/uL Eos # (Auto) 0.2 (0.0-0.4) X10*3/uL Baso # (Auto) 0.0 (0.0-0.2) X10*3/uL Abs Immat Gran (auto) 0.02 (0.00-0.03) X10*3/uL Absolute Neuts (auto) 3.7 (2.0-8.3) x10*3/uL Absolute Nucleated RBC 0.000 (0.0-0.012) X10*3/uL Nucleated RBC % (auto) 0.0 (0.0-0.2) /100WBC D-Dimer High Sensitivty < 150 NG/ML Sodium 139 (135-145) mmol/L Potassium 4.5 (3.3-5.1) mmol/L Chloride 109 H (96-108) mmol/L Carbon Dioxide 26 (22-29) mmol/L Anion Gap 9 L (12-20) BUN 14 (9-16) mg/dL Creatinine 0.95 (0.5-1.4) mg/dL Estim Creat Clear Calc 113.1 Estimated GFR > 60 Random Glucose 88 (60-115) mg/dL Calcium 9.5 (8.4-10.2) mg/dL Magnesium 1.9 (1.6-2.6) mg/dL Total Bilirubin 0.6 (0.0-1.0) mg/dL AST 18 (5-31) U/L ALT 15 (0-31) U/L Alkaline Phosphatase 69 (39-117) U/L Troponin I High Sens < 2.7 (<3.5-17.0) ng/L Total Protein 7.2 (6.5-8.0) g/dL Albumin 4.3 (3.5-5.0) g/dL Lipase 30 (8-78) U/L TSH 2.97 (0.32-4.0) uIU/mL Beta HCG, Quant 7 mIU/mL Influenza Type A (PCR) NEGATIVE (Negative) Influenza Type B (PCR) NEGATIVE (Negative) RSV RNA Qual (PCR) NEGATIVE (Negative) SARS-CoV-2 RNA (RT-PCR) NEGATIVE (Negative) Independent Interpretation I performed an independent interpretation of an: EKG (normal sinus rhythm, rate 64bpm, normal [place] interval and QTc) External Record Review External record reviewed: Inpatient record, Office record and Outpatient record Discharge Plan Discharge Clinical Impression: Palpitations Patient Disposition: Home, Self-Care Instructions: Heart Palpitations (DC) Additional Instructions: You were evaluated in the emergency department today for palpitations. Your evaluation did not show any evidence of emergent medical conditions. We recommend that you follow-up with the machine brush maker for further evaluation of your symptoms. You may need a Holter monitor for further evaluation. Return to the emergency department if you develop chest pain, shortness of breath or difficulty breathing, dizziness, lightheadedness, fainting, fever, or any other new or concerning symptoms. Prescriptions: No Action oxycodone 5 mg capsule 5 mg PO Q4H PRN (Reason: pain) Qty: 14 0RF Rx Instructions: Partial Fill upon patient request. ibuprofen 600 mg tablet 600 mg PO Q8H PRN (Reason: pain) Qty: 30 0RF acetaminophen [Tylenol] 325 mg tablet 650 mg PO Q6H PRN (Reason: fever or pain) Qty: 30 0RF Referrals: [facility] [Provider Group] - 1 week (palpitations) Stand Alone Forms: Work/School Release Print Language: Melvina Mak
[2024-09-28 12:27] VITALS: BP 119/78; PULSE 63; RESP 16; TEMP 36.4; O2SAT 97; BMI 34.4
[2024-09-28 12:36] LABS: MANUAL DIFF FLAG NO
[2024-09-28 12:37] LABS: Basophils Percent Auto 0.6 % (0-2); Eosinophils Absolute Auto 0.2 X10*3/uL (0.0-0.4); Eosinophils Percent Auto 3.1 % (0-4); Hematocrit 37.3 % (37.0-47.0); Hemoglobin 11.9 g/dl (12.0-16.0); Imm Gran Abs Auto 0.02 X10*3/uL (0.00-0.03); Imm Gran Pct Auto 0.3 % (0.0-0.4); Lymphocytes Absolute Auto 2.5 X10*3/uL (1.2-4.9); Lymphocytes Percent Auto 35.6 % (20-40); Mean Corpuscular HGB Conc 31.9 g/dl (31.0-35.0); Mean Corpuscular Hemoglobin 26.5 pg (27.0-33.0); Mean Corpuscular Volume 83.1 fL (80.0-98.0); Mean Platelet Volume 9.9 fL (9.4-12.3); Monocytes Absolute Auto 0.5 X10*3/uL (0.1-1.2); Monocytes Percent Auto 7.1 % (2-11); Neutrophils Absolute Auto 3.7 x10*3/uL (2.0-8.3); Neutrophils Percent Auto 53.3 % (45-73); Platelet Count 324 X10*3/uL (160-400); Red Blood Count 4.49 X10*6/uL (4.20-5.50); Red Cell Distribution Width 12.8 % (11.0-16.0)
[2024-09-28 12:58] LABS: Alanine Aminotransferase 15 U/L (0-31); Albumin Level 4.3 g/dL (3.5-5.0); Alkaline Phosphatase 69 U/L (39-117); Anion Gap 9 (12-20); Aspartate Amino Transferase 18 U/L (5-31); Bilirubin Total 0.6 mg/dL (0.0-1.0); Blood Urea Nitrogen 14 mg/dL (9-16); Calcium 9.5 mg/dL (8.4-10.2); Carbon Dioxide 26 mmol/L (22-29); Chloride 109 mmol/L (96-108); Creatinine Clr Calc Pharmacy 113.1; Estimated Glomerular Filt Rate > 60; Glucose Random 88 mg/dL (60-115); Lipase 30 U/L (8-78); Magnesium 1.9 mg/dL (1.6-2.6); Potassium 4.5 mmol/L (3.3-5.1); Sodium 139 mmol/L (135-145); Total Protein 7.2 g/dL (6.5-8.0)
[2024-09-28 12:59] LABS: Troponin-I High Sensitivity < 2.7 ng/L (<3.5-17.0)
[2024-09-28 13:00] LABS: HCG Quantitative 7 mIU/mL
[2024-09-28 13:04] VITALS: BP 100/70; PULSE 66; RESP 16; TEMP 36.5; O2SAT 99
[2024-09-28 13:13] LABS: TSH reflex Free T4 2.97 uIU/mL (0.32-4.0)
[2024-09-28 13:15] LABS: Influenza A PCR NEGATIVE (Negative); Influenza B PCR NEGATIVE (Negative); Resp Syncy Virus RNA Qual PCR NEGATIVE (Negative); SARS COV2 PCR INHOUSE NEGATIVE (Negative)
[2024-09-28 14:36] LABS: D Dimer High Sensitivity < 150 NG/ML
[2024-09-28 15:26] VITALS: BP 107/60; PULSE 61; RESP 20; TEMP 36.5; O2SAT 100
--- NOTE | 2024-09-28 15:27 | MHC.EDTECH ---
pt changed into hospital gown, placed on heart monitor, vitals obtained
[2024-09-28 15:46] VITALS: BP 107/60; PULSE 61; RESP 20; TEMP 36.5; O2SAT 100
--- NOTE | 2024-09-29 15:30 | PC.NURSE ---
PT presenting to ED today requesting work note in triage. Work note given.
== END 2024-09-28 15:53 | disposition home or self-care (01) ==
PROVIDERS: Physician Assistant; Registered Nurse Emergency; Emergency Provider Emergency Medicine
DX: R00.2 Palpitations (principal); Z03.818 Encounter for observation for suspected exposure to other biological agents ruled out
CPT/HCPCS: 0241U; 36415; 80053; 83690; 83735; 84443; 84484; 84702; 85025; 85379; 93005; 99283; 99285

== ENCOUNTER → 2024-09-28 12:17 | Outpatient (BNV) | payer MEDICAID, SELFPAY | PROVIDERS: Emergency Provider Emergency Medicine; Visit Provider Internal Medicine Cardiovascular Disease | DX: R07.9 Chest pain, unspecified (principal) | CPT/HCPCS: 93010 ==

== ENCOUNTER 2024-10-11 09:55 | Outpatient (REF) | payer SELFPAY ==
[2024-10-11 10:41] LABS: HCG Quantitative < 2 mIU/mL
== END 2024-10-11 09:56 | disposition home or self-care (01) ==
LOC: HO.LAB 09:55
PROVIDERS: Visit Provider Obstetrics & Gynecology
DX: O00.90 Unspecified ectopic pregnancy without intrauterine pregnancy (principal)
CPT/HCPCS: 36415; 84702; 99212

== ENCOUNTER 2024-10-11 10:31 | Outpatient (AMB) | payer MEDICAID, SELFPAY ==
--- NOTE | 2024-10-11 10:44 | A.OFFVIS_ITS ---
Vital Signs 10/11/24 10:45 Height 5 ft 9 in Weight 233 lb BMI 34.4 Intake Visit Reasons: HCG follow up Bench Repair Technician Required: Yes Bench Repair Technician Language: Melvina Mak Bench Repair Technician Services: Bench Repair Technician Present ([place]) Bench Repair Technician Name: Brayan # [id number] Information Interpreted: non-clinical & clinical Accompanied by: Self / Same As Patient Allergies No Known Allergies Allergy (Verified 10/11/24 10:46) HPI Comments Details: Presenting for follow-up doing well with no complaints. The patient did not have her menstrual cycle yet. HCG done today was less than 2 PFSH Medical History Ectopic Missed Surgical History H/O dilation and curettage Hx of section Social History Household Members: Spouse and Children Housing: House Are you a primary restorative care technician to a significant other at home: No Do you presently have visiting nurse or other home services: No Alcohol intake: never Comment: counts correct Patient Tobacco Use Status: Never used Tobacco Current occupational status: unemployed Sexual orientation: Straight/Heterosexual Gender identity: Female Review of Systems Const All systems reviewed & are unremarkable except as noted in HPI and below Reports as per HPI and Reports no additional complaints GI Reports no additional complaints Reports no additional complaints Physical Exam Vital Signs: BMI result Body Mass Index 34.4 Assessment & Plan Assessment & Plan (1) Ectopic : Comment: Status post laparoscopic left salpingectomy Code(s): O00.90 - Unspecified ectopic without intrauterine Category: Medical Qualifiers: Intrauterine status: without intrauterine Location of ectopic : unspecified location Qualified Code(s): O00.90 - Unspecified ectopic without intrauterine Plan: Discussed with the patient the results of hCG being less than 2. Instructions given the patient to call day 1 of her next cycle for IUD insertion per her choice as previously counseled regarding different options family planning and to call in case does not have her menstrual cycle within 2 weeks. All questions answered, the patient verbalized understanding Coding Level of Care Code Est Pt Level 3 (38645) Diagnoses Ectopic O00.90 Intrauterine status: without intrauterine Location of ectopic : unspecified location
[2024-10-11 10:45] VITALS: BMI 34.4
== END 2024-10-11 11:15 | disposition home or self-care (01) ==
LOC: HO.HWS 10:31
PROVIDERS: Visit Provider Obstetrics & Gynecology
DX: O00.90 Unspecified ectopic pregnancy without intrauterine pregnancy (principal)
CPT/HCPCS: 99024

== ENCOUNTER 2025-03-22 17:31 | Outpatient (REF) | payer SELFPAY ==
--- OUTSIDE RECORDS SUMMARY | 2025-03-22 14:00 | XMS_ITS | Encounter Summary ---
Author Organization [employer] Address [address] [place] [address] Care Team Providers Care Stock Feeder Name Role Phone Unavailable Primary Care Provider Unavailabl e Reason for Visit * Reason Comments Abdominal Pain Encounter Details Date Type Department Care Team (Late st Contact Info) Description 03/22/2025 2:00 PM EST Office Visit [facility] [address] [place], [place] [phone] Rufina Soto MD [address] [place], [place] [phone] Right lower quadrant pain (Primary Dx); Possible ; Positive urine test Social History Tobacco Use Types Packs/Day Years Used Date Smoking Tobacco: Never Passive Smoke Exposure: Never Tobacco Cessation:Counseling Given: Not Answered Comments Unknown Sex and Gender Information Value Date Recorded Sex Assigned at Female 03/22/2025 1:08 PM EST Legal Sex Female 2:37 PM EDT Gender Identity Female 03/22/2025 1:08 PM EST Sexual Orientation Straight 03/22/2025 1: 08 PM EST documented as of this encounter Last Filed Vital Signs Vital Sign Reading Time Taken Comments Blood Pressure 130/77 03/22/2025 1:27 PM EST Pulse 83 03/22/2025 1:27 PM EST Temperature 37 C (98.6 F) 03/22/2025 1:27 PM EST Respiratory Rate 16 03/22/2025 1:27 PM EST Oxygen Saturation 100% 03/22/2025 1:27 PM EST Inhaled Oxygen Concentration - - Weight 119 kg (262 lb) 03/22/2025 1:27 PM EST Height - - Body Mass Index - - documented in this encounter Progress Notes * Rufina Begum MD - 03/22/2025 2:00 PM EST SUBJECTIVE: Antwan Vincent is a 30 y.o. year old female who presents for New patient/acute visit . Concerns for today's visit: Occupation:works in [employer] Lives with: and 2 kids - EtOH denies - smoking cigarettes denies - recreational drug use denies Diet:regular Exercise:sedentary LMP: 02/15/25 Surgeries/Hospitalizations:ectopic left side PMHx:none FMHx:none Immunizations: Reviewed Antwan Vincent, 30 years Early and Abdominal Pain - Positive test performed on Friday, March 16, 2025 - Last menstrual period on February 15, 2025 - Reports pain described as a ball that is hurting on the right side, onset 4 days ago - Denies vaginal bleeding - Denies burning sensation with urination - Reports bad odor noticed after removing underwear at end of workday - Denies blood in urine - Reports back pain - Reports increased urinary frequency and urgency History of Ectopic Pregnancies - Two prior ectopic pregnancies, with similar pain experienced previously but on the opposite (left) side - Surgical removal of left fallopian tube following ectopic Social History Social History Narrative Not on file Problem List[1] Family History[2] Review of Systems Constitutional: Negative. HENT: Negative. Respiratory: Negative. Cardiovascular: Negative. Gastrointestinal: Positive for abdominal distention and abdominal pain. Negative for anal bleeding,blood in stool, constipation, diarrhea, nausea, rectal pain and vomiting. OBJECTIVE: Vitals: 03/22/25 1327 BP: 130/77 BP Location: Right arm Patient Position: Sitting BP Cuff Size: Adult Pulse: 83 Resp: 16 Temp: 98.6 ??F (37 ??C) TempSrc: Temporal SpO2: 100% Weight: 262 lb (119 kg) Physical Exam Constitutional: Appearance: Normal appearance. Cardiovascular: Rate and Rhythm: Normal rate and regular rhythm. Pulmonary: Effort: Pulmonary effort is normal. Breath sounds: Normal breath sounds. Abdominal: General: Abdomen is flat. Palpations: Abdomen is soft. Tenderness: There is abdominal tenderness in the right lower quadrant. There is no right CVA tenderness or left CVA tenderness. Musculoskeletal: Right lower leg: No edema. Left lower leg: No edema. Neurological: Mental Status: She is alert. Follow Up: No follow-ups on file. Medications Ordered Prior to Encounter[3] Problem List Items Addressed This Visit Right lower quadrant pain - Primary Positive urine test Other Visit Diagnoses Possible Relevant Orders Bacterial Vaginosis Culture, Urine, Routine POCT urinalysis dipstick manually resulted (CPT 29877) POCT , urine manually resulted Early with right-sided pelvic pain; concern for ectopic versus urinary tract infection: - Positive test with right-sided pelvic pain. Prior ectopic pregnancies and similar pain pattern raise concern for ectopic . - Directed to go to the emergency room for evaluation to verify safety of . Planned to present the case to the hospital physician; Arranged nursing follow-up call in a few days to review what happened. Will place referral to OB if still , depending on results. Possible urinary tract infection in : - Possible urinary tract infection considered. - Ordered urine testing and a swab. Nursing follow-up call in a few days to reassess; further management dependent on results. This note was drafted using [employer] ([email or web address]) technology. The patient/patient's guardian has been informed and has consented to the use of this technology: Yes [1] Patient Active Problem List Diagnosis Right lower quadrant pain Positive urine test [2] No family history on file. [3] No current outpatient medications on file prior to visit. No current facility-administered medications on file prior to visit. documented in this encounter Plan of Treatment Upcoming Encounters Date Type Department Care Team (Late st Contact Info) Description 05/09/2025 2:00 PM EST Office Visit [facility] [address] [place] [id number] Rufina Soto MD [address] [place] [address] Scheduled Orders Name Type Priority Associated Diagnoses Orde r Schedule Bacterial Vaginosis Microbiology Routine Possible Ordered: 03/22/2025 Culture, Urine, Routine Microbiology Routine Possible Ordered: 03/22/2025 documented as of this encounter Procedures Procedure Name Priority Date/Time Associated Diagnosis Comments POCT , URINE Routine 03/22/2025 2:12 PM EST Possible POCT URINALYSIS DIPSTICK Routine 03/22/2025 2:12 PM EST Possible documented in this encounter Results * (ABNORMAL) POCT , urine manually resulted (03/22/2025 2:12 PM EST) Preg Test, Ur Positive( A) Negative, Indeterminate, None Detected, Trace, 3+, Specimen unsatisfactory for evaluation, Weakly Positive, 1+, 2+ Urine 03/22/2025 2:12 PM EST Rufina Begum MD POINT OF CARE TEST EN TER/EDIT ORDERABLES Final Result * POCT urinalysis dipstick manually resulted (CPT 30240) (03/22/2025 2:12 PM EST) Color, UA Yellow Clarity, UA Clear Glucose, UA Negative Bilirubin, UA Negative Ketones, UA Negative Spec Grav, UA 1.020 Blood, UA Negative Negative, None Detected pH, UA 7.0 Protein, UA Negative Urobilinogen, UA 0.2 Leukocytes, UA Negative Negative, Rare, Trace, 1+ (17), 2+ (35), 3+ (70), Trace (15) Nitrite, UA Negative Negative, None Detected Appearance, UA Ok Urine (Urine, Random) 03/22/2025 2:12 PM EST Rufina Begum MD POINT OF CARE TEST EN TER/EDIT ORDERABLES Final Result documented in this encounter Visit Diagnoses Diagnosis Right lower quadrant pain- Primary Possible Positive urine test documented in this encounter
--- OUTSIDE RECORDS SUMMARY | 2025-03-22 23:05 | XMS_ITS | Encounter Summary ---
Author Organization [employer] [facility] Address [address] [place] [address] Care Team Providers Care Employee Relations Representative Name Role Phone Unavailable Primary Care Provider Unavailabl e Encounter Details Date Type Department Care Team (Latest Contact Info) Description 03/22/2025 Travel Social History Tobacco Use Types Packs/Day Years Used Date Smoking Tobacco: Never Passive Smoke Exposure: Never Comments Unknown Sex and Gender Information Value Date Recorded Sex Assigned at Female 03/22/2025 1:08 PM EST Legal Sex Female 2:37 PM EDT Gender Identity Female 03/22/2025 1:08 PM EST Sexual Orientation Straight 03/22/2025 1: 08 PM EST documented as of this encounter Plan of Treatment Upcoming Encounters Date Type Department Care Team (Late st Contact Info) Description 05/09/2025 2:00 PM EST Office Visit [facility] [address] [place] [address] Rufina Soto MD [address] [place] [phone] documented as of this encounter Visit Diagnoses Not on filedocumented in this encounter
--- OUTSIDE RECORDS SUMMARY | 2025-03-22 23:05 | XMS_ITS | Clinical Summary ---
Author Organization [employer] Address [address] [facility] [address] [place] [address] Care Team Providers Care Personal Driver Name Role Phone Unavailable Primary Care Provider Unavailabl e Allergies No known active allergies Active Problems Problem Noted Date Diagnosed Date Right lower quadrant pain 03/22/2025 Positive urine test 03/22/2025 Encounters Date Type Department Care Team Description 03/22/2025 2:00 PM EST Office Visit [facility] [address] [place] [phone] Rufina Soto MD Right lower quadrant pain (Primary Dx); Possible ; Positive urine test 03/22/2025 Travel from Last 3 Months Social History Tobacco Use Types Packs/Day Years Used Date Smoking Tobacco: Never Passive Smoke Exposure: Never Tobacco Cessation:Counseling Given: Not Answered Comments Unknown Sex and Gender Information Value Date Recorded Sex Assigned at Female 03/22/2025 1:08 PM EST Legal Sex Female 2:37 PM EDT Gender Identity Female 03/22/2025 1:08 PM EST Sexual Orientation Straight 03/22/2025 1: 08 PM EST Last Filed Vital Signs Vital Sign Reading [...] - - Body Mass Index - - Plan of Treatment Upcoming Encounters Date Type Department Care Team (Late st Contact Info) Description 05/09/2025 2:00 PM EST Office Visit [facility] [address] [place] [phone] Rufina Soto MD [address] [place] [address] Health Maintenance Due Date Last Done Comments Depression Screening 1995 HIV Screening 1995 SDOH Screening 1995 Disability Screening 1995 Alcohol/Substance Use Screening 2007 Family Planning (PISQ) 2010 HPV Vaccines (1 - 3-dose series) 2010 Hepatitis C Screening 2013 DTaP/Tdap/Td Vaccines (1 - Tdap) 2014 Hepatitis B Vaccines (1 of 3 - 19+ 3-dose series) 2014 Pap Smear 01/23/2016 COVID-19 Vaccine (1 - 2024-2 6 season) 2024 Influenza Vaccine (#1) 2024 Cervical Cancer Screening 2025 HPV/Cotest 2025 Tobacco Screening 03/22/2026 03/22/2025 Zoster Vaccines (1 of 2) 2045 RSV Patients and Pa tients Aged 60 years or older (1 - 1-dose 75+ series) 2070 HIB Vaccines Aged Out No longer eligi ble based on patient's age to complete this topic Hepatitis A Vaccines Aged Out No long er eligible based on patient's age to complete this topic IPV Vaccines Aged Out No longer eligi ble based on patient's age to complete this topic Meningococcal B Vaccine Aged Out No l onger eligible based on patient's age to complete this topic Meningococcal Vaccine Aged Out No rober david eligible based on patient's age to complete this topic Pneumococcal Vaccine: Pediat rics (0 to 5 Years) and At-Risk Patients (6 to 49) Years Aged Out No longer eligi ble based on patient's age to complete this topic RSV under 20 months Aged Out No longe r eligible based on patient's age to complete this topic Rotavirus Vaccines Aged Out No longer eligible based on patient's age to complete this topic Procedures Procedure Name Priority Date/Time Associated Diagnosis Comments POCT , URINE Routine 03/22/2025 2:12 PM EST Possible POCT URINALYSIS DIPSTICK Routine 03/22/2025 2:12 PM EST Possible from Last 3 Months Results * (ABNORMAL) POCT , urine manually resulted (03/22/2025 2:12 PM EST) Preg Test, Ur Positive( A) Negative, Indeterminate, None Detected, Trace, 3+, Specimen unsatisfactory for evaluation, Weakly Positive, 1+, 2+ Urine 03/22/2025 2:12 PM EST Rufina Begum MD POINT OF CARE TEST EN TER/EDIT ORDERABLES Final Result * POCT urinalysis dipstick manually resulted (CPT 72360) (03/22/2025 2:12 PM EST) Color, UA Yellow [...] CARE TEST EN TER/EDIT ORDERABLES Final Result from Last 3 Months Insurance [employer] FULL
[2025-03-23 00:32] LABS: Bacterial Vaginosis PCR POSITIVE (Negative); Candida Group PCR NOT DETECTED (Not Detect); Candida glab krusei PCR NOT DETECTED (Not Detect); Trichomonas vaginalis PCR NOT DETECTED (Not Detect)
== END 2025-03-22 17:32 | disposition home or self-care (01) ==
LOC: HO.HHCLNP 17:31
PROVIDERS: Visit Provider Internal Medicine
DX: Z32.00 Encounter for pregnancy test, result unknown (principal); Z20.2 Contact with and (suspected) exposure to infections with a predominantly sexual mode of transmission
CPT/HCPCS: 81515; 87086

== ENCOUNTER 2025-03-30 05:57 | Emergency (ER) | payer MEDICAID, SELFPAY ==
--- OUTSIDE RECORDS SUMMARY | 2025-03-30 06:02 | XMS_ITS | Clinical Summary ---
Author Organization [employer] Address [address] [facility] [address] [place] [address] Care Team Providers Care Ammonium Nitrate Neutralizer Name Role Phone Unavailable Primary Care Provider Unavailabl e Allergies No known active allergies Medications metroNIDAZOLE (Metrogel) 0.75 % vaginal gel Insert into the vagina at bedtime for 7 days. 70 g 03/23/2025 Active Active Problems Problem Noted Date Diagnosed Date Right lower quadrant pain 03/22/2025 Positive urine test 03/22/2025 Encounters Date Type Department Care Team Description 03/28/2025 Orders Only [facility] [address] [place] [phone] Rufina Soto MD 03/23/2025 Results Follow-Up [facility] [address] [place] [phone] Rufina Soto MD Bacterial Vaginosis, Culture, Urine, Routine, POCT urinalysis dipstick manually resulted (CPT 35223), POCT , urine manually resulted 03/23/2025 Orders Only [address] [id number] Rufina Soto MD Bacterial vaginosis (Primary Dx); Positive test 03/23/2025 Telephone [facility] [address] [place] [phone] Rufina Soto MD 03/22/2025 2:00 PM EST Office Visit [facility] [address] [place] [phone] Rufina Soto MD Right lower quadrant pain [...] Description 05/09/2025 2:00 PM EST Office Visit [facility] [address] [place] [address] Rufina Soto MD [address] [place] [address] Health Maintenance Due Date Last Done Comments [...] DIPSTICK Routine 03/22/2025 2:12 PM EST Possible CULTURE, URINE, ROUTINE Routine 03/22/2025 2:01 PM EST Possible BACTERIAL VAGINOSIS PANEL Routine 03/22/2025 2:01 PM EST Possible from Last 3 Months Results * (ABNORMAL) POCT , urine manually resulted (03/22/2025 2:12 PM EST) Preg Test, Ur Positive( A) Negative, Indeterminate, None Detected, Trace, 3+, Specimen unsatisfactory for evaluation, Weakly Positive, 1+, 2+ Urine 03/22/2025 2:12 PM EST us Rufina Begum MD POINT OF CARE TEST EN TER/EDIT ORDERABLES Final Result * POCT urinalysis dipstick manually resulted (CPT 24379) (03/22/2025 2:12 PM EST) Color, UA Yellow [...] TEST EN TER/EDIT ORDERABLES Final Result * (ABNORMAL) Bacterial Vaginosis (03/22/2025 2:01 PM EST) TRICHOMONAS VAGINALIS DETECTION BY PCR NOT DETECTED Not Detect [facility] BACTERIAL VAGINOSIS DETECTION BY PCR POSITIVE(A) Negative [facility] Comment:The BV organism targ ets of the Xpert Xpress MVP test can becommensal in women; Xpert Xpress MVP positive results forbacterial vaginosis should be considered in conjunction withother clinical and patient information to determine thedisease status. Organisms that are not detected by the XpertXpress MVP test have also been reported to be associatedwith BV and aerobic vaginitis.The Xpert Xpress MVP test performance has not been evaluatedin patients under the age of 14. MIMA GROUP DETECTION BY PCR NOT DETECTED Not Detect [facility] Mima glab krusei PCR NOT DETECTED Not Detect [facility] Swab Vaginal structure / Unknown 03/22/2025 2:01 PM EST 03/22/2025 5:32 PM EST us Rufina Begum MD LAB MICROBIOLOGY - GE NERAL ORDERABLES Final Result [facility] [address] [place] [phone] * Culture, Urine, Routine (03/22/2025 2:01 PM EST) Urine Urine specimen obtained by clean catch procedure / Unknown 03/22/2025 2:01 PM EST 03/22/2025 5:32 PM EST Comment:UACC Narrative [facility] - 03/24/2025 10:36 AM EST Urine Culture No growth. Specimen Source: Urine clean catch Rufina Begum MD LAB MICROBIOLOGY - GE NERAL ORDERABLES Final Result [facility] [address] [place] [phone] from Last 3 Months Insurance [employer] LIMITED N FULL
--- OUTSIDE RECORDS SUMMARY | 2025-03-30 06:02 | XMS_ITS | Encounter Summary ---
Author Organization [facility] [facility] Address [address] [facility] 7[address] [place] [address] Care Team Providers Care Screedman Name Role Phone Unavailable Primary Care Provider Unavailabl e Encounter Details Date Type Department Care Team (Late st Contact Info) Description 03/28/2025 Orders Only [facility] [address] [place] [address] [phone] Rufina Soto MD [address] [place] [phone] Social History Tobacco Use Types Packs/Day Years [...] Description 05/09/2025 2:00 PM EST Office Visit [facility] [address] [place] [address] [phone] Rufina Soto MD [address] [place] [address] [phone] documented as of this encounter Visit Diagnoses Not on filedocumented in this encounter
[2025-03-30 06:04] VITALS: BP 118/55; PULSE 93; RESP 16; TEMP 36.7; O2SAT 98; BMI 34.5
--- NOTE | 2025-03-30 06:27 | ED.GENADULT ---
HPI - General Adult General Chief complaint: General Medical Stated complaint: vomitting Time Seen by Provider: 03/30/25 06:18 Source: patient Mode of arrival: ambulatory Limitations: language barrier (Patient's 1st language is Creole, she speaks some Hong Konger, iPad Creole phlebotomy support tech used) History of Present Illness ED Provider: Dr. Theron Hays HPI narrative: 30-year-old female (1 a topic, 1 miscarriage) who presents emergency department for evaluation of nausea and vomiting. Patient states she vomited 3 times this morning. She is and believes that she is about 5 weeks . She denied abdominal pain, fever, chills, or chills. She denied frequency, urgency, dysuria, vaginal discharge or vaginal bleeding. The patient's daughter is the patient here in the emergency department with viral illness with nausea and vomiting. The patient's son is also been sick for 1 week a viral-like illness. Related Data Previous Rx's ?Medication ?Instructions ?Recorded acetaminophen 325 mg tablet 650 mg (2 x 325 mg) PO Q6H PRN 09/27/22 (Tylenol) fever or pain #30 tabs ibuprofen 600 mg tablet 600 mg PO Q8H PRN pain #30 tabs 09/27/22 acetaminophen 500 mg tablet 1,000 mg (2 x 500 mg) PO Q6H PRN 03/30/25 (Tylenol Extra Strength) Abdominal pain or fever #20 tabs metoclopramide HCl 10 mg tablet 10 mg PO Q6H PRN Headache, nausea 03/30/25 (Reglan) and vomiting #20 tabs Allergies Allergy/AdvReac Type Severity Reaction Status Date / Time No Known Allergies Allergy Verified 03/30/25 06:10 Review of Systems Review of Systems: Yes all other systems are reviewed and are negative PMF Past Medical History Medical History Ectopic Missed Surgical History H/O dilation and curettage Hx of section Social History Social History Household Members: Spouse and Children Housing: House Are you a primary career placement specialist to a significant other at home: No Do you presently have visiting nurse or other home services: No Alcohol intake: never Comment: counts correct Patient Tobacco Use Status: Never used Tobacco Advance Directives: No Advance Directives Information Provided: Yes Current occupational status: unemployed Sexual orientation: Straight/Heterosexual Gender identity: Female Physical Exam ED Vital Signs: Vital Signs - 24 hr 03/30/25 06:04 Temperature 98.1 F Pulse Rate 93 Respiratory Rate 16 Blood Pressure 118/55 L Pulse Oximetry 98 Oxygen Delivery Method Room Air BMI result Body Mass Index 34.5 Vital signs were normal Exam: General: Awake, alert in no distress Head: Normocephalic, atraumatic EENT: PERRL, sclera and conjunctiva are normal, mouth with no erythema or exudates Neck: Supple, no adenopathy Lung: breath sounds symmetric, no wheezing, no rales and no rhonchi Chest: symmetric movement, nontender Heart: regular rate and rhythm, normal S1, S2 no murmurs or rubs Abdomen: soft, non-tender, nondistended, normal bowel sounds Back: no vertebral tenderness, no CVAT Extremities: no deformities, moves all extremities symmetrically, no edema Neuro: Awake, alert, oriented, normal speech, cranial nerves 2-12 intact, moves all extremities symmetrically Psych: Pleasant, cooperative Medications Administered Discontinued Medications Generic Name Dose Route Start Last Admin Trade Name Freq PRN Reason Stop Dose Admin Metoclopramide HCl 10 mg 03/30/25 07:46 03/30/25 08:01 Metoclopramide Hcl 10 Mg Tablet PO 03/30/25 07:47 10 mg ONCE STA Administration Medical Decision Making Medical Decision Making MDM Narrative: 30-year-old female (1 a topic, 1 miscarriage) who presents emergency department for evaluation of nausea and vomiting. Patient states she vomited 3 times this morning. She is and believes that she is about 5 weeks . She denied abdominal pain, fever, chills, or chills. She denied frequency, urgency, dysuria, vaginal discharge or vaginal bleeding. The patient's daughter is the patient here in the emergency department with viral illness with nausea and vomiting. The patient's son is also been sick for 1 week a viral-like illness. Vital signs were normal. Physical examination was unremarkable. Differential diagnosis: ?Includes but is not limited to viral syndrome, COVID-19, influenza, RSV, related emesis, gastritis Course: Differential Diagnosis Differential Diagnoses: The differential diagnosis associated with the presentation includes (See above) Admission/Observation Consideration of admission/observation: Escalation of care including admission/observation considered (Yes) Lab Data MDM Lab Attestation statement: I reviewed the patient's lab results. Labs: Lab Results 03/30/25 Range/Units 06:37 Influenza Type A (PCR) NEGATIVE (Negative) Influenza Type B (PCR) NEGATIVE (Negative) RSV RNA Qual (PCR) NEGATIVE (Negative) SARS-CoV-2 RNA (RT-PCR) NEGATIVE (Negative) Prescription Management I considered prescription management with: Pain Medication (Prescribed extra-strength Tylenol) and Other (I prescribed Reglan 10 mg) Discharge Plan Discharge Clinical Impression: Viral syndrome, , Nausea & vomiting Patient Disposition: Home, Self-Care Instructions: Viral Syndrome (ED) Additional Instructions: Your COVID-19, influenza and RSV tests were negative Your symptoms are consistent with a viral infection. Viral infections can last anywhere from 1-3 weeks. Your body usually can fight off the virus and we treat the symptoms with medications Take Reglan (metoclopramide) 10 mg pills, 1 pill every 6 hours as needed for nausea and vomiting Take Tylenol (acetaminophen) 500 mg pills, 2 pills every 6 hours as needed for pain or fever. Keep your follow-up appointment with your OBGYN doctor. Follow-up with your doctor in 2 days. Please return to the emergency department if your symptoms get worse or if you develop any symptoms that are concerning to you. Prescriptions: New metoclopramide HCl [Reglan] 10 mg tablet 10 mg PO Q6H PRN (Reason: Headache, nausea and vomiting) Qty: 20 0RF acetaminophen [Tylenol Extra Strength] 500 mg tablet 1,000 mg PO Q6H PRN (Reason: Abdominal pain or fever) Qty: 20 0RF No Action ibuprofen 600 mg tablet 600 mg PO Q8H PRN (Reason: pain) Qty: 30 0RF acetaminophen [Tylenol] 325 mg tablet 650 mg PO Q6H PRN (Reason: fever or pain) Qty: 30 0RF Print Language: Libyan Creisidro
--- NOTE | 2025-03-30 07:19 | PC.NURSE ---
Provider in to eval pt with online marketing specialist svc. FELIZ
[2025-03-30 07:20] LABS: Resp Syncy Virus RNA Qual PCR NEGATIVE (Negative); SARS COV2 PCR INHOUSE NEGATIVE (Negative)
[2025-03-30 09:53] VITALS: BP 118/55; PULSE 93; RESP 16; TEMP 36.7; O2SAT 98
[2025-03-30 10:07] VITALS: BP 146/70; PULSE 74; RESP 14; TEMP 36.8; O2SAT 95
--- NOTE | 2025-03-30 10:07 | PC.NURSE ---
Pt roomed and placed on full monitor- NSR no ectopy- provider evaluating pt now. VSS.
== END 2025-03-30 10:00 | disposition home or self-care (01) ==
PROVIDERS: Emergency Provider Emergency Medicine Emergency Medical Services
DX: O26.891 Other specified pregnancy related conditions, first trimester (principal); B34.9 Viral infection, unspecified; R11.2 Nausea with vomiting, unspecified; Z03.818 Encounter for observation for suspected exposure to other biological agents ruled out
CPT/HCPCS: 87637; 99282; 99283